=== PATIENT | male | born 1985 | race Caucasian/White ===

== ENCOUNTER 2018-08-04 04:33 | Emergency (ER) | payer MEDICARE, OTHER ==
[~2018-08-04] VITALS: Ht 185.4 cm; Wt 104.3 kg
[~2018-08-04 04:33] MED LIST: ALBIPROI INH; ALBU3IS; ALBU8HFA2 INH; ALBU90OI INH; AMITIZA; AMOCLA875 PO; ANAS1 PO; ARIP15 PO; ARIP30 PO; ATOR20 PO; AZIT250 PO; AZIT500; Acidophilus La100 GM PO; Amoxicillin500 MG PO; Amphetamine Sal20 MG PO; Bactrim Ds Tab1 EACH PO; Bactroban22 GM TOP; CHOL10002 PO; CIME400 PO; CLAR500CR PO; CLIN150 PO; CLON.1 PO; CLOT1TC TOP; CYCL10 PO; Cleocin HCl300 MG PO; DIABETIC VITAMINS; DICL25ER TOP; DIPH50 PO; DOCU100 PO; DOXE50; DOXE50 PO; DOXY100 PO; DULERA 200 MCG/13 GM INH; FENT25TP TOP; FEXPSEER; FLUO20 PO; FLUT.05NI; FURO20 PO; GLUC500 PO; GUAI600T33 PO; HYDACE10 PO; HYDACE10B PO; HYDACE5 PO; HYDCHL50 PO; HYDGUAL120 PO; HYDMOR4 PO; HYDR1TAB94 PO; IBUP800 PO; INS70/30PN SUBQ; INSDET100 SUBQ; INSU100I6; INSUASPI; INSUASPI SC; INSUL100I SUBQ; KETO10 PO; Keflex500 MG PO; LAMO25 PO; LANS30EC; LATUDA20 MG PO; LATUDA40 MG PO; LEVEMIR FL100 UNIT/1; LISI5 PO; LORA1 PO; LORA2 PO; MAGCIT300 PO; MEDICAL MARIJUANA; METF500 PO; METF500C PO; METH10 PO; METH5 PO; METO10 PO; MODA200 PO; MOMENI; MONT10T; MORP30 PO; MORP30ER PO; MULVITMIND PO; MUSCLE RELAXER; NAPR500; NAPR500 PO; OMEP20ER PO; ONDA4ODT MM; ONDA4ODT PO; OXYACE10 PO; OXYACE5T PO; OXYC5 PO; PANT40 PO; PENVK500 PO; POLY17UD PO; POTCHL20ER PO; PRED10; PRED20 PO; PREG100 PO; PROCODE120 PO; PROM25 PO; PROM25S PR; PSYL5.85P PO; RANI150 PO; SENN187 PO; SILSUL1TC TOP; SIMV40 PO; SULTRIDS PO; Senna8.6 M1 PO; Senna8.6 MG PO; TAMS.4ER PO; TEMA15; TEMA30 PO; TIZANIDINE HCL4 MG PO; TRAM50 PO; VITAMIN D PO; VITAMINS; VOLTAREN GEL; ZESTORETIC 20-1 EACH PO; ZOLP5 PO; ZYRTEC10 M2 PO; [UNRECOGNIZED DRUG - OTHER]
== END 2018-08-04 05:23 | disposition home or self-care (01) ==
LOC: ER 04:33
DX: E10.65 Type 1 diabetes mellitus with hyperglycemia (principal); F10.10 Alcohol abuse, uncomplicated; Z88.1 Allergy status to other antibiotic agents; Z79.4 Long term (current) use of insulin; I10 Essential (primary) hypertension; E10.40 Type 1 diabetes mellitus with diabetic neuropathy, unspecified; Z87.891 Personal history of nicotine dependence
CPT/HCPCS: 82947; 99283

== ENCOUNTER 2020-10-17 18:54 | Emergency (ER) | payer MEDICARE, OTHER ==
[~2020-10-17] VITALS: Ht 188 cm; Wt 172.4 kg
[~2020-10-17 18:54] MED LIST changes: -LEVEMIR FL100 UNIT/1; +LEVEMIR FL100 UNIT/2 SC
[2020-10-17 19:20] LABS: Hematocrit 35.7 % (37.0-53.0); Hemoglobin 11.4 g/dL (13.5-17.5); Mean Corpuscular HGB 30.2 pg (26.0-34.0); Mean Corpuscular HGB Conc 31.9 g/dL (31.5-36.5); Mean Corpuscular Volume 95 fL (80-100); Mean Platelet Volume 11.1 fL (9.1-12.4); NRBC ABSOLUTE 1.82 K/mm3 (0.00-0.02); NRBC Auto 1.4 /100 WBC (0.0-0.2); Platelet Count 158 K/mm3 (150-400); RDW Coefficient Variation 15.9 % (11.7-14.2); RDW Standard Deviation 54.6 fL (35.1-46.3); Red Blood Cell Count 3.77 M/mm3 (4.30-5.90)
[2020-10-17 19:27] LABS: White Blood Cell Count 132.63 K/mm3 (4.00-11.30)
[2020-10-17 19:40] LABS: Alanine Aminotransfer (ALT/SGP 37 U/L (12-78); Albumin, Blood 3.4 g/dL (3.4-5.0); Albumin/Globulin Ratio 0.7 (0.8-1.8); Alk Phos 128 U/L (50-136); Anion Gap 6 mmol/L (6-16); Aspartate Aminotrans (AST/SGOT 27 U/L (12-37); Bilirubin, Total 0.6 mg/dL (0.1-1.0); Blood Urea Nitrogen 9 mg/dL (8-24); Bun/Creatinine Ratio 10.2 (12.0-20.0); CO2, Blood 27 mmol/L (21-32); Chloride, Blood 104 mmol/L (98-108); Creatinine, Blood 0.88 mg/dL (0.60-1.20); Globulin, Blood 4.9 g/dL (2.2-4.0); Glomerular Filtration Rate >60 (60-); Glucose, Blood 145 mg/dL (70-99); Potassium, Blood 3.9 mmol/L (3.5-5.5); Sodium, Blood 137 mmol/L (136-145); Total Protein, Blood 8.3 g/dL (6.4-8.2); Troponin I <0.015 ng/mL (0.000-0.040)
[2020-10-17] MEDS ORDERED: FIASP 100100 UNIT/3 SC (19:54)
[2020-10-17] MEDS ORDERED: Prilosec10 M1 PO (19:57)
[2020-10-17 20:12] LABS: BAND PERCENT MAN 6 % (0-8); BASOPHILS ABSOLUTE MAN 11.93 K/mm3 (0.00-0.23); BASOPHILS PERCENT MAN 9 % (0-2); BLASTS PERCENT MAN 12 % (0-0); EOSINOPHILS ABSOLUTE MAN 3.97 K/mm3 (0.00-0.68); EOSINOPHILS PERCENT MAN 3 % (0-6); LYMPHOCYTES ABSOLUTE MAN 7.95 K/mm3 (0.84-5.20); LYMPHOCYTES PERCENT MAN 6 % (21-46); METAMYELOCYTE ABSOLUTE MAN 11.93 K/mm3 (0.00-0.00); METAMYELOCYTE PERCENT MAN 9 % (0-0); MONOCYTES ABSOLUTE MAN 10.61 K/mm3 (0.16-1.47); MONOCYTES PERCENT MAN 8 % (4-13); MYELOCYTE ABSOLUTE MAN 2.65 K/mm3 (0.00-0.00); MYELOCYTE PERCENT MAN 2 % (0-0); NEUTROPHILS ABSOLUTE MAN 67.64 K/mm3 (1.96-9.15); SEG NEUTROPHILS PERCENT MAN 45 % (41-73); TOTAL CELLS COUNTED 100
[2020-10-17 21:53] LABS: Influenza A, PCR NEGATIVE (NEGATIVE); Influenza B, PCR NEGATIVE (NEGATIVE); Resp Syncytial Virus, PCR NEGATIVE (NEGATIVE); SARS-Cov-2 (COVID-19) PCR, MMC NEGATIVE (NEGATIVE)
== END 2020-10-18 04:29 | disposition short-term general hospital (02) ==
LOC: ER 18:54
PROVIDERS: Emergency Medicine; Physician Assistant
DX: R16.1 Splenomegaly, not elsewhere classified (principal); R59.1 Generalized enlarged lymph nodes; G47.30 Sleep apnea, unspecified; E66.9 Obesity, unspecified; L03.115 Cellulitis of right lower limb; I96 Gangrene, not elsewhere classified; Z79.4 Long term (current) use of insulin; Z79.899 Other long term (current) drug therapy; Z20.822 Contact with and (suspected) exposure to COVID-19
CPT/HCPCS: 0241U; 36415; 71046; 71260; 80053; 82947; 83605; 84484; 85025; 87040; 93005; 93010; 96361; 96374; 96375; 99285-25; J1170; J1885; J2060; J2405; J7030; Q9967

== ENCOUNTER 2021-05-29 10:38 | Emergency (ER) | payer MEDICARE, OTHER ==
[~2021-05-29] VITALS: Ht 188 cm; Wt 167.8 kg
[~2021-05-29 10:38] MED LIST changes: +FIASP 100100 UNIT/3 SC; +Prilosec10 M1 PO
[2021-05-29 11:08] LABS: BASOPHILS ABSOLUTE AUTO 0.03 K/mm3 (0.00-0.23); BASOPHILS PERCENT AUTO 0 % (0-2); EOSINOPHILS PERCENT AUTO 3 % (0-6); Hematocrit 44.9 % (37.0-53.0); Hemoglobin 15.4 g/dL (13.5-17.5); Mean Corpuscular HGB 31.1 pg (26.0-34.0); Mean Corpuscular HGB Conc 34.3 g/dL (31.5-36.5); Mean Corpuscular Volume 91 fL (80-100); Platelet Count 271 K/mm3 (150-400); RDW Coefficient Variation 12.6 % (11.7-14.2); RDW Standard Deviation 41.5 fL (35.1-46.3); Red Blood Cell Count 4.95 M/mm3 (4.30-5.90); White Blood Cell Count 11.25 K/mm3 (4.00-11.30)
[2021-05-29 11:25] LABS: IMMATURE GRAN ABSOLUTE AUTO 0.02 K/mm3 (0.00-0.10); IMMATURE GRAN PERCENT AUTO 0 % (0-1); LYMPHOCYTES ABSOLUTE AUTO 4.15 K/mm3 (0.84-5.20); MONOCYTES ABSOLUTE AUTO 0.87 K/mm3 (0.16-1.47); MONOCYTES PERCENT AUTO 8 % (4-13); NEUTROPHILS ABSOLUTE AUTO 5.88 K/mm3 (1.96-9.15); NEUTROPHILS PERCENT AUTO 52 % (41-73)
[2021-05-29 11:26] LABS: Alanine Aminotransfer (ALT/SGP 34 U/L (12-78); Albumin, Blood 3.6 g/dL (3.4-5.0); Albumin/Globulin Ratio 0.9 (0.8-1.8); Alk Phos 129 U/L (50-136); Anion Gap 8 mmol/L (6-16); Aspartate Aminotrans (AST/SGOT 34 U/L (12-37); Bilirubin, Total 0.4 mg/dL (0.1-1.0); Blood Urea Nitrogen 11 mg/dL (8-24); Bun/Creatinine Ratio 10.5 (12.0-20.0); CO2, Blood 25 mmol/L (21-32); Calcium, Blood 9.1 mg/dL (8.5-10.1); Chloride, Blood 105 mmol/L (98-108); Creatinine, Blood 1.05 mg/dL (0.60-1.20); Glomerular Filtration Rate >60 (60-); Glucose, Blood 185 mg/dL (70-99); Potassium, Blood 4.3 mmol/L (3.5-5.5); Sodium, Blood 138 mmol/L (136-145); Total Protein, Blood 7.6 g/dL (6.4-8.2)
[2021-05-29 11:41] LABS: LYMPHOCYTES PERCENT AUTO 37 % (21-46)
[2021-05-29 12:41] LABS: Source, Urine Clean Catch
[2021-05-29 12:48] LABS: Appearance, Urine Hazy (Clear); Bilirubin, Urine Neg (Neg); Blood, Urine 4+ (Neg); Color, Urine Yellow (P-Yellow); Glucose Qualitative, Urine Neg (Neg); Ketones, Urine Neg (Neg); Leukocyte Esterase, Urine Neg (Neg); Nitrite, Urine Neg (Neg); Protein, Urine 1+ (Neg); Specific Gravity, Urine 1.025 (1.003-1.022); Urobilinogen, Urine NORM (Normal)
[2021-05-29] MEDS ORDERED: OXYACE7.5T PO (13:08)
[2021-05-29 13:16] LABS: Squamous Epithelial Cells Few /hpf (Few); White Blood Cells, Urine 0-2 /hpf (0-5)
[2021-05-29 13:17] LABS: Bacteria Few /hpf
== END 2021-05-29 13:44 | disposition home or self-care (01) ==
LOC: ER 10:38
PROVIDERS: Physician Assistant
DX: N13.2 Hydronephrosis with renal and ureteral calculous obstruction (principal); I10 Essential (primary) hypertension; E10.40 Type 1 diabetes mellitus with diabetic neuropathy, unspecified; K21.9 Gastro-esophageal reflux disease without esophagitis; E78.5 Hyperlipidemia, unspecified; J44.9 Chronic obstructive pulmonary disease, unspecified; Z88.1 Allergy status to other antibiotic agents; Z79.899 Other long term (current) drug therapy; Z87.891 Personal history of nicotine dependence
CPT/HCPCS: 36415; 74176; 80053; 81001; 83690; 85025; 96374; 96375; 99284-25; A9270; J1170; J1885; J2405; J7030

== ENCOUNTER 2021-05-31 06:18 | Emergency (ER) | payer MEDICARE, OTHER ==
[~2021-05-31] VITALS: Ht 188 cm; Wt 167.8 kg
[~2021-05-31 06:18] MED LIST changes: +OXYACE7.5T PO
[2021-05-31] MEDS ORDERED: METO50ER PO (06:47)
[2021-05-31] MEDS ORDERED: 1/2 NS 250ml250 ML (06:48)
[2021-05-31] MEDS ORDERED: Gleevec400 MG PO (06:48)
[2021-05-31 07:00] LABS: BASOPHILS ABSOLUTE AUTO 0.02 K/mm3 (0.00-0.23); BASOPHILS PERCENT AUTO 0 % (0-2); EOSINOPHILS PERCENT AUTO 1 % (0-6); Hematocrit 40.3 % (37.0-53.0); Hemoglobin 13.5 g/dL (13.5-17.5); IMMATURE GRAN ABSOLUTE AUTO 0.03 K/mm3 (0.00-0.10); IMMATURE GRAN PERCENT AUTO 0 % (0-1); LYMPHOCYTES ABSOLUTE AUTO 1.15 K/mm3 (0.84-5.20); LYMPHOCYTES PERCENT AUTO 10 % (21-46); MONOCYTES ABSOLUTE AUTO 1.08 K/mm3 (0.16-1.47); MONOCYTES PERCENT AUTO 9 % (4-13); Mean Corpuscular HGB 30.8 pg (26.0-34.0); Mean Corpuscular HGB Conc 33.5 g/dL (31.5-36.5); Mean Corpuscular Volume 92 fL (80-100); Mean Platelet Volume 12.3 fL (9.1-12.4); NEUTROPHILS ABSOLUTE AUTO 9.58 K/mm3 (1.96-9.15); NEUTROPHILS PERCENT AUTO 80 % (41-73); Platelet Count 178 K/mm3 (150-400); RDW Coefficient Variation 12.4 % (11.7-14.2); RDW Standard Deviation 42.4 fL (35.1-46.3); Red Blood Cell Count 4.38 M/mm3 (4.30-5.90); White Blood Cell Count 11.96 K/mm3 (4.00-11.30)
[2021-05-31 07:22] LABS: Alanine Aminotransfer (ALT/SGP 32 U/L (12-78); Albumin, Blood 3.5 g/dL (3.4-5.0); Alk Phos 124 U/L (50-136); Anion Gap 5 mmol/L (6-16); Aspartate Aminotrans (AST/SGOT 24 U/L (12-37); Bilirubin, Total 0.5 mg/dL (0.1-1.0); Blood Urea Nitrogen 13 mg/dL (8-24); Bun/Creatinine Ratio 9.9 (12.0-20.0); CO2, Blood 28 mmol/L (21-32); Calcium, Blood 8.8 mg/dL (8.5-10.1); Chloride, Blood 103 mmol/L (98-108); Creatinine, Blood 1.31 mg/dL (0.60-1.20); Globulin, Blood 3.6 g/dL (2.2-4.0); Glomerular Filtration Rate >60 (60-); Glucose, Blood 123 mg/dL (70-99); Sodium, Blood 136 mmol/L (136-145); Total Protein, Blood 7.1 g/dL (6.4-8.2)
[2021-05-31 08:25] LABS: Source, Urine Clean Catch
[2021-05-31 08:40] LABS: Appearance, Urine Clear (Clear); Bilirubin, Urine Neg (Neg); Blood, Urine 5+ (Neg); Color, Urine Yellow (P-Yellow); Glucose Qualitative, Urine Neg (Neg); Ketones, Urine 3+ (Neg); Leukocyte Esterase, Urine 1+ (Neg); Nitrite, Urine Neg (Neg); Protein, Urine Neg (Neg); Specific Gravity, Urine 1.015 (1.003-1.022); Urobilinogen, Urine NORM (Normal)
[2021-05-31 09:15] LABS: Squamous Epithelial Cells Few /hpf (Few)
[2021-05-31 09:16] LABS: Bacteria Rare /hpf
[2021-05-31] MEDS ORDERED: OXYC5 PO (10:27)
[2021-05-31] MEDS ORDERED: ADULT GLYCERIN1 EACH PR (10:27)
[2021-05-31] MEDS ORDERED: BISA5EC PO (10:27)
== END 2021-05-31 10:49 | disposition home or self-care (01) ==
LOC: ER 06:18
PROVIDERS: Emergency Medicine
DX: N20.0 Calculus of kidney (principal); K59.00 Constipation, unspecified; K21.9 Gastro-esophageal reflux disease without esophagitis; E78.5 Hyperlipidemia, unspecified; E10.40 Type 1 diabetes mellitus with diabetic neuropathy, unspecified; I10 Essential (primary) hypertension; F17.220 Nicotine dependence, chewing tobacco, uncomplicated; Z88.7 Allergy status to serum and vaccine; Z79.899 Other long term (current) drug therapy
CPT/HCPCS: 36415; 80053; 81001; 83690; 84484; 85025; 87086; 93005; 93010; 96374; 96375; 96376; 99284-25; J1170; J1885; J2405; J7030

== ENCOUNTER 2021-08-08 19:52 | Emergency (ER) | payer MEDICARE, OTHER ==
[~2021-08-08] VITALS: Ht 188 cm; Wt 165.6 kg
[~2021-08-08 19:52] MED LIST changes: +1/2 NS 250ml250 ML; +ADULT GLYCERIN1 EACH PR; +BISA5EC PO; +Gleevec400 MG PO; +METO50ER PO
[2021-08-08 20:11] LABS: BASOPHILS ABSOLUTE AUTO 0.03 K/mm3 (0.00-0.23); BASOPHILS PERCENT AUTO 0 % (0-2); EOSINOPHILS PERCENT AUTO 2 % (0-6); Hematocrit 42.4 % (37.0-53.0); Hemoglobin 14.3 g/dL (13.5-17.5); IMMATURE GRAN ABSOLUTE AUTO 0.03 K/mm3 (0.00-0.10); IMMATURE GRAN PERCENT AUTO 0 % (0-1); LYMPHOCYTES PERCENT AUTO 29 % (21-46); MONOCYTES ABSOLUTE AUTO 0.85 K/mm3 (0.16-1.47); MONOCYTES PERCENT AUTO 7 % (4-13); Mean Corpuscular HGB 30.8 pg (26.0-34.0); Mean Corpuscular HGB Conc 33.7 g/dL (31.5-36.5); Mean Corpuscular Volume 91 fL (80-100); Mean Platelet Volume 12.3 fL (9.1-12.4); NEUTROPHILS ABSOLUTE AUTO 7.26 K/mm3 (1.96-9.15); NEUTROPHILS PERCENT AUTO 62 % (41-73); Platelet Count 282 K/mm3 (150-400); RDW Coefficient Variation 13.2 % (11.7-14.2); RDW Standard Deviation 43.8 fL (35.1-46.3); Red Blood Cell Count 4.65 M/mm3 (4.30-5.90); White Blood Cell Count 11.77 K/mm3 (4.00-11.30)
[2021-08-08] MEDS ORDERED: METOPROLOL TART25 MG PO (20:33)
[2021-08-08] MEDS ORDERED: PRILOSEC OTC20 MG PO (20:34)
[2021-08-08] MEDS ORDERED: OXYC10TA19 PO (20:35)
[2021-08-08] MEDS ORDERED: COMPAZINE10 MG PO (20:36)
[2021-08-08 20:44] LABS: Source, Urine Clean Catch
[2021-08-08 20:47] LABS: Appearance, Urine Clear (Clear); Bilirubin, Urine Neg (Neg); Blood, Urine Neg (Neg); Color, Urine Yellow (P-Yellow); Glucose Qualitative, Urine Neg (Neg); Ketones, Urine Neg (Neg); Leukocyte Esterase, Urine Neg (Neg); Nitrite, Urine Neg (Neg); Protein, Urine 2+ (Neg); Specific Gravity, Urine 1.015 (1.003-1.022); Urobilinogen, Urine NORM (Normal)
[2021-08-08 20:55] LABS: Bacteria Few /hpf; Red Blood Cells, Urine Not Seen /hpf (0-2); Squamous Epithelial Cells Few /hpf (Few); White Blood Cells, Urine 0-2 /hpf (0-5)
[2021-08-08 21:39] LABS: Troponin I <0.015 ng/mL (0.000-0.040)
[2021-08-08 22:00] LABS: Alanine Aminotransfer (ALT/SGP 33 U/L (12-78); Albumin, Blood 3.8 g/dL (3.4-5.0); Albumin/Globulin Ratio 1.2 (0.8-1.8); Alk Phos 134 U/L (50-136); Anion Gap 3 mmol/L (6-16); Aspartate Aminotrans (AST/SGOT 27 U/L (12-37); Bilirubin, Total 0.4 mg/dL (0.1-1.0); Blood Urea Nitrogen 13 mg/dL (8-24); Bun/Creatinine Ratio 13.9 (12.0-20.0); CO2, Blood 28 mmol/L (21-32); Calcium, Blood 8.9 mg/dL (8.5-10.1); Chloride, Blood 109 mmol/L (98-108); Creatinine, Blood 0.94 mg/dL (0.60-1.20); Globulin, Blood 3.2 g/dL (2.2-4.0); Glomerular Filtration Rate >60 (60-); Glucose, Blood 41 mg/dL (70-99); Potassium, Blood 4.1 mmol/L (3.5-5.5); Sodium, Blood 140 mmol/L (136-145)
[2021-08-08] MEDS ORDERED: ONDA4ODT SL (22:38)
== END 2021-08-08 22:42 | disposition home or self-care (01) ==
LOC: ER 19:52
PROVIDERS: Emergency Medicine; Physician Assistant
DX: R10.9 Unspecified abdominal pain (principal); C92.10 Chronic myeloid leukemia, BCR/ABL-positive, not having achieved remission; E87.8 Other disorders of electrolyte and fluid balance, not elsewhere classified; E10.40 Type 1 diabetes mellitus with diabetic neuropathy, unspecified; I10 Essential (primary) hypertension; K21.9 Gastro-esophageal reflux disease without esophagitis; E78.5 Hyperlipidemia, unspecified; J44.9 Chronic obstructive pulmonary disease, unspecified; F17.220 Nicotine dependence, chewing tobacco, uncomplicated; Z88.1 Allergy status to other antibiotic agents; Z79.899 Other long term (current) drug therapy
CPT/HCPCS: 36415; 71045; 76705; 80053; 81001; 82947; 84484; 85025; 93005; 93010; 96374; 99284-25; A9270; J2405; J7030

== ENCOUNTER → 2021-08-13 | Outpatient (CLI) | payer MEDICARE, OTHER ==
[~2021-08-13] MED LIST changes: +COMPAZINE10 MG PO; +METOPROLOL TART25 MG PO; +ONDA4ODT SL; +OXYC10TA19 PO; +PRILOSEC OTC20 MG PO
[2021-08-13 20:33] LABS: BASOPHILS ABSOLUTE AUTO 0.03 K/mm3 (0.00-0.23); BASOPHILS PERCENT AUTO 0 % (0-2); EOSINOPHILS PERCENT AUTO 1 % (0-6); Hematocrit 45.5 % (37.0-53.0); Hemoglobin 15.3 g/dL (13.5-17.5); IMMATURE GRAN ABSOLUTE AUTO 0.03 K/mm3 (0.00-0.10); IMMATURE GRAN PERCENT AUTO 0 % (0-1); LYMPHOCYTES ABSOLUTE AUTO 2.52 K/mm3 (0.84-5.20); LYMPHOCYTES PERCENT AUTO 20 % (21-46); MONOCYTES PERCENT AUTO 7 % (4-13); Mean Corpuscular HGB 30.4 pg (26.0-34.0); Mean Corpuscular HGB Conc 33.6 g/dL (31.5-36.5); Mean Corpuscular Volume 91 fL (80-100); NEUTROPHILS ABSOLUTE AUTO 9.35 K/mm3 (1.96-9.15); NEUTROPHILS PERCENT AUTO 72 % (41-73); Platelet Count 275 K/mm3 (150-400); RDW Coefficient Variation 13.2 % (11.7-14.2); RDW Standard Deviation 43.5 fL (35.1-46.3); Red Blood Cell Count 5.03 M/mm3 (4.30-5.90); White Blood Cell Count 12.93 K/mm3 (4.00-11.30)
[2021-08-13 20:38] LABS: Mean Platelet Volume 13.3 fL (9.1-12.4)
[2021-08-13 20:53] LABS: Amylase, Blood 28 U/L (25-115); Thyroid Stimulating Hormone 0.602 uIU/mL (0.360-4.800)
[2021-08-13 21:02] LABS: Alanine Aminotransfer (ALT/SGP 35 U/L (12-78); Albumin/Globulin Ratio 1.2 (0.8-1.8); Alk Phos 135 U/L (50-136); Anion Gap 8 mmol/L (6-16); Aspartate Aminotrans (AST/SGOT 19 U/L (12-37); Bilirubin, Total 0.5 mg/dL (0.1-1.0); Blood Urea Nitrogen 9 mg/dL (8-24); Bun/Creatinine Ratio 9.9 (12.0-20.0); CO2, Blood 27 mmol/L (21-32); Calcium, Blood 9.6 mg/dL (8.5-10.1); Chloride, Blood 107 mmol/L (98-108); Creatinine, Blood 0.91 mg/dL (0.60-1.20); Globulin, Blood 3.4 g/dL (2.2-4.0); Glomerular Filtration Rate >60 (60-); Glucose, Blood 49 mg/dL (70-99); Potassium, Blood 4.4 mmol/L (3.5-5.5); Sodium, Blood 142 mmol/L (136-145); Total Protein, Blood 7.4 g/dL (6.4-8.2)
== END | disposition home or self-care (01) ==
LOC: LAB SHORT 19:55
PROVIDERS: Physician Assistant
DX: R10.11 Right upper quadrant pain (principal); R31.9 Hematuria, unspecified; R53.83 Other fatigue
CPT/HCPCS: 80053; 82150; 83690; 84443; 85025; 87086

== ENCOUNTER → 2022-03-09 | Outpatient (CLI) | payer MEDICARE, OTHER ==
[2022-03-11 09:58] LABS: U Amphetamine Screen Not Detected; U Barbituate Screen Not Detected; U Benzodiazapine Screen Not Detected; U Buprenorphine Screen Not Detected; U Cannabinoids Screen DETECTED; U Cocaine Screen Not Detected; U Methadone Screen Not Detected; U Methamphetamine Screen Not Detected; U Opiates Screen Not Detected; U Oxycodone Screen Not Detected; U Phencyclidine Screen Not Detected; U Propoxyphene Screen Not Detected
== END | disposition home or self-care (01) ==
LOC: LAB 18:07 → LAB SHORT 18:07
PROVIDERS: Internal Medicine Hematology & Oncology
DX: Z51.81 Encounter for therapeutic drug level monitoring (principal); Z79.899 Other long term (current) drug therapy

== ENCOUNTER → 2022-03-29 | Outpatient (CLI) | payer MEDICARE, OTHER ==
[2022-03-29 19:41] LABS: U Amphetamine Screen Not Detected; U Barbituate Screen Not Detected; U Benzodiazapine Screen Not Detected; U Cocaine Screen Not Detected; U Methadone Screen Not Detected; U Methamphetamine Screen Not Detected; U Opiates Screen DETECTED; U Oxycodone Screen DETECTED; U Phencyclidine Screen Not Detected
[2022-03-29 19:42] LABS: U Buprenorphine Screen Not Detected; U Cannabinoids Screen Not Detected; U Propoxyphene Screen Not Detected
== END | disposition home or self-care (01) ==
LOC: LAB SHORT 15:28 → LAB 15:28
PROVIDERS: Internal Medicine Hematology & Oncology
DX: Z51.81 Encounter for therapeutic drug level monitoring (principal); Z79.899 Other long term (current) drug therapy

== ENCOUNTER → 2022-04-08 | Outpatient (CLI) | payer MEDICARE, OTHER ==
[2022-04-08 19:37] LABS: U Amphetamine Screen Not Detected; U Barbituate Screen Not Detected; U Benzodiazapine Screen Not Detected; U Buprenorphine Screen Not Detected; U Cannabinoids Screen Not Detected; U Cocaine Screen Not Detected; U Methadone Screen Not Detected; U Methamphetamine Screen Not Detected; U Opiates Screen DETECTED; U Oxycodone Screen DETECTED; U Phencyclidine Screen Not Detected; U Propoxyphene Screen Not Detected
== END | disposition home or self-care (01) ==
LOC: LAB SHORT 18:51 → LAB 18:51
PROVIDERS: Internal Medicine Hematology & Oncology
DX: N50.811 Right testicular pain (principal); Z79.899 Other long term (current) drug therapy

== ENCOUNTER → 2022-04-26 | Outpatient (CLI) | payer MEDICARE, OTHER ==
[2022-04-26 17:56] LABS: U Cannabinoids Screen DETECTED
[2022-04-26 17:57] LABS: U Amphetamine Screen Not Detected; U Barbituate Screen Not Detected; U Benzodiazapine Screen DETECTED; U Buprenorphine Screen Not Detected; U Cocaine Screen Not Detected; U Methadone Screen Not Detected; U Methamphetamine Screen Not Detected; U Opiates Screen Not Detected; U Oxycodone Screen DETECTED; U Phencyclidine Screen Not Detected; U Propoxyphene Screen Not Detected
== END ==
LOC: LAB SHORT 17:09
PROVIDERS: Internal Medicine Hematology & Oncology
DX: Z79.899 Other long term (current) drug therapy (principal)

== ENCOUNTER → 2022-05-25 | Outpatient (CLI) | payer MEDICARE, OTHER ==
[~2022-05-25] MED LIST changes: +INSULIN SYRING SC; +NOVOLIN N100 UNIT/2 SC; +NOVOLOG FL100 UNIT/3 SC
[2022-05-25 13:48] LABS: U Benzodiazapine Screen DETECTED; U Buprenorphine Screen Not Detected; U Cannabinoids Screen DETECTED; U Opiates Screen Not Detected; U Oxycodone Screen DETECTED; U Phencyclidine Screen Not Detected; U Propoxyphene Screen Not Detected
[2022-05-25 13:49] LABS: U Amphetamine Screen Not Detected; U Barbituate Screen Not Detected; U Cocaine Screen Not Detected; U Methadone Screen Not Detected; U Methamphetamine Screen Not Detected
== END ==
LOC: LAB SHORT 11:39 → LAB 11:39
PROVIDERS: Internal Medicine Hematology & Oncology
DX: Z51.81 Encounter for therapeutic drug level monitoring (principal); Z79.899 Other long term (current) drug therapy
CPT/HCPCS: G0480

== ENCOUNTER 2022-06-07 14:40 | Emergency (ER) | payer MEDICARE, OTHER ==
[~2022-06-07] VITALS: Ht 188 cm; Wt 154.2 kg
[~2022-06-07 14:40] MED LIST changes: -INSULIN SYRING SC; -NOVOLIN N100 UNIT/2 SC; -NOVOLOG FL100 UNIT/3 SC
[2022-06-07] MEDS ORDERED: NOVOLIN N100 UNIT/2 SC (15:28)
[2022-06-07] MEDS ORDERED: INSULIN SYRING SC (15:30)
[2022-06-07] MEDS ORDERED: NOVOLOG FL100 UNIT/3 SC (15:56)
== END 2022-06-07 15:32 | disposition home or self-care (01) ==
LOC: ER 14:40
DX: Z76.0 Encounter for issue of repeat prescription (principal); E10.9 Type 1 diabetes mellitus without complications; I10 Essential (primary) hypertension; K21.9 Gastro-esophageal reflux disease without esophagitis; J44.9 Chronic obstructive pulmonary disease, unspecified; Z88.1 Allergy status to other antibiotic agents; Z79.4 Long term (current) use of insulin; Z79.899 Other long term (current) drug therapy; Z79.2 Long term (current) use of antibiotics
CPT/HCPCS: 99281

== ENCOUNTER → 2022-06-24 | Outpatient (CLI) | payer MEDICARE, OTHER ==
[~2022-06-24] MED LIST changes: +INSULIN SYRING SC; +NOVOLIN N100 UNIT/2 SC; +NOVOLOG FL100 UNIT/3 SC
[2022-06-24 17:42] LABS: U Amphetamine Screen Not Detected; U Barbituate Screen Not Detected; U Benzodiazapine Screen DETECTED; U Methamphetamine Screen Not Detected
[2022-06-24 17:43] LABS: U Buprenorphine Screen Not Detected; U Cannabinoids Screen DETECTED; U Cocaine Screen Not Detected; U Methadone Screen Not Detected; U Opiates Screen DETECTED; U Oxycodone Screen DETECTED; U Phencyclidine Screen Not Detected; U Propoxyphene Screen Not Detected
[2022-06-24 18:13] LABS: Thyroxine (T4) 10.7 ug/dL (4.5-12.1)
[2022-06-24 18:14] LABS: Thyroid Stimulating Hormone 1.25 uIU/mL (0.360-4.800)
[2022-06-25 21:10] LABS: FREE TESTOSTERONE(DIRECT) 9.6 pg/mL (8.7-25.1); TESTOSTERONE, SERUM 287 ng/dL (264-916)
== END | disposition home or self-care (01) ==
LOC: LAB SHORT 15:01 → LAB 15:01
PROVIDERS: Internal Medicine Hematology & Oncology
DX: E29.1 Testicular hypofunction (principal); Z79.899 Other long term (current) drug therapy
CPT/HCPCS: 84402; 84403; 84436; 84443

== ENCOUNTER 2022-06-27 18:41 | Emergency (ER) | payer MEDICARE, OTHER ==
[~2022-06-27] VITALS: Ht 188 cm; Wt 154.2 kg
[2022-06-27 20:20] LABS: BASOPHILS ABSOLUTE AUTO 0.02 K/mm3 (0.00-0.23); BASOPHILS PERCENT AUTO 0 % (0-2); EOSINOPHILS ABSOLUTE AUTO 0.06 K/mm3 (0.00-0.68); EOSINOPHILS PERCENT AUTO 1 % (0-6); Hemoglobin 14.4 g/dL (13.5-17.5); IMMATURE GRAN ABSOLUTE AUTO 0.03 K/mm3 (0.00-0.10); IMMATURE GRAN PERCENT AUTO 0 % (0-1); LYMPHOCYTES ABSOLUTE AUTO 2.42 K/mm3 (0.84-5.20); LYMPHOCYTES PERCENT AUTO 24 % (21-46); MONOCYTES ABSOLUTE AUTO 0.52 K/mm3 (0.16-1.47); MONOCYTES PERCENT AUTO 5 % (4-13); Mean Corpuscular HGB 30.8 pg (26.0-34.0); Mean Corpuscular HGB Conc 34.3 g/dL (31.5-36.5); Mean Corpuscular Volume 90 fL (80-100); Mean Platelet Volume 12.4 fL (9.1-12.4); NEUTROPHILS ABSOLUTE AUTO 7.13 K/mm3 (1.96-9.15); NEUTROPHILS PERCENT AUTO 70 % (41-73); Platelet Count 239 K/mm3 (150-400); RDW Coefficient Variation 12.4 % (11.7-14.2); RDW Standard Deviation 40.9 fL (35.1-46.3); Red Blood Cell Count 4.68 M/mm3 (4.30-5.90); White Blood Cell Count 10.18 K/mm3 (4.00-11.30)
[2022-06-27 20:36] LABS: Albumin, Blood 3.8 g/dL (3.4-5.0); Albumin/Globulin Ratio 1.1 (0.8-1.8); Bilirubin, Total 0.7 mg/dL (0.1-1.0); Bun/Creatinine Ratio 10.8 (12.0-20.0); Calcium, Blood 8.8 mg/dL (8.5-10.1); Creatinine, Blood 0.92 mg/dL (0.60-1.20); Globulin, Blood 3.4 g/dL (2.2-4.0); Potassium, Blood 3.7 mmol/L (3.5-5.5); Total Protein, Blood 7.2 g/dL (6.4-8.2)
[2022-06-27 21:25] LABS: Influenza A, PCR NEGATIVE (NEGATIVE); Influenza B, PCR NEGATIVE (NEGATIVE); Resp Syncytial Virus, PCR NEGATIVE (NEGATIVE); SARS-Cov-2 (COVID-19) PCR, MMC NEGATIVE (NEGATIVE)
== END 2022-06-28 00:25 | disposition left against medical advice (07) ==
LOC: ER 18:41
PROVIDERS: Student in an Organized Health Care Education/Training Program
DX: R53.1 Weakness (principal); R51.9 Headache, unspecified; H53.8 Other visual disturbances; E10.40 Type 1 diabetes mellitus with diabetic neuropathy, unspecified; I10 Essential (primary) hypertension; K21.9 Gastro-esophageal reflux disease without esophagitis; E78.5 Hyperlipidemia, unspecified; J44.9 Chronic obstructive pulmonary disease, unspecified; Z87.891 Personal history of nicotine dependence; Z20.822 Contact with and (suspected) exposure to COVID-19; Z88.1 Allergy status to other antibiotic agents; Z79.899 Other long term (current) drug therapy
CPT/HCPCS: 0241U; 36415; 70450; 71045; 80053; 83690; 84484; 85025; 93005; 93010; A9270; J0780; J2405

== ENCOUNTER → 2022-07-13 | Outpatient (CLI) | payer MEDICARE, OTHER ==
[2022-07-13 17:59] LABS: U Amphetamine Screen Not Detected; U Barbituate Screen Not Detected; U Benzodiazapine Screen Not Detected; U Buprenorphine Screen Not Detected; U Cannabinoids Screen DETECTED; U Cocaine Screen Not Detected; U Methadone Screen Not Detected; U Methamphetamine Screen Not Detected; U Opiates Screen Not Detected; U Oxycodone Screen DETECTED; U Phencyclidine Screen Not Detected; U Propoxyphene Screen Not Detected
== END | disposition home or self-care (01) ==
LOC: LAB 16:13 → LAB SHORT 16:13
PROVIDERS: Internal Medicine Hematology & Oncology
DX: Z51.81 Encounter for therapeutic drug level monitoring (principal); Z79.899 Other long term (current) drug therapy

== ENCOUNTER → 2022-08-19 | Outpatient (CLI) | payer MEDICARE, OTHER ==
[2022-08-19 19:52] LABS: Hematocrit 45.3 % (37.0-53.0); Hemoglobin 15.4 g/dL (13.5-17.5); Mean Corpuscular HGB 30.6 pg (26.0-34.0); Mean Corpuscular Volume 90 fL (80-100); Mean Platelet Volume 12.4 fL (9.1-12.4); Platelet Count 289 K/mm3 (150-400); RDW Coefficient Variation 12.4 % (11.7-14.2); RDW Standard Deviation 40.5 fL (35.1-46.3); Red Blood Cell Count 5.03 M/mm3 (4.30-5.90); White Blood Cell Count 21.41 K/mm3 (4.00-11.30)
[2022-08-19 20:33] LABS: BAND PERCENT MAN 2 % (0-8); BASOPHILS ABSOLUTE MAN 0.85 K/mm3 (0.00-0.23); BASOPHILS PERCENT MAN 4 % (0-2); EOSINOPHILS ABSOLUTE MAN 0.21 K/mm3 (0.00-0.68); EOSINOPHILS PERCENT MAN 1 % (0-6); LYMPHOCYTES ABSOLUTE MAN 4.06 K/mm3 (0.84-5.20); LYMPHOCYTES PERCENT MAN 19 % (21-46); MONOCYTES ABSOLUTE MAN 1.92 K/mm3 (0.16-1.47); MONOCYTES PERCENT MAN 9 % (4-13); MYELOCYTE ABSOLUTE MAN 1.49 K/mm3 (0.00-0.00); MYELOCYTE PERCENT MAN 7 % (0-0); NEUTROPHILS ABSOLUTE MAN 12.84 K/mm3 (1.96-9.15); SEG NEUTROPHILS PERCENT MAN 58 % (41-73); TOTAL CELLS COUNTED 100
[2022-08-19 22:12] LABS: Albumin/Globulin Ratio 1.2 (0.8-1.8); Bilirubin, Total 0.3 mg/dL (0.1-1.0); Bun/Creatinine Ratio 11.4 (12.0-20.0); Calcium, Blood 9.6 mg/dL (8.5-10.1); Creatinine, Blood 1.05 mg/dL (0.60-1.20); Globulin, Blood 3.2 g/dL (2.2-4.0); Potassium, Blood 4.5 mmol/L (3.5-5.5); Total Protein, Blood 7.2 g/dL (6.4-8.2)
== END | disposition home or self-care (01) ==
LOC: LAB SHORT 17:20 → LAB 17:20
PROVIDERS: Internal Medicine Hematology & Oncology
DX: D72.829 Elevated white blood cell count, unspecified (principal)
CPT/HCPCS: 80053; 84100; 85025

== ENCOUNTER 2022-08-20 16:20 | Emergency (ER) | payer MEDICARE, OTHER ==
[~2022-08-20] VITALS: Ht 188 cm; Wt 156.5 kg
[2022-08-20 17:09] LABS: Hematocrit 41.8 % (37.0-53.0); Hemoglobin 14.3 g/dL (13.5-17.5); Mean Corpuscular HGB 30.3 pg (26.0-34.0); Mean Corpuscular HGB Conc 34.2 g/dL (31.5-36.5); Mean Corpuscular Volume 89 fL (80-100); Mean Platelet Volume 12.3 fL (9.1-12.4); Platelet Count 238 K/mm3 (150-400); RDW Coefficient Variation 12.3 % (11.7-14.2); RDW Standard Deviation 39.9 fL (35.1-46.3); Red Blood Cell Count 4.72 M/mm3 (4.30-5.90); White Blood Cell Count 16.84 K/mm3 (4.00-11.30)
[2022-08-20 17:31] LABS: Albumin, Blood 3.6 g/dL (3.4-5.0); Albumin/Globulin Ratio 1.1 (0.8-1.8); Bilirubin, Total 0.2 mg/dL (0.1-1.0); Bun/Creatinine Ratio 10.9 (12.0-20.0); Calcium, Blood 8.9 mg/dL (8.5-10.1); Creatinine, Blood 0.91 mg/dL (0.60-1.20); Globulin, Blood 3.2 g/dL (2.2-4.0); Potassium, Blood 4.4 mmol/L (3.5-5.5); Total Protein, Blood 6.8 g/dL (6.4-8.2)
[2022-08-20 17:47] LABS: Influenza A, PCR NEGATIVE (NEGATIVE); Influenza B, PCR NEGATIVE (NEGATIVE); Resp Syncytial Virus, PCR NEGATIVE (NEGATIVE); SARS-Cov-2 (COVID-19) PCR, MMC NEGATIVE (NEGATIVE)
[2022-08-20 18:33] LABS: Source, Urine Clean Catch
[2022-08-20 18:43] LABS: BAND PERCENT MAN 1 % (0-8); BASOPHILS ABSOLUTE MAN 0.16 K/mm3 (0.00-0.23); BASOPHILS PERCENT MAN 1 % (0-2); EOSINOPHILS PERCENT MAN 0 % (0-6); LYMPHOCYTES ABSOLUTE MAN 3.36 K/mm3 (0.84-5.20); LYMPHOCYTES PERCENT MAN 20 % (21-46); METAMYELOCYTE ABSOLUTE MAN 0.67 K/mm3 (0.00-0.00); METAMYELOCYTE PERCENT MAN 4 % (0-0); MONOCYTES ABSOLUTE MAN 1.85 K/mm3 (0.16-1.47); MONOCYTES PERCENT MAN 11 % (4-13); MYELOCYTE ABSOLUTE MAN 0.67 K/mm3 (0.00-0.00); MYELOCYTE PERCENT MAN 4 % (0-0); SEG NEUTROPHILS PERCENT MAN 59 % (41-73); TOTAL CELLS COUNTED 100
[2022-08-20 18:50] LABS: Appearance, Urine Clear (Clear); Bilirubin, Urine Neg (Neg); Blood, Urine Neg (Neg); Color, Urine Yellow (P-Yellow); Glucose Qualitative, Urine Neg (Neg); Ketones, Urine Neg (Neg); Leukocyte Esterase, Urine Neg (Neg); Nitrite, Urine Neg (Neg); Protein, Urine Neg (Neg); Urobilinogen, Urine NORM (Normal)
== END 2022-08-20 20:53 | disposition home or self-care (01) ==
LOC: ER 16:20
PROVIDERS: Physician Assistant
DX: R07.9 Chest pain, unspecified (principal); R10.9 Unspecified abdominal pain; R53.83 Other fatigue; E10.9 Type 1 diabetes mellitus without complications; I10 Essential (primary) hypertension; K21.9 Gastro-esophageal reflux disease without esophagitis; J44.9 Chronic obstructive pulmonary disease, unspecified; F17.220 Nicotine dependence, chewing tobacco, uncomplicated; Z88.1 Allergy status to other antibiotic agents; Z20.822 Contact with and (suspected) exposure to COVID-19; Z79.4 Long term (current) use of insulin; Z79.899 Other long term (current) drug therapy
CPT/HCPCS: 0241U; 36415; 71046; 80053; 81003; 83605; 84484; 85025; 85379; 93005; 93010; J2405

== ENCOUNTER 2022-10-04 16:38 | Observation (INO) | payer MEDICARE, OTHER ==
[~2022-10-04] VITALS: Ht 188 cm; Wt 158.8 kg
[2022-10-04 17:28] LABS: Hematocrit 42.2 % (37.0-53.0); Hemoglobin 14.6 g/dL (13.5-17.5); Mean Corpuscular HGB 30.7 pg (26.0-34.0); Mean Corpuscular HGB Conc 34.6 g/dL (31.5-36.5); Mean Corpuscular Volume 89 fL (80-100); Mean Platelet Volume 11.8 fL (9.1-12.4); NRBC ABSOLUTE 0.06 K/mm3 (0.00-0.02); NRBC Auto 0.1 /100 WBC (0.0-0.2); Platelet Count 186 K/mm3 (150-400); RDW Coefficient Variation 14.6 % (11.7-14.2); RDW Standard Deviation 46.3 fL (35.1-46.3); Red Blood Cell Count 4.75 M/mm3 (4.30-5.90)
[2022-10-04 17:36] LABS: White Blood Cell Count 51.38 K/mm3 (4.00-11.30)
[2022-10-04 18:02] LABS: Albumin, Blood 3.9 g/dL (3.4-5.0); Albumin/Globulin Ratio 1.1 (0.8-1.8); Bilirubin, Total 0.5 mg/dL (0.1-1.0); Bun/Creatinine Ratio 20.1 (12.0-20.0); Calcium, Blood 9.6 mg/dL (8.5-10.1); Creatinine, Blood 0.75 mg/dL (0.60-1.20); Globulin, Blood 3.7 g/dL (2.2-4.0); Potassium, Blood 4.4 mmol/L (3.5-5.5); Total Protein, Blood 7.6 g/dL (6.4-8.2)
[2022-10-04 18:03] LABS: BAND PERCENT MAN 13 % (0-8); BASOPHILS ABSOLUTE MAN 1.54 K/mm3 (0.00-0.23); BASOPHILS PERCENT MAN 3 % (0-2); BLASTS PERCENT MAN 1 % (0-0); EOSINOPHILS ABSOLUTE MAN 0.51 K/mm3 (0.00-0.68); EOSINOPHILS PERCENT MAN 1 % (0-6); LYMPHOCYTES ABSOLUTE MAN 2.56 K/mm3 (0.84-5.20); LYMPHOCYTES PERCENT MAN 5 % (21-46); METAMYELOCYTE ABSOLUTE MAN 2.56 K/mm3 (0.00-0.00); METAMYELOCYTE PERCENT MAN 5 % (0-0); MONOCYTES ABSOLUTE MAN 3.08 K/mm3 (0.16-1.47); MONOCYTES PERCENT MAN 6 % (4-13); MYELOCYTE ABSOLUTE MAN 2.05 K/mm3 (0.00-0.00); MYELOCYTE PERCENT MAN 4 % (0-0); NEUTROPHILS ABSOLUTE MAN 38.53 K/mm3 (1.96-9.15); SEG NEUTROPHILS PERCENT MAN 62 % (41-73); TOTAL CELLS COUNTED 100
[2022-10-04 19:51] LABS: Source, Urine Clean Catch
[2022-10-04 20:01] LABS: Appearance, Urine Clear (Clear); Bilirubin, Urine Neg (Neg); Blood, Urine Neg (Neg); Color, Urine Yellow (P-Yellow); Glucose Qualitative, Urine Neg (Neg); Ketones, Urine Neg (Neg); Leukocyte Esterase, Urine Neg (Neg); Nitrite, Urine Neg (Neg); Protein, Urine Neg (Neg); Urobilinogen, Urine NORM (Normal)
[2022-10-04 21:00] LABS: Thyroid Stimulating Hormone 0.515 uIU/mL (0.360-4.800)
[2022-10-04] MEDS ORDERED: ROXICODONE15 MG PO (23:00)
[2022-10-04] MEDS ORDERED: LOSA25 PO (23:01)
[2022-10-05 00:17] LABS: Free Thyroxine 1.06 ng/dL (0.70-1.60)
--- NOTE | 2022-10-05 01:03 | NUR ---
ADMIT NOTE HANDOFF RECEIVED FROM TENSION WORKER LOLIS. PT ARRIVED TO FLOOR VIA GURNEY. PERSONAL POSSESSIONS WITH PT. PT ORIENTED TO UNIT. CALL BUTTON WITHIN REACH. IV FLUIDS INFUSING ORDERED. TELEMETRY IN PLACE
--- NOTE | 2022-10-05 01:13 | NUR ---
PT STATUS PT REFUSING COVID SWAB TEST. PT DID ATTEMPT TO TAKE HIS HOME INSULIN IN HIS ROOM. WE TESTED HIS BLOOD SUGAR AT 77. I DID INFORM HIM THAT THE HOSPITAL WOULD PROVIDE HIS MEDICATIONS ENTIRELY AND HE WAS NOT TO TAKE HIS HOME MEDICATIONS. HE DID REFUSE TO GIVE HIS HOME MEDICATIONS TO US FOR SAFE KEEPING. CHARGE INFORMED.
[2022-10-05 02:01] LABS: U Amphetamine Screen Not Detected; U Barbituate Screen Not Detected; U Benzodiazapine Screen Not Detected; U Cannabinoids Screen DETECTED; U Cocaine Screen Not Detected; U Methamphetamine Screen Not Detected; U Oxycodone Screen DETECTED
[2022-10-05 02:02] LABS: U Buprenorphine Screen Not Detected; U Methadone Screen Not Detected; U Opiates Screen Not Detected; U Phencyclidine Screen Not Detected; U Propoxyphene Screen Not Detected
[2022-10-05] MEDS ORDERED: MONT10T PO (03:47)
[2022-10-05] MEDS ORDERED: Sprycel20 MG PO (03:49)
[2022-10-05] MEDS ORDERED: NALOXONE HCL4 MG (03:50)
[2022-10-05] MEDS ORDERED: NOVOLOG FL100 UNIT/3 SC (03:54)
[2022-10-05] MEDS ORDERED: BASAGLAR K100 UNIT/8 SC (03:55)
--- NOTE | 2022-10-05 04:27 | NUR ---
SHIFT SUMMARY ADMITTED FROM ED THIS SHIFT FOR LEUKOCYTOSIS. PAIN MEDS AND NICOTINE REPLACEMENT ORDERED. IV FLUIDS INFUSING. AM LABS PENDING. WILL CONTINUE TO MONITOR AND PROVIDE CARE THROUGHOUT SHIFT.
[2022-10-05 07:52] LABS: Hematocrit 40.4 % (37.0-53.0); Hemoglobin 13.8 g/dL (13.5-17.5); Mean Corpuscular HGB Conc 34.2 g/dL (31.5-36.5); Mean Corpuscular Volume 91 fL (80-100); Mean Platelet Volume 11.7 fL (9.1-12.4); NRBC ABSOLUTE 0.12 K/mm3 (0.00-0.02); NRBC Auto 0.2 /100 WBC (0.0-0.2); Platelet Count 166 K/mm3 (150-400); RDW Coefficient Variation 14.6 % (11.7-14.2); RDW Standard Deviation 47.8 fL (35.1-46.3); Red Blood Cell Count 4.45 M/mm3 (4.30-5.90); White Blood Cell Count 48.55 K/mm3 (4.00-11.30)
[2022-10-05 08:10] LABS: Albumin, Blood 3.6 g/dL (3.4-5.0); Bilirubin, Total 0.4 mg/dL (0.1-1.0); Bun/Creatinine Ratio 18.9 (12.0-20.0); Creatinine, Blood 0.9 mg/dL (0.60-1.20); Globulin, Blood 3.5 g/dL (2.2-4.0); Potassium, Blood 4.2 mmol/L (3.5-5.5); Total Protein, Blood 7.1 g/dL (6.4-8.2)
[2022-10-05 08:19] LABS: BAND PERCENT MAN 10 % (0-8); BASOPHILS ABSOLUTE MAN 1.94 K/mm3 (0.00-0.23); BASOPHILS PERCENT MAN 4 % (0-2); EOSINOPHILS ABSOLUTE MAN 0.97 K/mm3 (0.00-0.68); EOSINOPHILS PERCENT MAN 2 % (0-6); LYMPHOCYTES ABSOLUTE MAN 1.45 K/mm3 (0.84-5.20); LYMPHOCYTES PERCENT MAN 3 % (21-46); METAMYELOCYTE ABSOLUTE MAN 1.45 K/mm3 (0.00-0.00); METAMYELOCYTE PERCENT MAN 3 % (0-0); MONOCYTES ABSOLUTE MAN 0.97 K/mm3 (0.16-1.47); MONOCYTES PERCENT MAN 2 % (4-13); MYELOCYTE ABSOLUTE MAN 1.45 K/mm3 (0.00-0.00); MYELOCYTE PERCENT MAN 3 % (0-0); NEUTROPHILS ABSOLUTE MAN 39.81 K/mm3 (1.96-9.15); SEG NEUTROPHILS PERCENT MAN 72 % (41-73); TOTAL CELLS COUNTED 100
[2022-10-05 08:20] LABS: PROMYELOCYTE ABSOLUTE MAN 0.48 K/mm3 (0.00-0.00); PROMYELOCYTE PERCENT MAN 1 % (0-0)
[2022-10-05] MEDS ORDERED: Ondansetron Odt8 MG SL (13:06)
--- NOTE | 2022-10-05 15:34 | NUR ---
Spiritual care visit attempted. Upon receiving a referral for spiritual care, I visited patient. Patient's RN asked If he would like to see the Property Site Manager to which the patient replied, "Not today, I am not feeling well." I will cotcelianue to remain available to patient and family.
[2022-10-05] MEDS ORDERED: NICO2 PO (18:04)
[2022-10-05] MEDS ORDERED: HYDURE500 PO (18:07)
--- NOTE | 2022-10-05 18:51 | NUR ---
SHIFT SUMMARY PT A&OX4 AND PLEASANT. PT C/O GENERALIZED CHRONIC PAIN. MEDICATED PER EMAR. PT VERBALIZED THAT INSULIN COVERAGE WAS NOT ENOUGH TO MANAGE HIS DM. PT PLACED ON MED SLIDING SCALE. PT CONTINUED TO VERBALIZE THAT MED SCALE WAS STILL NOT ENOUGH COVERAGE AND STATED HE "TAKES 45 UNITS WITH MEALS". DR BROWNE NOTIFIED AND PT PLACED ON HIGH SLIDING SCALE. PT'S AFTERNOON BG WAS 54. ORANGE JUICE GIVEN AND BG RECHECKED. 1630 INSULIN NOT GIVEN. PT TO DISCHARGE. BED IN LOWEST POSITION AND CALL LIGHT IN REACH.
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
== END 2022-10-05 20:01 | disposition home or self-care (01) ==
LOC: ER 16:38 → MEDS 16:39
PROVIDERS: Physician Assistant; ADMIT Internal Medicine
DX: C92.10 Chronic myeloid leukemia, BCR/ABL-positive, not having achieved remission (principal); E10.40 Type 1 diabetes mellitus with diabetic neuropathy, unspecified; I10 Essential (primary) hypertension; R42 Dizziness and giddiness; R51.9 Headache, unspecified; F43.10 Post-traumatic stress disorder, unspecified; J44.9 Chronic obstructive pulmonary disease, unspecified; K21.9 Gastro-esophageal reflux disease without esophagitis; Z88.1 Allergy status to other antibiotic agents; Z79.899 Other long term (current) drug therapy; Z79.4 Long term (current) use of insulin; Z87.891 Personal history of nicotine dependence
CPT/HCPCS: 36415; 70450; 71046; 74177; 80053; 80400; 81003; 82533; 82947; 83690; 83735; 83880; 84439; 84443; 85025; 93005; 93010; 93306; 96361; 96372; 96374-59; 96375; 96376; 99285-25; A9270; G0378; J0834; J1650; J1885; J2405; J7030; Q9967

== ENCOUNTER → 2022-10-08 | Outpatient (CLI) | payer MEDICARE, OTHER ==
[~2022-10-08] MED LIST changes: +BASAGLAR K100 UNIT/8 SC; +HYDURE500 PO; +LOSA25 PO; +MONT10T PO; +NALOXONE HCL4 MG; +NICO2 PO; +Ondansetron Odt8 MG SL; +ROXICODONE15 MG PO; +Sprycel20 MG PO
[2022-10-08 18:22] LABS: Hematocrit 41.1 % (37.0-53.0); Hemoglobin 13.7 g/dL (13.5-17.5); Mean Corpuscular HGB 30.6 pg (26.0-34.0); Mean Corpuscular HGB Conc 33.3 g/dL (31.5-36.5); Mean Corpuscular Volume 92 fL (80-100); Mean Platelet Volume 12.8 fL (9.1-12.4); NRBC ABSOLUTE 0.04 K/mm3 (0.00-0.02); NRBC Auto 0.1 /100 WBC (0.0-0.2); Platelet Count 173 K/mm3 (150-400); RDW Coefficient Variation 15.1 % (11.7-14.2); RDW Standard Deviation 50.5 fL (35.1-46.3); Red Blood Cell Count 4.48 M/mm3 (4.30-5.90)
[2022-10-08 18:53] LABS: BAND PERCENT MAN 14 % (0-8); BASOPHILS ABSOLUTE MAN 0.91 K/mm3 (0.00-0.23); BASOPHILS PERCENT MAN 2 % (0-2); EOSINOPHILS ABSOLUTE MAN 0.45 K/mm3 (0.00-0.68); EOSINOPHILS PERCENT MAN 1 % (0-6); LYMPHOCYTES ABSOLUTE MAN 1.83 K/mm3 (0.84-5.20); LYMPHOCYTES PERCENT MAN 4 % (21-46); METAMYELOCYTE ABSOLUTE MAN 1.83 K/mm3 (0.00-0.00); METAMYELOCYTE PERCENT MAN 4 % (0-0); MONOCYTES ABSOLUTE MAN 4.58 K/mm3 (0.16-1.47); MONOCYTES PERCENT MAN 10 % (4-13); MYELOCYTE ABSOLUTE MAN 2.74 K/mm3 (0.00-0.00); MYELOCYTE PERCENT MAN 6 % (0-0); NEUTROPHILS ABSOLUTE MAN 33.43 K/mm3 (1.96-9.15); SEG NEUTROPHILS PERCENT MAN 59 % (41-73); TOTAL CELLS COUNTED 100
== END | disposition home or self-care (01) ==
LOC: LAB 17:25 → LAB SHORT 17:25
PROVIDERS: Internal Medicine Hematology & Oncology
DX: C92.10 Chronic myeloid leukemia, BCR/ABL-positive, not having achieved remission (principal)
CPT/HCPCS: 85025

== ENCOUNTER 2022-10-20 04:49 | Emergency (ER) | payer MEDICARE, OTHER ==
[~2022-10-20] VITALS: Ht 188 cm; Wt 161.0 kg
[2022-10-20] MEDS ORDERED: Hydroxyurea500 MG PO (05:05)
[2022-10-20] MEDS ORDERED: ALLO300 PO (05:05)
[2022-10-20] MEDS ORDERED: Gleevec400 MG PO (05:06)
[2022-10-20 06:10] LABS: Source, Urine Clean Catch
[2022-10-20 06:15] LABS: Bilirubin, Urine Neg (Neg); Blood, Urine Neg (Neg); Glucose Qualitative, Urine 2+ (Neg); Ketones, Urine Neg (Neg); Leukocyte Esterase, Urine Neg (Neg); Nitrite, Urine Neg (Neg); Protein, Urine Neg (Neg); Specific Gravity, Urine 1.025 (1.003-1.022); Urobilinogen, Urine NORM (Normal)
[2022-10-20 06:16] LABS: BASOPHILS ABSOLUTE AUTO 0.23 K/mm3 (0.00-0.23); BASOPHILS PERCENT AUTO 2 % (0-2); EOSINOPHILS PERCENT AUTO 3 % (0-6); Hematocrit 33.9 % (37.0-53.0); Hemoglobin 11.9 g/dL (13.5-17.5); IMMATURE GRAN ABSOLUTE AUTO 0.61 K/mm3 (0.00-0.10); IMMATURE GRAN PERCENT AUTO 4 % (0-1); LYMPHOCYTES ABSOLUTE AUTO 3.01 K/mm3 (0.84-5.20); LYMPHOCYTES PERCENT AUTO 22 % (21-46); MONOCYTES ABSOLUTE AUTO 0.68 K/mm3 (0.16-1.47); MONOCYTES PERCENT AUTO 5 % (4-13); Mean Corpuscular HGB 31.7 pg (26.0-34.0); Mean Corpuscular HGB Conc 35.1 g/dL (31.5-36.5); Mean Corpuscular Volume 90 fL (80-100); Mean Platelet Volume 12.7 fL (9.1-12.4); NEUTROPHILS ABSOLUTE AUTO 8.85 K/mm3 (1.96-9.15); NEUTROPHILS PERCENT AUTO 64 % (41-73); NRBC ABSOLUTE 0.02 K/mm3 (0.00-0.02); NRBC Auto 0.1 /100 WBC (0.0-0.2); Platelet Count 247 K/mm3 (150-400); RDW Coefficient Variation 15.4 % (11.7-14.2); RDW Standard Deviation 49.2 fL (35.1-46.3); Red Blood Cell Count 3.75 M/mm3 (4.30-5.90); White Blood Cell Count 13.78 K/mm3 (4.00-11.30)
[2022-10-20 06:36] LABS: Albumin, Blood 3.5 g/dL (3.4-5.0); Albumin/Globulin Ratio 1.1 (0.8-1.8); Bilirubin, Total 0.4 mg/dL (0.1-1.0); Bun/Creatinine Ratio 20.3 (12.0-20.0); Calcium, Blood 8.5 mg/dL (8.5-10.1); Creatinine, Blood 0.84 mg/dL (0.60-1.20); Globulin, Blood 3.3 g/dL (2.2-4.0); Potassium, Blood 4.2 mmol/L (3.5-5.5); Total Protein, Blood 6.8 g/dL (6.4-8.2)
[2022-10-20 07:05] LABS: Appearance, Urine Clear (Clear); Color, Urine Yellow (P-Yellow)
== END 2022-10-20 09:41 | disposition home or self-care (01) ==
LOC: ER 04:49
PROVIDERS: Emergency Medicine
DX: E10.649 Type 1 diabetes mellitus with hypoglycemia without coma (principal); E10.40 Type 1 diabetes mellitus with diabetic neuropathy, unspecified; I10 Essential (primary) hypertension; K21.9 Gastro-esophageal reflux disease without esophagitis; E78.5 Hyperlipidemia, unspecified; J44.9 Chronic obstructive pulmonary disease, unspecified; F17.220 Nicotine dependence, chewing tobacco, uncomplicated; Z88.1 Allergy status to other antibiotic agents; Z79.899 Other long term (current) drug therapy
CPT/HCPCS: 80053; 81003; 82947; 85025; 96374; 99284-25; J1815; J2405

== ENCOUNTER 2022-10-26 09:17 | Emergency (ER) | payer MEDICARE, OTHER ==
[~2022-10-26] VITALS: Ht 188 cm; Wt 158.8 kg
[~2022-10-26 09:17] MED LIST changes: +ALLO300 PO; +Hydroxyurea500 MG PO
[2022-10-26 10:15] LABS: BASOPHILS ABSOLUTE AUTO 0.12 K/mm3 (0.00-0.23); BASOPHILS PERCENT AUTO 1 % (0-2); EOSINOPHILS ABSOLUTE AUTO 0.27 K/mm3 (0.00-0.68); EOSINOPHILS PERCENT AUTO 2 % (0-6); Hematocrit 36.8 % (37.0-53.0); Hemoglobin 12.5 g/dL (13.5-17.5); IMMATURE GRAN ABSOLUTE AUTO 0.08 K/mm3 (0.00-0.10); IMMATURE GRAN PERCENT AUTO 1 % (0-1); LYMPHOCYTES ABSOLUTE AUTO 2.39 K/mm3 (0.84-5.20); LYMPHOCYTES PERCENT AUTO 21 % (21-46); MONOCYTES ABSOLUTE AUTO 0.86 K/mm3 (0.16-1.47); MONOCYTES PERCENT AUTO 8 % (4-13); Mean Corpuscular HGB 31.3 pg (26.0-34.0); Mean Corpuscular Volume 92 fL (80-100); Mean Platelet Volume 12.1 fL (9.1-12.4); NEUTROPHILS ABSOLUTE AUTO 7.45 K/mm3 (1.96-9.15); NEUTROPHILS PERCENT AUTO 67 % (41-73); Platelet Count 283 K/mm3 (150-400); RDW Coefficient Variation 15.8 % (11.7-14.2); RDW Standard Deviation 52.7 fL (35.1-46.3); Red Blood Cell Count 3.99 M/mm3 (4.30-5.90); White Blood Cell Count 11.17 K/mm3 (4.00-11.30)
[2022-10-26 10:42] LABS: Albumin, Blood 3.9 g/dL (3.4-5.0); Albumin/Globulin Ratio 1.1 (0.8-1.8); Bilirubin, Total 0.4 mg/dL (0.1-1.0); Bun/Creatinine Ratio 16.3 (12.0-20.0); Calcium, Blood 8.9 mg/dL (8.5-10.1); Creatinine, Blood 0.92 mg/dL (0.60-1.20); Globulin, Blood 3.4 g/dL (2.2-4.0); Potassium, Blood 4.3 mmol/L (3.5-5.5); Total Protein, Blood 7.3 g/dL (6.4-8.2)
[2022-10-26 13:08] LABS: Source, Urine Clean Catch
[2022-10-26 13:22] LABS: Appearance, Urine Clear (Clear); Bilirubin, Urine Neg (Neg); Blood, Urine Neg (Neg); Color, Urine Yellow (P-Yellow); Glucose Qualitative, Urine Neg (Neg); Ketones, Urine Neg (Neg); Leukocyte Esterase, Urine 1+ (Neg); Nitrite, Urine Neg (Neg); Protein, Urine 1+ (Neg); Urobilinogen, Urine NORM (Normal)
[2022-10-26 13:39] LABS: Bacteria Rare /hpf; Red Blood Cells, Urine Not Seen /hpf (0-2); Squamous Epithelial Cells Few /hpf (Few)
== END 2022-10-26 15:55 | disposition home or self-care (01) ==
LOC: ER 09:17
PROVIDERS: Anesthesiology
DX: E10.65 Type 1 diabetes mellitus with hyperglycemia (principal); I10 Essential (primary) hypertension; R51.9 Headache, unspecified; R10.9 Unspecified abdominal pain; Z87.891 Personal history of nicotine dependence; Z88.1 Allergy status to other antibiotic agents; Z79.899 Other long term (current) drug therapy; Z79.4 Long term (current) use of insulin
CPT/HCPCS: 36415; 70450; 74177; 80053; 81001; 82947; 85025; 87086; 96360-59; 99285-25; A9270; J1200; J7120; Q9967

== ENCOUNTER 2022-11-15 15:41 | Emergency (ER) | payer MEDICARE, OTHER ==
[~2022-11-15] VITALS: Ht 188 cm; Wt 158.8 kg
[2022-11-15 17:52] LABS: BASOPHILS ABSOLUTE AUTO 0.35 K/mm3 (0.00-0.23); BASOPHILS PERCENT AUTO 2 % (0-2); EOSINOPHILS ABSOLUTE AUTO 0.11 K/mm3 (0.00-0.68); EOSINOPHILS PERCENT AUTO 1 % (0-6); Hematocrit 42.8 % (37.0-53.0); Hemoglobin 14.4 g/dL (13.5-17.5); IMMATURE GRAN ABSOLUTE AUTO 0.61 K/mm3 (0.00-0.10); IMMATURE GRAN PERCENT AUTO 4 % (0-1); LYMPHOCYTES ABSOLUTE AUTO 2.18 K/mm3 (0.84-5.20); LYMPHOCYTES PERCENT AUTO 15 % (21-46); MONOCYTES ABSOLUTE AUTO 1.04 K/mm3 (0.16-1.47); MONOCYTES PERCENT AUTO 7 % (4-13); Mean Corpuscular HGB 31.2 pg (26.0-34.0); Mean Corpuscular HGB Conc 33.6 g/dL (31.5-36.5); Mean Corpuscular Volume 93 fL (80-100); Mean Platelet Volume 12.4 fL (9.1-12.4); NEUTROPHILS ABSOLUTE AUTO 10.41 K/mm3 (1.96-9.15); NEUTROPHILS PERCENT AUTO 71 % (41-73); Platelet Count 312 K/mm3 (150-400); RDW Coefficient Variation 13.9 % (11.7-14.2); RDW Standard Deviation 47.5 fL (35.1-46.3); Red Blood Cell Count 4.61 M/mm3 (4.30-5.90)
[2022-11-15 18:12] LABS: Albumin, Blood 3.9 g/dL (3.4-5.0); Bilirubin, Total 0.5 mg/dL (0.1-1.0); Bun/Creatinine Ratio 18.1 (12.0-20.0); Calcium, Blood 9.3 mg/dL (8.5-10.1); Creatinine, Blood 0.94 mg/dL (0.60-1.20); Globulin, Blood 3.8 g/dL (2.2-4.0); Potassium, Blood 4.5 mmol/L (3.5-5.5); Total Protein, Blood 7.7 g/dL (6.4-8.2)
[2022-11-15 18:36] LABS: Source, Urine Clean Catch
[2022-11-15 19:04] LABS: Appearance, Urine Clear (Clear); Bilirubin, Urine Neg (Neg); Blood, Urine Neg (Neg); Color, Urine Yellow (P-Yellow); Glucose Qualitative, Urine Neg (Neg); Ketones, Urine Neg (Neg); Leukocyte Esterase, Urine Neg (Neg); Nitrite, Urine Neg (Neg); Protein, Urine Neg (Neg); Urobilinogen, Urine NORM (Normal)
== END 2022-11-15 20:42 | disposition home or self-care (01) ==
LOC: ER 15:41
PROVIDERS: Emergency Medicine; Physician Assistant
DX: R10.11 Right upper quadrant pain (principal); E10.9 Type 1 diabetes mellitus without complications; I10 Essential (primary) hypertension; J44.9 Chronic obstructive pulmonary disease, unspecified; Z79.899 Other long term (current) drug therapy; Z79.4 Long term (current) use of insulin; Z88.1 Allergy status to other antibiotic agents; Z87.891 Personal history of nicotine dependence
CPT/HCPCS: 36415; 74177; 80053; 81003; 82947; 83690; 85025; Q9967

== ENCOUNTER → 2022-11-23 | Outpatient (CLI) | payer MEDICARE, OTHER ==
[2022-11-23 20:17] LABS: U Amphetamine Screen Not Detected; U Barbituate Screen Not Detected; U Benzodiazapine Screen Not Detected; U Buprenorphine Screen DETECTED; U Cannabinoids Screen DETECTED; U Cocaine Screen Not Detected; U Methadone Screen Not Detected; U Methamphetamine Screen Not Detected; U Opiates Screen Not Detected; U Oxycodone Screen Not Detected; U Phencyclidine Screen Not Detected; U Propoxyphene Screen Not Detected
== END | disposition home or self-care (01) ==
LOC: LAB SHORT 16:05 → LAB 16:05
PROVIDERS: Internal Medicine Hematology & Oncology
DX: Z51.81 Encounter for therapeutic drug level monitoring (principal); Z79.899 Other long term (current) drug therapy

== ENCOUNTER → 2022-12-07 | Outpatient (CLI) | payer MEDICARE, OTHER ==
[2022-12-07 19:42] LABS: U Amphetamine Screen Not Detected; U Barbituate Screen Not Detected; U Benzodiazapine Screen Not Detected; U Buprenorphine Screen Not Detected; U Cannabinoids Screen DETECTED; U Cocaine Screen Not Detected; U Methadone Screen Not Detected; U Methamphetamine Screen Not Detected; U Opiates Screen DETECTED; U Oxycodone Screen Not Detected; U Phencyclidine Screen Not Detected; U Propoxyphene Screen Not Detected
== END | disposition home or self-care (01) ==
LOC: LAB SHORT 14:51 → LAB 14:51
PROVIDERS: Internal Medicine Hematology & Oncology
DX: Z51.81 Encounter for therapeutic drug level monitoring (principal); Z79.899 Other long term (current) drug therapy

== ENCOUNTER → 2022-12-30 | Outpatient (CLI) | payer MEDICARE, OTHER ==
[2022-12-30 18:46] LABS: U Amphetamine Screen Not Detected; U Barbituate Screen Not Detected; U Benzodiazapine Screen Not Detected; U Buprenorphine Screen Not Detected; U Cannabinoids Screen DETECTED; U Cocaine Screen Not Detected; U Methadone Screen Not Detected; U Methamphetamine Screen Not Detected; U Opiates Screen Not Detected; U Oxycodone Screen DETECTED; U Phencyclidine Screen Not Detected; U Propoxyphene Screen Not Detected
== END | disposition home or self-care (01) ==
LOC: LAB 18:27 → LAB SHORT 18:27
PROVIDERS: Internal Medicine Hematology & Oncology
DX: Z51.81 Encounter for therapeutic drug level monitoring (principal); Z79.899 Other long term (current) drug therapy

== ENCOUNTER → 2023-01-11 | Outpatient (CLI) | payer MEDICARE, OTHER ==
[2023-01-11 18:13] LABS: U Amphetamine Screen Not Detected; U Barbituate Screen Not Detected; U Benzodiazapine Screen Not Detected; U Buprenorphine Screen Not Detected; U Cannabinoids Screen DETECTED; U Cocaine Screen Not Detected; U Methadone Screen Not Detected; U Methamphetamine Screen Not Detected; U Opiates Screen Not Detected; U Oxycodone Screen DETECTED; U Phencyclidine Screen Not Detected; U Propoxyphene Screen Not Detected
[2023-01-16 15:07] LABS: CARBOXY-THC 243 (.)
== END | disposition home or self-care (01) ==
LOC: LAB 16:51 → LAB SHORT 16:51
PROVIDERS: Internal Medicine Hematology & Oncology
DX: Z51.81 Encounter for therapeutic drug level monitoring (principal); Z79.899 Other long term (current) drug therapy
CPT/HCPCS: G0480

== ENCOUNTER → 2023-02-14 | Outpatient (CLI) | payer MEDICARE, OTHER ==
[2023-02-14 19:30] LABS: U Amphetamine Screen DETECTED; U Buprenorphine Screen Not Detected; U Cannabinoids Screen DETECTED; U Opiates Screen DETECTED; U Oxycodone Screen DETECTED; U Propoxyphene Screen Not Detected
[2023-02-14 19:31] LABS: U Barbituate Screen Not Detected; U Benzodiazapine Screen Not Detected; U Cocaine Screen Not Detected; U Methadone Screen Not Detected; U Methamphetamine Screen Not Detected; U Phencyclidine Screen Not Detected
[2023-02-19 09:10] LABS: CARBOXY-THC >137 (.)
== END | disposition home or self-care (01) ==
LOC: LAB 18:39 → LAB SHORT 18:39
PROVIDERS: Internal Medicine Hematology & Oncology
DX: Z51.81 Encounter for therapeutic drug level monitoring (principal); Z79.899 Other long term (current) drug therapy
CPT/HCPCS: G0480

== ENCOUNTER → 2023-02-15 | Outpatient (CLI) | payer MEDICARE, OTHER ==
[2023-02-24 12:09] LABS: B2A2 TRANSCRIPT Comment: % (.)
== END ==
LOC: LAB 11:16 → LAB SHORT 11:16
PROVIDERS: Internal Medicine Hematology & Oncology
DX: C92.10 Chronic myeloid leukemia, BCR/ABL-positive, not having achieved remission (principal)
CPT/HCPCS: 81206; 81207

== ENCOUNTER → 2023-02-28 | Outpatient (CLI) | payer MEDICARE, OTHER ==
[2023-02-28 20:11] LABS: U Amphetamine Screen DETECTED; U Barbituate Screen Not Detected; U Benzodiazapine Screen Not Detected; U Buprenorphine Screen Not Detected; U Cocaine Screen Not Detected; U Methadone Screen Not Detected; U Methamphetamine Screen Not Detected; U Opiates Screen DETECTED; U Oxycodone Screen DETECTED; U Phencyclidine Screen Not Detected; U Propoxyphene Screen Not Detected
[2023-02-28 20:12] LABS: U Cannabinoids Screen DETECTED
[2023-03-06 11:08] LABS: CARBOXY-THC 129 (.)
== END | disposition home or self-care (01) ==
LOC: LAB 19:22 → LAB SHORT 19:22
PROVIDERS: Internal Medicine Hematology & Oncology
DX: Z51.81 Encounter for therapeutic drug level monitoring (principal); Z79.899 Other long term (current) drug therapy
CPT/HCPCS: G0480

== ENCOUNTER → 2023-03-14 | Outpatient (CLI) | payer MEDICARE, OTHER ==
[2023-03-14 14:58] LABS: U Amphetamine Screen Not Detected; U Barbituate Screen Not Detected; U Benzodiazapine Screen Not Detected; U Buprenorphine Screen Not Detected; U Cannabinoids Screen DETECTED; U Cocaine Screen Not Detected; U Methadone Screen Not Detected; U Methamphetamine Screen Not Detected; U Opiates Screen DETECTED; U Oxycodone Screen DETECTED; U Phencyclidine Screen Not Detected; U Propoxyphene Screen Not Detected
[2023-03-17 16:09] LABS: CARBOXY-THC 358 (.)
== END | disposition home or self-care (01) ==
LOC: LAB 13:42 → LAB SHORT 13:42
PROVIDERS: Internal Medicine Hematology & Oncology
DX: Z51.81 Encounter for therapeutic drug level monitoring (principal); Z79.899 Other long term (current) drug therapy
CPT/HCPCS: G0480

== ENCOUNTER 2023-04-30 17:32 | Emergency (ER) | payer MEDICARE, OTHER ==
[~2023-04-30] VITALS: Ht 188 cm; Wt 99.8 kg
[2023-04-30 18:02] LABS: BASOPHILS ABSOLUTE AUTO 0.06 K/mm3 (0.00-0.23); BASOPHILS PERCENT AUTO 1 % (0-2); EOSINOPHILS ABSOLUTE AUTO 0.07 K/mm3 (0.00-0.68); EOSINOPHILS PERCENT AUTO 1 % (0-6); Hematocrit 43.9 % (37.0-53.0); Hemoglobin 14.7 g/dL (13.5-17.5); IMMATURE GRAN ABSOLUTE AUTO 0.04 K/mm3 (0.00-0.10); IMMATURE GRAN PERCENT AUTO 0 % (0-1); LYMPHOCYTES ABSOLUTE AUTO 1.74 K/mm3 (0.84-5.20); LYMPHOCYTES PERCENT AUTO 15 % (21-46); MONOCYTES ABSOLUTE AUTO 0.66 K/mm3 (0.16-1.47); MONOCYTES PERCENT AUTO 6 % (4-13); Mean Corpuscular HGB 29.3 pg (26.0-34.0); Mean Corpuscular HGB Conc 33.5 g/dL (31.5-36.5); Mean Corpuscular Volume 88 fL (80-100); Mean Platelet Volume 12.5 fL (9.1-12.4); NEUTROPHILS ABSOLUTE AUTO 9.44 K/mm3 (1.96-9.15); NEUTROPHILS PERCENT AUTO 79 % (41-73); Platelet Count 314 K/mm3 (150-400); RDW Standard Deviation 41.8 fL (35.1-46.3); Red Blood Cell Count 5.01 M/mm3 (4.30-5.90); White Blood Cell Count 12.01 K/mm3 (4.00-11.30)
[2023-04-30 18:46] LABS: Alanine Aminotransfer (ALT/SGP 47 U/L (12-78); Albumin, Blood 3.9 g/dL (3.4-5.0); Albumin/Globulin Ratio 1.1 (0.8-1.8); Alk Phos 122 U/L (50-136); Anion Gap 2 mmol/L (6-16); Aspartate Aminotrans (AST/SGOT 31 U/L (12-37); Bilirubin, Total 0.3 mg/dL (0.1-1.0); Blood Urea Nitrogen 10 mg/dL (8-24); Bun/Creatinine Ratio 11.9 (12.0-20.0); C-REACTIVE PROTEIN, EXT RANGE <0.290 mg/dL (0.000-0.300); CO2, Blood 27 mmol/L (21-32); Calcium, Blood 9.1 mg/dL (8.5-10.1); Chloride, Blood 109 mmol/L (98-108); Creatinine, Blood 0.84 mg/dL (0.60-1.20); Globulin, Blood 3.5 g/dL (2.2-4.0); Glomerular Filtration Rate 115 (60-); Glucose, Blood 127 mg/dL (70-99); Potassium, Blood 3.7 mmol/L (3.5-5.5); Sodium, Blood 138 mmol/L (136-145); Total Protein, Blood 7.4 g/dL (6.4-8.2)
[2023-04-30] MEDS ORDERED: ZANAFLEX413 PO (18:58)
[2023-04-30 21:02] VITALS: BP 145/99
== END 2023-04-30 21:00 | disposition home or self-care (01) ==
LOC: ER 17:32
PROVIDERS: Physician Assistant
DX: M54.50 Low back pain, unspecified (principal); M79.671 Pain in right foot; G89.29 Other chronic pain; C92.10 Chronic myeloid leukemia, BCR/ABL-positive, not having achieved remission; E10.9 Type 1 diabetes mellitus without complications; I10 Essential (primary) hypertension; J44.9 Chronic obstructive pulmonary disease, unspecified; K21.9 Gastro-esophageal reflux disease without esophagitis; Z79.899 Other long term (current) drug therapy; Z79.4 Long term (current) use of insulin; Z88.1 Allergy status to other antibiotic agents; Z87.891 Personal history of nicotine dependence
CPT/HCPCS: 71046; 72100; 80053; 85025; 86140; 99285-25

== ENCOUNTER 2023-05-10 21:25 | Emergency (ER) | payer MEDICARE, OTHER ==
[~2023-05-10] VITALS: Ht 188 cm; Wt 145.2 kg
[~2023-05-10 21:25] MED LIST changes: +ZANAFLEX413 PO
[2023-05-10 22:07] LABS: BASOPHILS ABSOLUTE AUTO 0.07 K/mm3 (0.00-0.23); BASOPHILS PERCENT AUTO 0 % (0-2); EOSINOPHILS ABSOLUTE AUTO 0.08 K/mm3 (0.00-0.68); EOSINOPHILS PERCENT AUTO 0 % (0-6); Hematocrit 44.4 % (37.0-53.0); Hemoglobin 15.1 g/dL (13.5-17.5); IMMATURE GRAN ABSOLUTE AUTO 0.13 K/mm3 (0.00-0.10); IMMATURE GRAN PERCENT AUTO 1 % (0-1); LYMPHOCYTES ABSOLUTE AUTO 1.93 K/mm3 (0.84-5.20); LYMPHOCYTES PERCENT AUTO 10 % (21-46); MONOCYTES ABSOLUTE AUTO 1.17 K/mm3 (0.16-1.47); MONOCYTES PERCENT AUTO 6 % (4-13); Mean Corpuscular HGB 29.8 pg (26.0-34.0); Mean Corpuscular Volume 88 fL (80-100); Mean Platelet Volume 12.9 fL (9.1-12.4); NEUTROPHILS PERCENT AUTO 83 % (41-73); Platelet Count 322 K/mm3 (150-400); RDW Coefficient Variation 12.7 % (11.7-14.2); RDW Standard Deviation 40.7 fL (35.1-46.3); Red Blood Cell Count 5.07 M/mm3 (4.30-5.90); White Blood Cell Count 20.18 K/mm3 (4.00-11.30)
[2023-05-10 22:33] LABS: Albumin/Globulin Ratio 1.1 (0.8-1.8); Bilirubin, Total 0.4 mg/dL (0.1-1.0); Bun/Creatinine Ratio 15.1 (12.0-20.0); Creatinine, Blood 0.86 mg/dL (0.60-1.20); Globulin, Blood 3.5 g/dL (2.2-4.0); Potassium, Blood 3.9 mmol/L (3.5-5.5); Total Protein, Blood 7.5 g/dL (6.4-8.2)
[2023-05-11 01:45] VITALS: BP 134/118
== END 2023-05-11 00:34 | disposition home or self-care (01) ==
LOC: ER 21:25
PROVIDERS: Physician Assistant
DX: R07.89 Other chest pain (principal); E10.40 Type 1 diabetes mellitus with diabetic neuropathy, unspecified; I10 Essential (primary) hypertension; J44.9 Chronic obstructive pulmonary disease, unspecified; E78.5 Hyperlipidemia, unspecified; C92.10 Chronic myeloid leukemia, BCR/ABL-positive, not having achieved remission; Z88.1 Allergy status to other antibiotic agents; Z79.899 Other long term (current) drug therapy; Z87.891 Personal history of nicotine dependence
CPT/HCPCS: 71046; 80053; 82947; 84484; 85025; 93005; 93010; 99285-25

== ENCOUNTER 2023-08-28 14:56 | Emergency (ER) | payer MEDICARE, OTHER ==
[~2023-08-28] VITALS: Ht 188 cm; Wt 149.7 kg
[2023-08-28 15:22] LABS: Hematocrit 40.2 % (37.0-53.0); Hemoglobin 13.5 g/dL (13.5-17.5); Mean Corpuscular HGB 29.7 pg (26.0-34.0); Mean Corpuscular HGB Conc 33.6 g/dL (31.5-36.5); Mean Corpuscular Volume 89 fL (80-100); Mean Platelet Volume 11.4 fL (9.1-12.4); NRBC ABSOLUTE 0.19 K/mm3 (0.00-0.02); NRBC Auto 0.2 /100 WBC (0.0-0.2); Platelet Count 247 K/mm3 (150-400); RDW Standard Deviation 47.8 fL (35.1-46.3); Red Blood Cell Count 4.54 M/mm3 (4.30-5.90)
[2023-08-28 15:27] LABS: White Blood Cell Count 88.84 K/mm3 (4.00-11.30)
[2023-08-28 15:42] LABS: Albumin, Blood 3.5 g/dL (3.4-5.0); Bilirubin, Total 0.3 mg/dL (0.1-1.0); Calcium, Blood 9.1 mg/dL (8.5-10.1); Creatinine, Blood 0.72 mg/dL (0.60-1.20); Globulin, Blood 3.5 g/dL (2.2-4.0); Potassium, Blood 4.1 mmol/L (3.5-5.5)
[2023-08-28 15:44] LABS: BAND PERCENT MAN 16 % (0-8); BASOPHILS ABSOLUTE MAN 1.77 K/mm3 (0.00-0.23); BASOPHILS PERCENT MAN 2 % (0-2); BLASTS PERCENT MAN 2 % (0-0); EOSINOPHILS PERCENT MAN 0 % (0-6); LYMPHOCYTES ABSOLUTE MAN 4.44 K/mm3 (0.84-5.20); LYMPHOCYTES PERCENT MAN 5 % (21-46); METAMYELOCYTE PERCENT MAN 17 % (0-0); MONOCYTES ABSOLUTE MAN 3.55 K/mm3 (0.16-1.47); MONOCYTES PERCENT MAN 4 % (4-13); MYELOCYTE ABSOLUTE MAN 7.99 K/mm3 (0.00-0.00); MYELOCYTE PERCENT MAN 9 % (0-0); NEUTROPHILS ABSOLUTE MAN 54.19 K/mm3 (1.96-9.15); SEG NEUTROPHILS PERCENT MAN 45 % (41-73); TOTAL CELLS COUNTED 100
[2023-08-28] MEDS ORDERED: BASAGLAR K100 UNIT/1 SC (15:51)
[2023-08-28] MEDS ORDERED: LOPE2C PO (17:45)
[2023-08-28] MEDS ORDERED: TRAM50 PO (17:45)
[2023-08-28] MEDS ORDERED: CATAPRES0.1 MG PO (17:45)
[2023-08-28 17:47] VITALS: BP 142/84
== END 2023-08-28 17:53 | disposition home or self-care (01) ==
LOC: ER 14:56
PROVIDERS: Student in an Organized Health Care Education/Training Program
DX: C92.10 Chronic myeloid leukemia, BCR/ABL-positive, not having achieved remission (principal); F11.23 Opioid dependence with withdrawal; I10 Essential (primary) hypertension; E10.40 Type 1 diabetes mellitus with diabetic neuropathy, unspecified; K21.9 Gastro-esophageal reflux disease without esophagitis; E78.5 Hyperlipidemia, unspecified; J44.9 Chronic obstructive pulmonary disease, unspecified; Z87.891 Personal history of nicotine dependence; F43.10 Post-traumatic stress disorder, unspecified; Z79.899 Other long term (current) drug therapy; Z88.1 Allergy status to other antibiotic agents
CPT/HCPCS: 71046; 80053; 83690; 84484; 85025; 93005; 93010; 96374; 96375; 99285-25; J1170; J1885; J2405

== ENCOUNTER 2024-02-02 02:18 | Emergency (ER) | payer MEDICARE, OTHER ==
[~2024-02-02] VITALS: Ht 188 cm; Wt 145.2 kg
[~2024-02-02 02:18] MED LIST changes: +AMPDEX10 PO; +BASAGLAR K100 UNIT/1 SC; +BUPRENORPHIN-N1 EAC1 SL; +CATAPRES0.1 MG PO; +LOPE2C PO; +OXYC10ER PO; +OXYC40ER PO
[2024-02-02 02:34] VITALS: BP 126/90
== END 2024-02-02 03:20 | disposition left against medical advice (07) ==
LOC: ER 02:18
DX: Z53.21 Procedure and treatment not carried out due to patient leaving prior to being seen by health care provider (principal)
CPT/HCPCS: 82947

== ENCOUNTER 2024-02-26 13:17 | Emergency (ER) | payer MEDICARE, OTHER ==
[~2024-02-26] VITALS: Ht 188 cm; Wt 145.2 kg
[2024-02-26 13:28] VITALS: BP 184/99
[2024-02-26 13:53] LABS: BASOPHILS ABSOLUTE AUTO 0.11 K/mm3 (0.00-0.23); BASOPHILS PERCENT AUTO 1 % (0-2); EOSINOPHILS ABSOLUTE AUTO 0.07 K/mm3 (0.00-0.68); EOSINOPHILS PERCENT AUTO 1 % (0-6); Hematocrit 45.6 % (37.0-53.0); Hemoglobin 15.5 g/dL (13.5-17.5); IMMATURE GRAN ABSOLUTE AUTO 0.12 K/mm3 (0.00-0.10); IMMATURE GRAN PERCENT AUTO 1 % (0-1); LYMPHOCYTES PERCENT AUTO 18 % (21-46); MONOCYTES ABSOLUTE AUTO 0.62 K/mm3 (0.16-1.47); MONOCYTES PERCENT AUTO 6 % (4-13); Mean Corpuscular HGB 29.5 pg (26.0-34.0); Mean Corpuscular Volume 87 fL (80-100); Mean Platelet Volume 12.8 fL (9.1-12.4); NEUTROPHILS ABSOLUTE AUTO 8.27 K/mm3 (1.96-9.15); NEUTROPHILS PERCENT AUTO 74 % (41-73); Platelet Count 236 K/mm3 (150-400); RDW Coefficient Variation 14.1 % (11.7-14.2); RDW Standard Deviation 44.3 fL (35.1-46.3); Red Blood Cell Count 5.25 M/mm3 (4.30-5.90); White Blood Cell Count 11.19 K/mm3 (4.00-11.30)
== END 2024-02-26 14:54 | disposition home or self-care (01) ==
LOC: ER 13:17
PROVIDERS: Physician Assistant
DX: E10.40 Type 1 diabetes mellitus with diabetic neuropathy, unspecified (principal); I10 Essential (primary) hypertension; J44.9 Chronic obstructive pulmonary disease, unspecified; Z76.0 Encounter for issue of repeat prescription; F43.10 Post-traumatic stress disorder, unspecified; E78.5 Hyperlipidemia, unspecified; Z87.891 Personal history of nicotine dependence; Z79.4 Long term (current) use of insulin; Z79.899 Other long term (current) drug therapy; Z88.1 Allergy status to other antibiotic agents
CPT/HCPCS: 85025; 99282

== ENCOUNTER 2024-03-02 18:59 | Emergency (ER) | payer MEDICARE, OTHER ==
[~2024-03-02] VITALS: Ht 188 cm; Wt 145.2 kg
[2024-03-02 21:49] LABS: BASOPHILS ABSOLUTE AUTO 0.16 K/mm3 (0.00-0.23); BASOPHILS PERCENT AUTO 1 % (0-2); EOSINOPHILS ABSOLUTE AUTO 0.06 K/mm3 (0.00-0.68); EOSINOPHILS PERCENT AUTO 0 % (0-6); Hemoglobin 14.7 g/dL (13.5-17.5); IMMATURE GRAN ABSOLUTE AUTO 0.18 K/mm3 (0.00-0.10); IMMATURE GRAN PERCENT AUTO 1 % (0-1); LYMPHOCYTES ABSOLUTE AUTO 2.19 K/mm3 (0.84-5.20); LYMPHOCYTES PERCENT AUTO 16 % (21-46); MONOCYTES ABSOLUTE AUTO 0.69 K/mm3 (0.16-1.47); MONOCYTES PERCENT AUTO 5 % (4-13); Mean Corpuscular HGB 29.5 pg (26.0-34.0); Mean Corpuscular HGB Conc 34.2 g/dL (31.5-36.5); Mean Corpuscular Volume 86 fL (80-100); Mean Platelet Volume 12.6 fL (9.1-12.4); NEUTROPHILS ABSOLUTE AUTO 10.37 K/mm3 (1.96-9.15); NEUTROPHILS PERCENT AUTO 76 % (41-73); Platelet Count 266 K/mm3 (150-400); RDW Standard Deviation 44.2 fL (35.1-46.3); Red Blood Cell Count 4.98 M/mm3 (4.30-5.90); White Blood Cell Count 13.65 K/mm3 (4.00-11.30)
[2024-03-02 21:59] LABS: Albumin, Blood 3.9 g/dL (3.4-5.0); Albumin/Globulin Ratio 1.1 (0.8-1.8); Bilirubin, Total 0.6 mg/dL (0.1-1.0); Bun/Creatinine Ratio 8.9 (12.0-20.0); Calcium, Blood 8.7 mg/dL (8.5-10.1); Creatinine, Blood 0.9 mg/dL (0.60-1.20); Globulin, Blood 3.4 g/dL (2.2-4.0); Potassium, Blood 3.9 mmol/L (3.5-5.5); Total Protein, Blood 7.3 g/dL (6.4-8.2)
[2024-03-02] MEDS ORDERED: Ciprofloxacin 500 MG Tab PO ONE (22:10)
[2024-03-02] MEDS ORDERED: Cipro500 MG PO (22:17)
[2024-03-02 22:38] VITALS: BP 169/96
== END 2024-03-03 00:06 | disposition home or self-care (01) ==
LOC: ER 18:59
PROVIDERS: Emergency Medicine
DX: H60.92 Unspecified otitis externa, left ear (principal); Z88.1 Allergy status to other antibiotic agents; Z79.899 Other long term (current) drug therapy; Z79.4 Long term (current) use of insulin; E10.40 Type 1 diabetes mellitus with diabetic neuropathy, unspecified; I10 Essential (primary) hypertension; K21.9 Gastro-esophageal reflux disease without esophagitis; J44.9 Chronic obstructive pulmonary disease, unspecified; E78.5 Hyperlipidemia, unspecified; Z87.891 Personal history of nicotine dependence
CPT/HCPCS: 70450; 80053; 85025; 99284-25; A9270

== ENCOUNTER 2024-03-31 07:06 | Emergency (ER) | payer MEDICARE, OTHER ==
[~2024-03-31] VITALS: Ht 188 cm; Wt 147.4 kg
[~2024-03-31 07:06] MED LIST changes: +Cipro500 MG PO
[2024-03-31 07:20] VITALS: BP 158/98
[2024-03-31] MEDS ORDERED: Methadone HCL 10 MG TAB PO ONE (07:45)
== END 2024-03-31 07:56 | disposition home or self-care (01) ==
LOC: ER 07:06
DX: Z76.0 Encounter for issue of repeat prescription (principal); F11.91 Opioid use, unspecified, in remission; F43.10 Post-traumatic stress disorder, unspecified; E10.40 Type 1 diabetes mellitus with diabetic neuropathy, unspecified; K21.9 Gastro-esophageal reflux disease without esophagitis; J44.9 Chronic obstructive pulmonary disease, unspecified; I10 Essential (primary) hypertension; Z87.891 Personal history of nicotine dependence
CPT/HCPCS: 99281; A9270

== ENCOUNTER 2024-04-01 08:46 | Emergency (ER) | payer MEDICARE, OTHER ==
[~2024-04-01] VITALS: Ht 180.3 cm; Wt 79.4 kg
[2024-04-01 08:55] VITALS: BP 142/93
[2024-04-01] MEDS ORDERED: Methadone HCL 10 MG TAB PO ONE (09:00)
== END 2024-04-01 09:08 | disposition home or self-care (01) ==
LOC: ER 08:46
DX: Z76.0 Encounter for issue of repeat prescription (principal); Z87.891 Personal history of nicotine dependence; F43.10 Post-traumatic stress disorder, unspecified; E10.40 Type 1 diabetes mellitus with diabetic neuropathy, unspecified; K21.9 Gastro-esophageal reflux disease without esophagitis; E78.5 Hyperlipidemia, unspecified; J44.9 Chronic obstructive pulmonary disease, unspecified; Z79.4 Long term (current) use of insulin; Z79.899 Other long term (current) drug therapy; Z88.1 Allergy status to other antibiotic agents; Z88.8 Allergy status to other drugs, medicaments and biological substances
CPT/HCPCS: 99281; A9270

== ENCOUNTER 2024-04-25 18:10 | Emergency (ER) | payer MEDICARE, OTHER ==
[~2024-04-25] VITALS: Ht 188 cm; Wt 147.4 kg
[2024-04-25 19:04] LABS: BASOPHILS ABSOLUTE AUTO 0.05 K/mm3 (0.00-0.23); BASOPHILS PERCENT AUTO 1 % (0-2); EOSINOPHILS PERCENT AUTO 1 % (0-6); Hematocrit 39.9 % (37.0-53.0); Hemoglobin 13.3 g/dL (13.5-17.5); IMMATURE GRAN ABSOLUTE AUTO 0.05 K/mm3 (0.00-0.10); IMMATURE GRAN PERCENT AUTO 1 % (0-1); LYMPHOCYTES ABSOLUTE AUTO 1.51 K/mm3 (0.84-5.20); LYMPHOCYTES PERCENT AUTO 14 % (21-46); MONOCYTES ABSOLUTE AUTO 0.61 K/mm3 (0.16-1.47); MONOCYTES PERCENT AUTO 6 % (4-13); Mean Corpuscular HGB 30.4 pg (26.0-34.0); Mean Corpuscular HGB Conc 33.3 g/dL (31.5-36.5); Mean Corpuscular Volume 91 fL (80-100); Mean Platelet Volume 12.5 fL (9.1-12.4); NEUTROPHILS ABSOLUTE AUTO 8.44 K/mm3 (1.96-9.15); NEUTROPHILS PERCENT AUTO 78 % (41-73); Platelet Count 182 K/mm3 (150-400); RDW Coefficient Variation 15.3 % (11.7-14.2); RDW Standard Deviation 50.7 fL (35.1-46.3); Red Blood Cell Count 4.37 M/mm3 (4.30-5.90); White Blood Cell Count 10.76 K/mm3 (4.00-11.30)
[2024-04-25 19:09] LABS: Albumin, Blood 3.8 g/dL (3.4-5.0); Albumin/Globulin Ratio 1.2 (0.8-1.8); Bilirubin, Total 0.5 mg/dL (0.1-1.0); Bun/Creatinine Ratio 15.6 (12.0-20.0); Calcium, Blood 8.5 mg/dL (8.5-10.1); Creatinine, Blood 0.96 mg/dL (0.60-1.20); Globulin, Blood 3.2 g/dL (2.2-4.0); Potassium, Blood 3.7 mmol/L (3.5-5.5)
[2024-04-25] MEDS ORDERED: Lactated Ringer's 1,000 ML IV ONE (19:40)
[2024-04-25] MEDS ORDERED: Dextrose 50% 50 ML Syringe IV ONE ×2 (19:40→22:50)
[2024-04-25] MEDS ORDERED: Dextrose 50% 50 ML Vial ONE (19:45)
[2024-04-25] MEDS ORDERED: Ondansetron HCl 2 MG / ML 2ML Vial IV ONE (22:20)
[2024-04-25 22:22] LABS: Source, Urine Clean Catch
[2024-04-25 22:22] LABS: Influenza A, PCR NEGATIVE (NEGATIVE); Influenza B, PCR NEGATIVE (NEGATIVE); Resp Syncytial Virus, PCR NEGATIVE (NEGATIVE); SARS-Cov-2 (COVID-19) PCR, MMC NEGATIVE (NEGATIVE)
[2024-04-25 22:38] LABS: Bilirubin, Urine Neg (Neg); Blood, Urine Neg (Neg); Glucose Qualitative, Urine 1+ (Neg); Ketones, Urine Neg (Neg); Leukocyte Esterase, Urine Neg (Neg); Nitrite, Urine Neg (Neg); Protein, Urine 1+ (Neg); Urobilinogen, Urine NORM (Normal)
[2024-04-25 22:56] LABS: Appearance, Urine Clear (Clear); Color, Urine Yellow (P-Yellow)
[2024-04-25] MEDS ORDERED: Dextrose 50% 50 ML Vial IV ONE (23:05)
[2024-04-26 01:12] VITALS: BP 155/79
== END 2024-04-26 01:32 | disposition home or self-care (01) ==
LOC: ER 18:10
PROVIDERS: Student in an Organized Health Care Education/Training Program
DX: E10.649 Type 1 diabetes mellitus with hypoglycemia without coma (principal); R07.9 Chest pain, unspecified; T50.3X5A Adverse effect of electrolytic, caloric and water-balance agents, initial encounter; F43.10 Post-traumatic stress disorder, unspecified; I10 Essential (primary) hypertension; K21.9 Gastro-esophageal reflux disease without esophagitis; E78.5 Hyperlipidemia, unspecified; Z87.891 Personal history of nicotine dependence; Z79.899 Other long term (current) drug therapy; Z79.4 Long term (current) use of insulin; Z88.1 Allergy status to other antibiotic agents; Z88.8 Allergy status to other drugs, medicaments and biological substances
CPT/HCPCS: 0241U; 71046; 80053; 82947; 83690; 84484; 85025; 93005; 93010; 96374; 96375; 99285-25; J2405; J7120; J7799

== ENCOUNTER 2024-05-23 14:08 | Emergency (ER) | payer MEDICARE, OTHER ==
[~2024-05-23] VITALS: Ht 190.5 cm; Wt 149.7 kg
[2024-05-23 14:45] LABS: BASOPHILS ABSOLUTE AUTO 0.03 K/mm3 (0.00-0.23); BASOPHILS PERCENT AUTO 0 % (0-2); EOSINOPHILS ABSOLUTE AUTO 0.05 K/mm3 (0.00-0.68); EOSINOPHILS PERCENT AUTO 1 % (0-6); Hematocrit 44.7 % (37.0-53.0); IMMATURE GRAN ABSOLUTE AUTO 0.03 K/mm3 (0.00-0.10); IMMATURE GRAN PERCENT AUTO 0 % (0-1); LYMPHOCYTES ABSOLUTE AUTO 1.76 K/mm3 (0.84-5.20); LYMPHOCYTES PERCENT AUTO 20 % (21-46); MONOCYTES ABSOLUTE AUTO 0.79 K/mm3 (0.16-1.47); MONOCYTES PERCENT AUTO 9 % (4-13); Mean Corpuscular HGB 29.9 pg (26.0-34.0); Mean Corpuscular HGB Conc 33.6 g/dL (31.5-36.5); Mean Corpuscular Volume 89 fL (80-100); Mean Platelet Volume 11.8 fL (9.1-12.4); NEUTROPHILS ABSOLUTE AUTO 6.12 K/mm3 (1.96-9.15); NEUTROPHILS PERCENT AUTO 70 % (41-73); Platelet Count 295 K/mm3 (150-400); RDW Coefficient Variation 13.1 % (11.7-14.2); RDW Standard Deviation 42.9 fL (35.1-46.3); Red Blood Cell Count 5.02 M/mm3 (4.30-5.90); White Blood Cell Count 8.78 K/mm3 (4.00-11.30)
[2024-05-23 15:19] LABS: Albumin, Blood 3.8 g/dL (3.4-5.0); Albumin/Globulin Ratio 1.1 (0.8-1.8); Bilirubin, Total 0.8 mg/dL (0.1-1.0); Bun/Creatinine Ratio 14.6 (12.0-20.0); Calcium, Blood 9.5 mg/dL (8.5-10.1); Creatinine, Blood 0.89 mg/dL (0.60-1.20); Globulin, Blood 3.6 g/dL (2.2-4.0); Potassium, Blood 3.7 mmol/L (3.5-5.5); Total Protein, Blood 7.4 g/dL (6.4-8.2)
[2024-05-23] MEDS ORDERED: CEPH500 PO (16:02)
[2024-05-23] MEDS ORDERED: Cephalexin Monohydrate 500 MG Cap PO ONE (16:05)
[2024-05-23 16:21] VITALS: BP 206/98
== END 2024-05-23 16:23 | disposition home or self-care (01) ==
LOC: ER 14:08
PROVIDERS: Physician Assistant
DX: L03.115 Cellulitis of right lower limb (principal); Z88.8 Allergy status to other drugs, medicaments and biological substances; Z88.1 Allergy status to other antibiotic agents; Z79.899 Other long term (current) drug therapy; Z79.4 Long term (current) use of insulin; F43.10 Post-traumatic stress disorder, unspecified; E10.9 Type 1 diabetes mellitus without complications; I10 Essential (primary) hypertension; K21.9 Gastro-esophageal reflux disease without esophagitis; E78.5 Hyperlipidemia, unspecified; Z87.891 Personal history of nicotine dependence
CPT/HCPCS: 80053; 82947; 85025; 99284; A9270

== ENCOUNTER 2024-06-04 13:26 | Emergency (ER) | payer MEDICARE, OTHER ==
[~2024-06-04] VITALS: Ht 188 cm; Wt 148.8 kg
[~2024-06-04 13:26] MED LIST changes: +CEPH500 PO
[2024-06-04 13:55] VITALS: BP 160/86
== END 2024-06-07 17:09 | disposition left against medical advice (07) ==
LOC: ER 13:26
DX: M79.661 Pain in right lower leg (principal); Z53.29 Procedure and treatment not carried out because of patient's decision for other reasons
CPT/HCPCS: 93971; 99282-25

== ENCOUNTER 2024-06-04 18:16 | Emergency (ER) | payer MEDICARE, OTHER ==
[~2024-06-04] VITALS: Ht 188 cm; Wt 120.0 kg
== END 2024-06-07 18:59 | disposition home or self-care (01) ==
LOC: ER 18:16
DX: M79.661 Pain in right lower leg (principal); E78.5 Hyperlipidemia, unspecified; F43.10 Post-traumatic stress disorder, unspecified; E10.40 Type 1 diabetes mellitus with diabetic neuropathy, unspecified; I10 Essential (primary) hypertension; K21.9 Gastro-esophageal reflux disease without esophagitis; Z89.511 Acquired absence of right leg below knee; Z87.891 Personal history of nicotine dependence; Z88.1 Allergy status to other antibiotic agents; Z88.8 Allergy status to other drugs, medicaments and biological substances; Z79.899 Other long term (current) drug therapy; Z79.4 Long term (current) use of insulin
CPT/HCPCS: 99282

== ENCOUNTER 2024-07-02 15:00 | Emergency (ER) | payer MEDICARE, OTHER ==
[~2024-07-02] VITALS: Ht 188 cm; Wt 142.9 kg
[2024-07-02 15:36] VITALS: BP 143/102
== END 2024-07-02 15:54 | disposition home or self-care (01) ==
LOC: ER 15:00
DX: Z76.0 Encounter for issue of repeat prescription (principal); Z87.891 Personal history of nicotine dependence; K21.9 Gastro-esophageal reflux disease without esophagitis; F43.10 Post-traumatic stress disorder, unspecified; E78.5 Hyperlipidemia, unspecified; I10 Essential (primary) hypertension; E10.40 Type 1 diabetes mellitus with diabetic neuropathy, unspecified; Z79.899 Other long term (current) drug therapy; Z88.1 Allergy status to other antibiotic agents; Z88.8 Allergy status to other drugs, medicaments and biological substances
CPT/HCPCS: 99281

== ENCOUNTER 2024-10-20 18:30 | Emergency (ER) | payer OTHER ==
[~2024-10-20] VITALS: Ht 188 cm; Wt 127.0 kg
[2024-10-20 19:18] LABS: Source, Urine Clean Catch
[2024-10-20 19:27] LABS: Bilirubin, Urine Neg (Neg); Blood, Urine Neg (Neg); Glucose Qualitative, Urine Neg (Neg); Ketones, Urine Neg (Neg); Leukocyte Esterase, Urine Neg (Neg); Nitrite, Urine Neg (Neg); Protein, Urine Neg (Neg); Urobilinogen, Urine NORM (Normal)
[2024-10-20 19:27] LABS: BASOPHILS ABSOLUTE AUTO 0.04 K/mm3 (0.00-0.23); BASOPHILS PERCENT AUTO 0 % (0-2); EOSINOPHILS ABSOLUTE AUTO 0.05 K/mm3 (0.00-0.68); EOSINOPHILS PERCENT AUTO 1 % (0-6); Hematocrit 38.7 % (37.0-53.0); Hemoglobin 13.1 g/dL (13.5-17.5); IMMATURE GRAN ABSOLUTE AUTO 0.04 K/mm3 (0.00-0.10); IMMATURE GRAN PERCENT AUTO 0 % (0-1); LYMPHOCYTES ABSOLUTE AUTO 1.33 K/mm3 (0.84-5.20); LYMPHOCYTES PERCENT AUTO 14 % (21-46); MONOCYTES ABSOLUTE AUTO 0.36 K/mm3 (0.16-1.47); MONOCYTES PERCENT AUTO 4 % (4-13); Mean Corpuscular HGB 30.3 pg (26.0-34.0); Mean Corpuscular HGB Conc 33.9 g/dL (31.5-36.5); Mean Corpuscular Volume 90 fL (80-100); Mean Platelet Volume 12.5 fL (9.1-12.4); NEUTROPHILS ABSOLUTE AUTO 7.76 K/mm3 (1.96-9.15); NEUTROPHILS PERCENT AUTO 81 % (41-73); Platelet Count 187 K/mm3 (150-400); RDW Coefficient Variation 14.2 % (11.7-14.2); RDW Standard Deviation 46.1 fL (35.1-46.3); Red Blood Cell Count 4.32 M/mm3 (4.30-5.90); White Blood Cell Count 9.58 K/mm3 (4.00-11.30)
[2024-10-20] MEDS ORDERED: Morphine Sulfate 4 MG/1 ML Injection IV ONE (19:40)
[2024-10-20] MEDS ORDERED: Ondansetron HCl 2 MG / ML 2ML Vial IV ONE (19:40)
[2024-10-20] MEDS ORDERED: Ketorolac Tromethamine 15mg Vial IV ONE (19:40)
[2024-10-20 19:46] LABS: Appearance, Urine Clear (Clear); Color, Urine Yellow (P-Yellow)
[2024-10-20 19:51] LABS: Albumin/Globulin Ratio 1.4 (0.8-1.8); Bilirubin, Total 0.8 mg/dL (0.1-1.0); Bun/Creatinine Ratio 15.6 (12.0-20.0); Calcium, Blood 9.1 mg/dL (8.5-10.1); Creatinine, Blood 0.77 mg/dL (0.60-1.20); Globulin, Blood 2.9 g/dL (2.2-4.0); Potassium, Blood 3.5 mmol/L (3.5-5.5); Total Protein, Blood 6.9 g/dL (6.4-8.2)
[2024-10-20] MEDS ORDERED: HYDROmorphone HCl/Pf 1MG SYR IV ONE ×2 (21:00→22:20)
[2024-10-21] VITALS: BP 146/78
== END 2024-10-21 00:03 | disposition other institution (70) ==
LOC: ER 18:30
PROVIDERS: Student in an Organized Health Care Education/Training Program
DX: R10.31 Right lower quadrant pain (principal); R07.9 Chest pain, unspecified; I10 Essential (primary) hypertension; J44.9 Chronic obstructive pulmonary disease, unspecified; F43.10 Post-traumatic stress disorder, unspecified; E11.40 Type 2 diabetes mellitus with diabetic neuropathy, unspecified; E78.5 Hyperlipidemia, unspecified; Z79.2 Long term (current) use of antibiotics; Z79.4 Long term (current) use of insulin; Z88.1 Allergy status to other antibiotic agents; Z88.8 Allergy status to other drugs, medicaments and biological substances
CPT/HCPCS: 71275; 74174; 80053; 81003; 83690; 84484; 85025; 87086; 93005; 93010; 96374-59; 96375-59; 96376-59; 99284-25; J1171; J1885; J2270; J2405; Q9967

== ENCOUNTER 2024-12-08 17:14 | Emergency (ER) | payer OTHER ==
[~2024-12-08] VITALS: Ht 188 cm; Wt 90.7 kg
[2024-12-08 18:33] LABS: Hematocrit 40.9 % (37.0-53.0); Hemoglobin 13.9 g/dL (13.5-17.5); Mean Corpuscular HGB 30.1 pg (26.0-34.0); Mean Corpuscular Volume 89 fL (80-100); Mean Platelet Volume 11.8 fL (9.1-12.4); Platelet Count 463 K/mm3 (150-400); RDW Coefficient Variation 12.7 % (11.7-14.2); RDW Standard Deviation 41.7 fL (35.1-46.3); Red Blood Cell Count 4.62 M/mm3 (4.30-5.90); White Blood Cell Count 15.49 K/mm3 (4.00-11.30)
[2024-12-08 18:53] LABS: Albumin, Blood 3.8 g/dL (3.4-5.0); Albumin/Globulin Ratio 1.3 (0.8-1.8); Bilirubin, Total 0.4 mg/dL (0.1-1.0); Bun/Creatinine Ratio 9.1 (12.0-20.0); Calcium, Blood 9.2 mg/dL (8.5-10.1); Creatinine, Blood 0.77 mg/dL (0.60-1.20); Potassium, Blood 3.3 mmol/L (3.5-5.5); Total Protein, Blood 6.8 g/dL (6.4-8.2)
[2024-12-08 18:55] LABS: SEG NEUTROPHILS PERCENT MAN 62 % (41-73); TOTAL CELLS COUNTED 100
[2024-12-08 18:57] LABS: BAND PERCENT MAN 2 % (0-8); BASOPHILS ABSOLUTE MAN 1.23 K/mm3 (0.00-0.23); BASOPHILS PERCENT MAN 8 % (0-2); BLASTS PERCENT MAN 1 % (0-0); EOSINOPHILS ABSOLUTE MAN 0.15 K/mm3 (0.00-0.68); EOSINOPHILS PERCENT MAN 1 % (0-6); LYMPHOCYTES % ATYPICAL MANUAL 1 % (0-0); LYMPHOCYTES ABSOLUTE MAN 2.63 K/mm3 (0.84-5.20); LYMPHOCYTES PERCENT MAN 16 % (21-46); MONOCYTES PERCENT MAN 2 % (4-13); MYELOCYTE ABSOLUTE MAN 0.92 K/mm3 (0.00-0.00); MYELOCYTE PERCENT MAN 6 % (0-0); NEUTROPHILS ABSOLUTE MAN 9.91 K/mm3 (1.96-9.15); PLASMA CELL ABSOLUTE MAN 0.15 K/mm3 (0.00-0.00); PLASMA CELLS PERCENT MAN 1 % (0-0)
[2024-12-08] MEDS ORDERED: OxyCODONE HCL 30 MG TAB (Immediate Release) PO ONE (19:00)
[2024-12-08] MEDS ORDERED: OXYCODONE PO ONE (19:25)
[2024-12-08 19:34] VITALS: BP 148/97
[2024-12-08] MEDS ORDERED: SCEMBLIX40 MG PO (19:38)
[2024-12-08] MEDS ORDERED: TESTOSTERONE75 G1 (19:38)
[2024-12-08] MEDS ORDERED: AMLODIPINE BES2.5 MG PO (19:38)
== END 2024-12-08 20:31 | disposition home or self-care (01) ==
LOC: ER 17:14
PROVIDERS: Student in an Organized Health Care Education/Training Program
DX: J34.89 Other specified disorders of nose and nasal sinuses (principal); C92.10 Chronic myeloid leukemia, BCR/ABL-positive, not having achieved remission; G89.29 Other chronic pain; F43.10 Post-traumatic stress disorder, unspecified; E10.40 Type 1 diabetes mellitus with diabetic neuropathy, unspecified; I10 Essential (primary) hypertension; K21.9 Gastro-esophageal reflux disease without esophagitis; E78.5 Hyperlipidemia, unspecified; J44.9 Chronic obstructive pulmonary disease, unspecified; Z87.891 Personal history of nicotine dependence; Z88.1 Allergy status to other antibiotic agents; Z88.8 Allergy status to other drugs, medicaments and biological substances; Z79.4 Long term (current) use of insulin; Z79.899 Other long term (current) drug therapy
CPT/HCPCS: 70450; 80053; 82947; 83615; 85025; 99284-25; A9270

== ENCOUNTER 2024-12-16 13:13 | Observation (INO) | payer MEDICARE, OTHER ==
[~2024-12-16] VITALS: Ht 182.9 cm; Wt 130.0 kg
[2024-12-16] VITALS (9 sets, daily range): BP systolic 112–164; BP diastolic 86–111
[~2024-12-16 13:13] MED LIST changes: +AMLODIPINE BES2.5 MG PO; +SCEMBLIX40 MG PO; +TESTOSTERONE75 G1
[2024-12-16 13:31] LABS: Calcium, Ionized (POC) 1.16 mmol/L (1.10-1.46); Chloride (POC) 102 mmol/L (98-108); Glucose (ISTAT POC) 66 mg/dL (70-99); Hemoglobin (POC) 14.6 g/dL (13.5-17.5); Potassium (POC) 4.1 mmol/L (3.5-5.5); Sodium (POC) 141 mmol/L (135-148); Total CO2 (POC) 29 mmol/L (21-32)
[2024-12-16] MEDS ORDERED: Dextrose 50% 50 ML Syringe ONE (13:32)
[2024-12-16] MEDS ORDERED: Dextrose 50% 50 ML Syringe IV ONE ×3 (13:45→15:45)
[2024-12-16] MEDS ORDERED: Lactated Ringer's 1,000 ML IV SCH (14:30)
[2024-12-16 14:31] LABS: Albumin, Blood 3.5 g/dL (3.4-5.0); Albumin/Globulin Ratio 1.1 (0.8-1.8); Bilirubin, Total 0.3 mg/dL (0.1-1.0); Bun/Creatinine Ratio 16.6 (12.0-20.0); Creatinine, Blood 0.78 mg/dL (0.60-1.20); Globulin, Blood 3.2 g/dL (2.2-4.0); Magnesium, Blood 1.6 mg/dL (1.6-2.4); Phosphorus, Blood 1.6 mg/dL (2.5-4.9); Potassium, Blood 4.1 mmol/L (3.5-5.5); Total Protein, Blood 6.7 g/dL (6.4-8.2)
[2024-12-16] MEDS ORDERED: Morphine Sulfate 10 MG/ML 1MLSYR IV ONE (14:50)
[2024-12-16] MEDS ORDERED: D5W-1/2NS 1,000 ML IV SCH (14:55)
[2024-12-16 15:01] LABS: Hematocrit 43.1 % (37.0-53.0); Hemoglobin 14.2 g/dL (13.5-17.5); Mean Corpuscular HGB 30.3 pg (26.0-34.0); Mean Corpuscular HGB Conc 32.9 g/dL (31.5-36.5); Mean Corpuscular Volume 92 fL (80-100); Mean Platelet Volume 11.9 fL (9.1-12.4); NRBC ABSOLUTE 0.03 K/mm3 (0.00-0.02); NRBC Auto 0.1 /100 WBC (0.0-0.2); Platelet Count 319 K/mm3 (150-400); RDW Coefficient Variation 13.3 % (11.7-14.2); RDW Standard Deviation 44.6 fL (35.1-46.3); Red Blood Cell Count 4.68 M/mm3 (4.30-5.90)
[2024-12-16 15:06] LABS: White Blood Cell Count 52.55 K/mm3 (4.00-11.30)
[2024-12-16 15:54] LABS: Source, Urine Clean Catch
[2024-12-16 15:55] LABS: BAND PERCENT MAN 11 % (0-8); BASOPHILS ABSOLUTE MAN 3.67 K/mm3 (0.00-0.23); BASOPHILS PERCENT MAN 7 % (0-2); EOSINOPHILS PERCENT MAN 0 % (0-6); LYMPHOCYTES PERCENT MAN 8 % (21-46); METAMYELOCYTE PERCENT MAN 8 % (0-0); MONOCYTES ABSOLUTE MAN 1.05 K/mm3 (0.16-1.47); MONOCYTES PERCENT MAN 2 % (4-13); NEUTROPHILS ABSOLUTE MAN 32.58 K/mm3 (1.96-9.15); SEG NEUTROPHILS PERCENT MAN 51 % (41-73); TOTAL CELLS COUNTED 100
[2024-12-16 15:56] LABS: MYELOCYTE PERCENT MAN 12 % (0-0); PROMYELOCYTE ABSOLUTE MAN 0.52 K/mm3 (0.00-0.00); PROMYELOCYTE PERCENT MAN 1 % (0-0)
[2024-12-16 16:00] LABS: Appearance, Urine Clear (Clear); Bilirubin, Urine Neg (Neg); Blood, Urine Neg (Neg); Glucose Qualitative, Urine 1+ (Neg); Ketones, Urine Neg (Neg); Leukocyte Esterase, Urine Neg (Neg); Nitrite, Urine Neg (Neg); Protein, Urine 1+ (Neg); Specific Gravity, Urine 1.015 (1.003-1.022); Urobilinogen, Urine NORM (Normal)
[2024-12-16] MEDS ORDERED: OxyCODONE HCL 30 MG TAB (Immediate Release) PO ONE (16:05)
[2024-12-16] MEDS ORDERED: Dextrose 10% 1,000 ML IV SCH (16:10)
[2024-12-16 16:13] LABS: Color, Urine Pale Yellow (P-Yellow)
[2024-12-16] MEDS ORDERED: Piperacillin/Tazobactam Sod 3.375 GM in NS 100 ML IV ONE (16:15)
[2024-12-16] MEDS ORDERED: Dextrose 10% 500 ML IV SCH (16:30)
[2024-12-16] MEDS ORDERED: Clindamycin 600mg in D5W 50 ML IV ONE (16:40)
[2024-12-16] MEDS ORDERED: Ketorolac Tromethamine 15mg Vial IV ONE (16:55)
[2024-12-16 17:17] LABS: International Normalized Ratio 1.05; Prothrombin Time Results 11.2 Sec (9.7-11.5)
[2024-12-16] MEDS ORDERED: HYDROmorphone HCl/Pf 1MG SYR IV ONE (17:35)
[2024-12-16] MEDS ORDERED: HYDROmorphone HCl/Pf 1MG SYR IV PRN ×4 (18:45→22:10)
[2024-12-16] MEDS ORDERED: OxyCODONE HCL 5 MG TAB PO PRN (18:45)
[2024-12-16] MEDS ORDERED: Metoclopramide HCl 5MG / ML 2ML Vial IV PRN (18:45)
[2024-12-16] MEDS ORDERED: Ondansetron HCl 2 MG / ML 2ML Vial IV PRN (18:45)
[2024-12-16] MEDS ORDERED: Sodium Phosphate 20 MM in Dextrose 5% 500 ML IV ONE (19:00)
[2024-12-16] MEDS ORDERED: AmLODIPine Besylate 5 MG Tab PO ONE (19:00)
[2024-12-16] MEDS ORDERED: Glucagon, Human Recombinant 1 MG/Vial IV ONE (19:00)
[2024-12-16 20:29] LABS: Calcium, Blood 8.9 mg/dL (8.5-10.1); Creatinine, Blood 0.85 mg/dL (0.60-1.20)
[2024-12-16] MEDS ORDERED: Metoprolol Tartrate 25 MG Tab PO SCH (21:00)
[2024-12-16] MEDS ORDERED: Sennosides 8.6 MG Tab PO SCH (21:00)
--- NOTE | 2024-12-16 21:16 | NUR ---
SERVICE DOG PT ARRIVED FROM ER WITH DOG IN BED WITH HIM. SPOKE WITH PT REGARDING SOMEONE FRIEND OR FAMILY WHO CAN COME INTO TAKE CARE OF DOG. PT STATES,"I HAVE NO ONE WHO CAN COME IN, I WILL JUST TAKE HER OUTSIDE IF SHE NEEDS TO GO". EXPLAINED THAT PT IS AN ICU STATUS PT AND CAN ONLY LEAVE THE UNIT WITH REGISTERED PHARMACIST AND THAT THERE IS NOT STAFF AVAILABLE TO CARE FOR A DOG. PT STATES,"I HAVE NEVER HAD A PROBLEM IN THE PAST WITH THE DOG STAYING. MY DAD TOLD ME TO FUCK OFF AND NOT CALL HIM AGAIN TODAY. SO I HAVE NO ONE TO HELP". CALL TO NURSEING PRESS OPERATOR PRINTING CYRUS CHIANG RN, ICU COORDINATOR MALGORZATA HEARD RN AND HOSPITALIST CARISSA WATERS EXPLAINED ABOUT DOG AND IT BEING A SERVICE DOG (PTSD DOG). PT CHANGED TO PCU STATUS BY HOSPITALIST DUE TO BLOOD SUGARS BEING UP OFF D10 GTT. THIS WAY PT CAN CONT TO CARE FOR DOG HIMSELF. EXPLAINED TO PT THAT HE IS BEING CHANGED TO PCU STATUS SO HE MAY CONT TO CARE FOR HIS DOG. ENCOURAGED PT TO HAVE SOMEONE COME IN TO CARE FOR DOG (FAMILY OR FRIEND). EXPLAINED THAT IF PT STATUS CONDITION DETERIORATES BACK TO ICU STATUS OR IF AT ANYTIME HE IS UNABLE TO CARE FOR DOG PCU STATUS AND THERE IS NO FRIEND OR FAMILY TO CARE FOR DOG THAT THE [facility] OFFICE WILL BE NOTIFIED TO TAKE THE DOG TO [facility] UNTIL PT IS DISCHARED. PT STATES,"THAT IS NOT GOING TO WORK". EXPLAINED THAT IS WORST CARE SCENARIO, BUT WE NEED TO MAKE SURE HE IS AWARE. AGAIN ENCOURAGED TO HAVE SOMEONE COME INTO TAKE THE DOG. PT IS BEING COOPERATIVE WITH CARE AT THIS TIME. DOG IS WELL BEHAVED AND SITTING IN BED WITH PT.
[2024-12-16] MEDS ORDERED: Insulin Human Lispro 100 Units/ML 3ML Syringe SC SCH (22:00)
[2024-12-16] MEDS ORDERED: Ketorolac Tromethamine 15mg Vial IV PRN (22:05)
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
[2024-12-17] VITALS: BP 136/96
[2024-12-17] MEDS ORDERED: Insulin Glargine-Yfgn 100 Unit/mL 3 ML SYR SC ONE (00:30)
[2024-12-17 01:47] LABS: Glucose, Blood 533 mg/dL (70-99)
[2024-12-17] MEDS ORDERED: FentaNYL Citrate 50 MCG/ML 2 ML Injection IV PRN (02:45)
--- NOTE | 2024-12-17 02:55 | NUR ---
UPDATE: PT HAS CONTINUED TO STATE THAT THE PAIN MEDICINE WE ARE GIVING HIM IS NOT ENOUGH AND THAT HE IS STILL IN EXTREME PAIN. THIS RN HAS CALLED CARISSA AND VERNON, HOSPITIALISTS, MULTIPLE TIMES. ORDERS GIVEN. PT REQUESTING TO TALK TO THE DR ABOUT HIS PAIN MEDICATION AND HIS DIABETES MANAGEMENT. DR. NOEL NOTIFIED.
[2024-12-17] MEDS ORDERED: Insulin Human Lispro 100 Units/ML 3ML Syringe SC PRN (03:40)
--- NOTE | 2024-12-17 03:43 | NUR ---
UPDATE: DR. NOEL CAME AND TALKED TO THE PT ABOUT PAIN MANAGEMENT AND HIS DIABETES MANAGEMENT. PT STATES "HE DOES NOT REMEMBER ASKING ABOUT MORE PAIN MEDICATION" DESPITE FREQUENT INSISTANCE ON MORE PAIN MEDICATION AND TO TALK TO THE DRBrigida ABOUT PAIN MEDICATION. NO NEW ORDERS AT THIS TIME.
[2024-12-17] MEDS ORDERED: Insulin Human Lispro 100 Units/ML 3ML Syringe SC SCH (04:00)
[2024-12-17 04:03] LABS: Hematocrit 41.8 % (37.0-53.0); Hemoglobin 14.1 g/dL (13.5-17.5); Mean Corpuscular HGB 30.3 pg (26.0-34.0); Mean Corpuscular HGB Conc 33.7 g/dL (31.5-36.5); Mean Corpuscular Volume 90 fL (80-100); Mean Platelet Volume 11.2 fL (9.1-12.4); NRBC ABSOLUTE 0.02 K/mm3 (0.00-0.02); Platelet Count 294 K/mm3 (150-400); RDW Coefficient Variation 13.2 % (11.7-14.2); Red Blood Cell Count 4.65 M/mm3 (4.30-5.90)
[2024-12-17 04:09] LABS: White Blood Cell Count 57.11 K/mm3 (4.00-11.30)
[2024-12-17 04:31] LABS: BAND PERCENT MAN 9 % (0-8); BASOPHILS ABSOLUTE MAN 1.14 K/mm3 (0.00-0.23); BASOPHILS PERCENT MAN 2 % (0-2); EOSINOPHILS ABSOLUTE MAN 0.57 K/mm3 (0.00-0.68); EOSINOPHILS PERCENT MAN 1 % (0-6); LYMPHOCYTES ABSOLUTE MAN 3.99 K/mm3 (0.84-5.20); LYMPHOCYTES PERCENT MAN 7 % (21-46); METAMYELOCYTE ABSOLUTE MAN 1.71 K/mm3 (0.00-0.00); METAMYELOCYTE PERCENT MAN 3 % (0-0); MONOCYTES ABSOLUTE MAN 3.42 K/mm3 (0.16-1.47); MONOCYTES PERCENT MAN 6 % (4-13); MYELOCYTE ABSOLUTE MAN 4.56 K/mm3 (0.00-0.00); MYELOCYTE PERCENT MAN 8 % (0-0); NEUTROPHILS ABSOLUTE MAN 39.97 K/mm3 (1.96-9.15); SEG NEUTROPHILS PERCENT MAN 61 % (41-73); TOTAL CELLS COUNTED 100
[2024-12-17 04:32] LABS: BLASTS PERCENT MAN 1 % (0-0); PROMYELOCYTE ABSOLUTE MAN 1.14 K/mm3 (0.00-0.00); PROMYELOCYTE PERCENT MAN 2 % (0-0)
[2024-12-17 04:36] LABS: Albumin, Blood 3.7 g/dL (3.4-5.0); Albumin/Globulin Ratio 1.1 (0.8-1.8); Bilirubin, Total 0.4 mg/dL (0.1-1.0); Bun/Creatinine Ratio 13.2 (12.0-20.0); Calcium, Blood 9.1 mg/dL (8.5-10.1); Creatinine, Blood 1.06 mg/dL (0.60-1.20); Globulin, Blood 3.3 g/dL (2.2-4.0); Magnesium, Blood 1.8 mg/dL (1.6-2.4); Phosphorus, Blood 2.9 mg/dL (2.5-4.9); Potassium, Blood 4.6 mmol/L (3.5-5.5)
[2024-12-17 04:50] VITALS: BP 132/68
--- NOTE | 2024-12-17 04:54 | NUR ---
0407 PT ASKED TO SPEAK WITH LIBBY MAY. I WENT INTO SPEAK WITH PT AND HE STATED,"I'M WANT TO GET MY FENTANYL. THAT NURSE WANTS ME TO WAIT A LITTLE WHILE". I EXPLAINED TO PT THAT HE RECEIVED OXYCODONE 50 MG AND DILAUDID 2 MG AT 0322. IT HAD BEEN LESS THAN A HOUR SINCE LAST PAIN MED. DR NOEL CAME TO SEE PT AT 0330 AND SAID THAT THE PT SEEMED A LITTLE LOOPY AND WANTED SPACE OUT THE PAIN MEDS. PT STATED,"I THOUGHT THAT NURSES WERE SUPPOSE TO ADVOCATE FOR THIER PATIENTS". EXPLAINED THAT HIS NURSE ELDER HDZ AND MYSELF HAD CALLED TO ADVOCATE TO THE DOCTORS MULTIPLE TIMES DURING THE NIGHT AND THAT WE CAN ONLY GO BY THE DOCTORS ORDERS. EXPLAINED THAT WE ARE TRYING TO SPACE OUT PAIN MEDS SO HE HAS COVERAGE AT ALL TIMES. PT GIVEN FENTANYL AT 0439.
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
[2024-12-17 07:30] VITALS: BP 137/84
--- NOTE | 2024-12-17 08:00 | NUR ---
UPDATE PT REQUESTING OXYCODONE AND STATES HE IS IN 10/10 PAIN. PT INFORMED THAT OXYCODONE IS Q6H AND NOT AVAILABLE AT THIS TIME. PT UPSET AND STARTS YELLING STATING IT SHOULD BE EVERY 4 HOURS. PT INTERRUPTS THIS RN MULTIPLE TIMES WITH RAISED VOICE AND STATES HE WOULD LIKE TO SPEAK TO THE FRAME FEEDER. DR. HASKINS CALLED AND NOTIFIED AND WILL COME SEE THE PATIENT. FRAME FEEDER IN THE ROOM.
[2024-12-17] MEDS ORDERED: Losartan Potassium 50 MG Tab PO SCH (09:00)
[2024-12-17] MEDS ORDERED: AmLODIPine Besylate 5 MG Tab PO SCH (09:00)
[2024-12-17] MEDS ORDERED: Enoxaparin 40 MG/0.4 ML SYR SC SCH (09:00)
[2024-12-17] MEDS ORDERED: Docusate Sodium 100 MG Cap PO SCH (09:00)
--- NOTE | 2024-12-17 10:00 | NUR ---
UPDATE PT TAKEN DOWN FOR IMAGING OF LEFT SHOULDER.
[2024-12-17 11:11] VITALS: BP 139/85
[2024-12-17] MEDS ORDERED: OXYC10TA19 PO (12:38)
--- NOTE | 2024-12-17 15:14 | NUR ---
UPDATE PT PROVIDED DISCHARGE INSTRUCTIONS. PT EDUCATED ON MEDICATIONS AND FOLLOW-UP. PT PROVIDED HARD SCRIPT FOR PAIN MEDICATION. ALL QUESTIONS ANSWERED. PT AWAITING RIDE
== END 2024-12-17 16:02 | disposition home or self-care (01) ==
LOC: ER 13:13 → ERHOLD 17:26 → ICUE 17:26
PROVIDERS: Nurse Practitioner Acute Care; Student in an Organized Health Care Education/Training Program; ADMIT Internal Medicine
DX: R56.9 Unspecified convulsions (principal); E10.649 Type 1 diabetes mellitus with hypoglycemia without coma; F43.10 Post-traumatic stress disorder, unspecified; E10.40 Type 1 diabetes mellitus with diabetic neuropathy, unspecified; E78.5 Hyperlipidemia, unspecified; K21.9 Gastro-esophageal reflux disease without esophagitis; F32.9 Major depressive disorder, single episode, unspecified; J44.9 Chronic obstructive pulmonary disease, unspecified; M25.512 Pain in left shoulder; I10 Essential (primary) hypertension; G89.4 Chronic pain syndrome; F79 Unspecified intellectual disabilities; G47.33 Obstructive sleep apnea (adult) (pediatric); C92.10 Chronic myeloid leukemia, BCR/ABL-positive, not having achieved remission; Z79.4 Long term (current) use of insulin; Z87.891 Personal history of nicotine dependence; Z88.8 Allergy status to other drugs, medicaments and biological substances; Z99.89 Dependence on other enabling machines and devices
CPT/HCPCS: 36415; 70450; 71045; 73030; 80047; 80048; 80053; 82947; 83036; 83605; 83690; 83735; 84100; 84145; 85014; 85025; 85610; 87040; 93005; 93010; 94762; 96361; 96365; 96372; 96375; 96376; 99285-25; A9270; G0378; J1171; J1610; J1650; J1815; J1885; J2270; J2405; J2543; J3010; J7042; J7060; J7120

== ENCOUNTER → 2025-01-09 | Outpatient (CLI) | payer MEDICARE, OTHER ==
[2025-01-09 16:14] LABS: U Amphetamine Screen DETECTED; U Barbituate Screen Not Detected; U Benzodiazapine Screen Not Detected; U Buprenorphine Screen Not Detected; U Cannabinoids Screen DETECTED; U Cocaine Screen Not Detected; U Methadone Screen Not Detected; U Methamphetamine Screen Not Detected; U Opiates Screen Not Detected; U Oxycodone Screen DETECTED; U Phencyclidine Screen Not Detected
== END ==
LOC: LAB SHORT 09:34 → LAB 09:34
PROVIDERS: Internal Medicine Hematology & Oncology
DX: Z51.81 Encounter for therapeutic drug level monitoring (principal); Z79.899 Other long term (current) drug therapy

== ENCOUNTER → 2025-01-29 | Outpatient (CLI) | payer MEDICARE, OTHER ==
[2025-01-29 14:35] LABS: U Amphetamine Screen DETECTED; U Cannabinoids Screen DETECTED; U Oxycodone Screen DETECTED
[2025-01-29 14:36] LABS: U Barbituate Screen Not Detected; U Benzodiazapine Screen Not Detected; U Buprenorphine Screen Not Detected; U Cocaine Screen Not Detected; U Methadone Screen Not Detected; U Methamphetamine Screen Not Detected; U Opiates Screen Not Detected; U Phencyclidine Screen Not Detected
== END ==
LOC: LAB 13:01 → LAB SHORT 13:01
PROVIDERS: Internal Medicine Hematology & Oncology
DX: Z51.81 Encounter for therapeutic drug level monitoring (principal); Z79.899 Other long term (current) drug therapy

== ENCOUNTER 2025-02-01 14:03 | Emergency (ER) | payer MEDICARE, OTHER ==
[~2025-02-01] VITALS: Ht 172.7 cm; Wt 113.4 kg
[2025-02-01 14:48] LABS: NRBC ABSOLUTE 0.13 K/mm3 (0.00-0.02)
[2025-02-01 14:59] LABS: CORONAVIRUS COVID-19 AG Negative (NEGATIVE); INFLUENZA A AG Negative (NEGATIVE); INFLUENZA B AG Negative (NEGATIVE)
[2025-02-01 15:00] LABS: Hematocrit 38.3 % (37.0-53.0); Hemoglobin 13.2 g/dL (13.5-17.5); Mean Corpuscular HGB 30.3 pg (26.0-34.0); Mean Corpuscular HGB Conc 34.5 g/dL (31.5-36.5); Mean Corpuscular Volume 88 fL (80-100); NRBC Auto 0.1 /100 WBC (0.0-0.2); Platelet Count 232 K/mm3 (150-400); RDW Coefficient Variation 14.5 % (11.7-14.2); RDW Standard Deviation 46.2 fL (35.1-46.3); Red Blood Cell Count 4.36 M/mm3 (4.30-5.90)
[2025-02-01 15:05] LABS: Albumin, Blood 3.8 g/dL (3.4-5.0); Albumin/Globulin Ratio 1.2 (0.8-1.8); Bilirubin, Total 0.5 mg/dL (0.1-1.0); Bun/Creatinine Ratio 12.4 (12.0-20.0); Calcium, Blood 9.3 mg/dL (8.5-10.1); Creatinine, Blood 0.89 mg/dL (0.60-1.20); Globulin, Blood 3.3 g/dL (2.2-4.0); Total Protein, Blood 7.1 g/dL (6.4-8.2)
[2025-02-01 15:07] LABS: White Blood Cell Count 107.67 K/mm3 (4.00-11.30)
[2025-02-01 15:15] VITALS: BP 154/89
[2025-02-01 15:20] LABS: BAND PERCENT MAN 11 % (0-8); BASOPHILS PERCENT MAN 4 % (0-2); BLASTS PERCENT MAN 3 % (0-0); EOSINOPHILS ABSOLUTE MAN 2.15 K/mm3 (0.00-0.68); EOSINOPHILS PERCENT MAN 2 % (0-6); LYMPHOCYTES ABSOLUTE MAN 13.99 K/mm3 (0.84-5.20); LYMPHOCYTES PERCENT MAN 13 % (21-46); METAMYELOCYTE PERCENT MAN 4 % (0-0); MONOCYTES ABSOLUTE MAN 6.46 K/mm3 (0.16-1.47); MONOCYTES PERCENT MAN 6 % (4-13); MYELOCYTE ABSOLUTE MAN 1.07 K/mm3 (0.00-0.00); MYELOCYTE PERCENT MAN 1 % (0-0); NEUTROPHILS ABSOLUTE MAN 72.13 K/mm3 (1.96-9.15); SEG NEUTROPHILS PERCENT MAN 56 % (41-73); TOTAL CELLS COUNTED 100
== END 2025-02-01 16:35 | disposition home or self-care (01) ==
LOC: ER 14:03
PROVIDERS: Emergency Medicine
DX: J02.9 Acute pharyngitis, unspecified (principal); C92.10 Chronic myeloid leukemia, BCR/ABL-positive, not having achieved remission; F43.10 Post-traumatic stress disorder, unspecified; E10.9 Type 1 diabetes mellitus without complications; E11.40 Type 2 diabetes mellitus with diabetic neuropathy, unspecified; K21.9 Gastro-esophageal reflux disease without esophagitis; E78.5 Hyperlipidemia, unspecified; Z87.891 Personal history of nicotine dependence; Z79.4 Long term (current) use of insulin; Z79.899 Other long term (current) drug therapy; Z88.1 Allergy status to other antibiotic agents; Z88.8 Allergy status to other drugs, medicaments and biological substances
CPT/HCPCS: 70491; 80053; 85025; 87081; 87428-QW; 87430; 99284-25; Q9967

== ENCOUNTER → 2025-02-05 | Outpatient (CLI) | payer MEDICARE, OTHER ==
[2025-02-05 19:48] LABS: U Amphetamine Screen DETECTED; U Barbituate Screen Not Detected; U Benzodiazapine Screen Not Detected; U Buprenorphine Screen Not Detected; U Cannabinoids Screen DETECTED; U Cocaine Screen Not Detected; U Methadone Screen Not Detected; U Methamphetamine Screen Not Detected; U Opiates Screen Not Detected; U Oxycodone Screen DETECTED; U Phencyclidine Screen Not Detected
== END ==
LOC: LAB SHORT 16:35 → LAB 16:35
PROVIDERS: Internal Medicine Hematology & Oncology
DX: Z51.81 Encounter for therapeutic drug level monitoring (principal); Z79.899 Other long term (current) drug therapy

== ENCOUNTER → 2025-02-26 | Outpatient (CLI) | payer MEDICARE, OTHER ==
[2025-02-26 13:13] LABS: Source, Urine Voided
[2025-02-26 14:33] LABS: Bilirubin, Urine Neg (Neg); Color, Urine Yellow (P-Yellow); Glucose Qualitative, Urine Neg (Neg); Ketones, Urine Neg (Neg); Leukocyte Esterase, Urine Neg (Neg); Protein, Urine 1+ (Neg); Specific Gravity, Urine 1.025 (1.003-1.022); Urobilinogen, Urine NORM (Normal)
[2025-02-26 14:50] LABS: U Amphetamine Screen DETECTED; U Cannabinoids Screen DETECTED; U Oxycodone Screen DETECTED
[2025-02-26 14:51] LABS: U Barbituate Screen Not Detected; U Benzodiazapine Screen Not Detected; U Buprenorphine Screen Not Detected; U Cocaine Screen Not Detected; U Methadone Screen Not Detected; U Methamphetamine Screen Not Detected; U Opiates Screen Not Detected; U Phencyclidine Screen Not Detected
== END ==
LOC: LAB SHORT 11:42 → LAB 11:42
PROVIDERS: Internal Medicine Hematology & Oncology
DX: R30.0 Dysuria (principal); C92.10 Chronic myeloid leukemia, BCR/ABL-positive, not having achieved remission; Z79.899 Other long term (current) drug therapy

== ENCOUNTER → 2025-03-05 | Outpatient (CLI) | payer MEDICARE, OTHER ==
[2025-03-05 19:19] LABS: U Amphetamine Screen DETECTED; U Barbituate Screen Not Detected; U Benzodiazapine Screen Not Detected; U Buprenorphine Screen Not Detected; U Cannabinoids Screen DETECTED; U Cocaine Screen Not Detected; U Methadone Screen Not Detected; U Methamphetamine Screen Not Detected; U Opiates Screen Not Detected; U Oxycodone Screen DETECTED; U Phencyclidine Screen Not Detected
== END ==
LOC: LAB SHORT 18:01 → LAB 18:01
PROVIDERS: Internal Medicine Hematology & Oncology
DX: C92.10 Chronic myeloid leukemia, BCR/ABL-positive, not having achieved remission (principal); M87.00 Idiopathic aseptic necrosis of unspecified bone; Z79.899 Other long term (current) drug therapy

== ENCOUNTER 2025-03-09 15:32 | Emergency (ER) | payer MEDICARE, OTHER ==
[~2025-03-09] VITALS: Ht 188 cm; Wt 122.5 kg
[2025-03-09 15:59] LABS: Source, Urine Clean Catch
[2025-03-09 16:03] LABS: Bilirubin, Urine Neg (Neg); Color, Urine Yellow (P-Yellow); Glucose Qualitative, Urine Neg (Neg); Ketones, Urine Neg (Neg); Leukocyte Esterase, Urine Neg (Neg); Protein, Urine Neg (Neg); Specific Gravity, Urine 1.010 (1.003-1.022); Urobilinogen, Urine NORM (Normal)
[2025-03-09 16:04] LABS: BASOPHILS ABSOLUTE AUTO 0.03 K/mm3 (0.00-0.23); BASOPHILS PERCENT AUTO 1 % (0-2); EOSINOPHILS ABSOLUTE AUTO 0.06 K/mm3 (0.00-0.68); EOSINOPHILS PERCENT AUTO 1 % (0-6); Hematocrit 35.9 % (37.0-53.0); Hemoglobin 11.7 g/dL (13.5-17.5); IMMATURE GRAN ABSOLUTE AUTO 0.02 K/mm3 (0.00-0.10); IMMATURE GRAN PERCENT AUTO 0 % (0-1); LYMPHOCYTES ABSOLUTE AUTO 0.75 K/mm3 (0.84-5.20); LYMPHOCYTES PERCENT AUTO 14 % (21-46); MONOCYTES ABSOLUTE AUTO 0.36 K/mm3 (0.16-1.47); MONOCYTES PERCENT AUTO 7 % (4-13); Mean Corpuscular HGB Conc 32.6 g/dL (31.5-36.5); Mean Corpuscular Volume 93 fL (80-100); NEUTROPHILS ABSOLUTE AUTO 4.13 K/mm3 (1.96-9.15); NEUTROPHILS PERCENT AUTO 77 % (41-73); NRBC ABSOLUTE 0.00 K/mm3 (0.00-0.02); NRBC Auto 0.0 /100 WBC (0.0-0.2); Platelet Count 235 K/mm3 (150-400); RDW Coefficient Variation 19.1 % (11.7-14.2); RDW Standard Deviation 64.9 fL (35.1-46.3)
[2025-03-09 16:11] LABS: pH Blood Venous 7.38 (7.34-7.37)
[2025-03-09 16:26] LABS: Alanine Aminotransfer (ALT/SGP 26.0 U/L (12-78); Albumin, Blood 3.7 g/dL (3.4-5.0); Albumin/Globulin Ratio 1.2 (0.8-1.8); Anion Gap 5.0 mmol/L (3-11); Aspartate Aminotrans (AST/SGOT 17.0 U/L (12-37); Bilirubin, Total 0.6 mg/dL (0.1-1.0); Blood Urea Nitrogen 11.0 mg/dL (8-24); CO2, Blood 32.0 mmol/L (21-32); Calcium, Blood 9.1 mg/dL (8.5-10.1); Chloride, Blood 105.0 mmol/L (98-108); Creatinine, Blood 0.68 mg/dL (0.60-1.20); Globulin, Blood 3.2 g/dL (2.2-4.0); Glucose, Blood 65.0 mg/dL (70-99); Potassium, Blood 4.0 mmol/L (3.5-5.5); Sodium, Blood 138.0 mmol/L (136-145); Total Protein, Blood 6.9 g/dL (6.4-8.2)
[2025-03-09 16:46] LABS: Magnesium, Blood 1.8 mg/dL (1.6-2.4); Phosphorus, Blood 1.6 mg/dL (2.5-4.9)
[2025-03-09] MEDS ORDERED: NS 1,000 ML IV SCH (19:10)
[2025-03-09 19:35] VITALS: BP 142/92
[2025-03-09] MEDS ORDERED: Morphine Sulfate 4 MG/1 ML Injection IV ONE (19:35)
[2025-03-09] MEDS ORDERED: Potassium Phos/Sodium Phos 250 MG PACK PO ONE (21:20)
[2025-03-09] MEDS ORDERED: PHOSPHOROUS 25250 MG PO (21:30)
[2025-03-09] MEDS ORDERED: Ketorolac Tromethamine 15mg Vial IV ONE (21:35)
== END 2025-03-09 21:42 | disposition home or self-care (01) ==
LOC: ER 15:32
PROVIDERS: Physician Assistant
DX: E83.39 Other disorders of phosphorus metabolism (principal); R55 Syncope and collapse; F43.10 Post-traumatic stress disorder, unspecified; E10.40 Type 1 diabetes mellitus with diabetic neuropathy, unspecified; K21.9 Gastro-esophageal reflux disease without esophagitis; E78.5 Hyperlipidemia, unspecified; I10 Essential (primary) hypertension; Z87.891 Personal history of nicotine dependence; Z79.899 Other long term (current) drug therapy; Z79.4 Long term (current) use of insulin; Z88.1 Allergy status to other antibiotic agents; Z88.8 Allergy status to other drugs, medicaments and biological substances
CPT/HCPCS: 70450; 73610; 80053; 81003; 82010; 82803; 83735; 84100; 85025; 93005; 93010; 96361; 96374; 96375; 99285-25; A9270; J1885; J2270; J7030

== ENCOUNTER 2025-03-10 14:17 | Emergency (ER) | payer MEDICARE, OTHER ==
[~2025-03-10] VITALS: Ht 188 cm; Wt 122.5 kg
[~2025-03-10 14:17] MED LIST changes: +PHOSPHOROUS 25250 MG PO
[2025-03-10] MEDS ORDERED: Morphine Sulfate 4 MG/1 ML Injection IM ONE (15:55)
[2025-03-10] MEDS ORDERED: Ondansetron 4 MG SoluTab BC ONE (16:00)
[2025-03-10] MEDS ORDERED: RX Prepack 2 Tabs Ondansetron ODT 4MG UD ONE (16:45)
[2025-03-10] MEDS ORDERED: RX Prepack 6 Tabs Oxycodone 5mg UD ONE (16:45)
[2025-03-10 17:24] VITALS: BP 151/91
== END 2025-03-10 17:38 | disposition home or self-care (01) ==
LOC: ER 14:17
DX: F11.23 Opioid dependence with withdrawal (principal); C92.10 Chronic myeloid leukemia, BCR/ABL-positive, not having achieved remission; I10 Essential (primary) hypertension; E10.40 Type 1 diabetes mellitus with diabetic neuropathy, unspecified; K21.9 Gastro-esophageal reflux disease without esophagitis; E78.5 Hyperlipidemia, unspecified; J44.9 Chronic obstructive pulmonary disease, unspecified; Z87.891 Personal history of nicotine dependence; Z88.1 Allergy status to other antibiotic agents; Z88.8 Allergy status to other drugs, medicaments and biological substances; Z79.4 Long term (current) use of insulin; Z79.899 Other long term (current) drug therapy
CPT/HCPCS: 96372; 99284-25; A9270; J2270

== ENCOUNTER → 2025-03-12 | Outpatient (CLI) | payer MEDICARE, OTHER ==
[2025-03-12 14:22] LABS: U Amphetamine Screen DETECTED; U Barbituate Screen Not Detected; U Benzodiazapine Screen Not Detected; U Buprenorphine Screen DETECTED; U Cannabinoids Screen DETECTED; U Cocaine Screen Not Detected; U Methadone Screen Not Detected; U Methamphetamine Screen Not Detected; U Opiates Screen Not Detected; U Oxycodone Screen Not Detected; U Phencyclidine Screen Not Detected
== END ==
LOC: LAB 11:19 → LAB SHORT 11:19
PROVIDERS: Internal Medicine Hematology & Oncology
DX: Z51.81 Encounter for therapeutic drug level monitoring (principal); Z79.899 Other long term (current) drug therapy

== ENCOUNTER → 2025-03-26 | Outpatient (CLI) | payer MEDICARE, OTHER ==
[2025-03-26 14:11] LABS: U Amphetamine Screen DETECTED; U Barbituate Screen Not Detected; U Benzodiazapine Screen Not Detected; U Buprenorphine Screen Not Detected; U Cannabinoids Screen DETECTED; U Cocaine Screen Not Detected; U Methadone Screen Not Detected; U Methamphetamine Screen Not Detected; U Opiates Screen Not Detected; U Oxycodone Screen Not Detected; U Phencyclidine Screen Not Detected
== END | disposition home or self-care (01) ==
LOC: LAB 13:02 → LAB SHORT 13:02
PROVIDERS: Internal Medicine Hematology & Oncology
DX: C92.10 Chronic myeloid leukemia, BCR/ABL-positive, not having achieved remission (principal); Z79.899 Other long term (current) drug therapy

== ENCOUNTER 2025-03-30 00:44 | Emergency (ER) | payer MEDICARE, OTHER ==
[~2025-03-30] VITALS: Ht 188 cm; Wt 122.5 kg
[2025-03-30 02:42] LABS: BASOPHILS ABSOLUTE AUTO 0.15 K/mm3 (0.00-0.23); BASOPHILS PERCENT AUTO 2 % (0-2); EOSINOPHILS ABSOLUTE AUTO 0.04 K/mm3 (0.00-0.68); EOSINOPHILS PERCENT AUTO 1 % (0-6); Hematocrit 39.3 % (37.0-53.0); Hemoglobin 12.9 g/dL (13.5-17.5); IMMATURE GRAN ABSOLUTE AUTO 0.05 K/mm3 (0.00-0.10); IMMATURE GRAN PERCENT AUTO 1 % (0-1); LYMPHOCYTES ABSOLUTE AUTO 1.98 K/mm3 (0.84-5.20); LYMPHOCYTES PERCENT AUTO 23 % (21-46); MONOCYTES ABSOLUTE AUTO 0.63 K/mm3 (0.16-1.47); MONOCYTES PERCENT AUTO 7 % (4-13); Mean Corpuscular HGB Conc 32.8 g/dL (31.5-36.5); Mean Corpuscular Volume 93 fL (80-100); NEUTROPHILS ABSOLUTE AUTO 5.93 K/mm3 (1.96-9.15); NEUTROPHILS PERCENT AUTO 67 % (41-73); NRBC ABSOLUTE 0.00 K/mm3 (0.00-0.02); NRBC Auto 0.0 /100 WBC (0.0-0.2); Platelet Count 317 K/mm3 (150-400); RDW Coefficient Variation 14.3 % (11.7-14.2); RDW Standard Deviation 48.9 fL (35.1-46.3)
[2025-03-30 03:29] LABS: Alanine Aminotransfer (ALT/SGP 32.0 U/L (12-78); Albumin, Blood 3.8 g/dL (3.4-5.0); Albumin/Globulin Ratio 1.1 (0.8-1.8); Anion Gap 8.0 mmol/L (3-11); Aspartate Aminotrans (AST/SGOT 27.0 U/L (12-37); Bilirubin, Total 0.3 mg/dL (0.1-1.0); Blood Urea Nitrogen 12.0 mg/dL (8-24); CO2, Blood 28.0 mmol/L (21-32); Calcium, Blood 8.5 mg/dL (8.5-10.1); Chloride, Blood 109.0 mmol/L (98-108); Creatinine, Blood 0.83 mg/dL (0.60-1.20); Globulin, Blood 3.5 g/dL (2.2-4.0); Glucose, Blood 47.0 mg/dL (70-99); Potassium, Blood 3.7 mmol/L (3.5-5.5); Sodium, Blood 141.0 mmol/L (136-145); Total Protein, Blood 7.3 g/dL (6.4-8.2)
[2025-03-30 04:30] VITALS: BP 164/96
== END 2025-03-30 04:40 | disposition home or self-care (01) ==
LOC: ER 00:44
PROVIDERS: Emergency Medicine
DX: E10.649 Type 1 diabetes mellitus with hypoglycemia without coma (principal); D64.9 Anemia, unspecified; I10 Essential (primary) hypertension; E10.40 Type 1 diabetes mellitus with diabetic neuropathy, unspecified; J44.9 Chronic obstructive pulmonary disease, unspecified; F43.10 Post-traumatic stress disorder, unspecified; E78.5 Hyperlipidemia, unspecified; Z68.34 Body mass index [BMI] 34.0-34.9, adult; Z87.891 Personal history of nicotine dependence; Z59.89 Other problems related to housing and economic circumstances
CPT/HCPCS: 71046; 80053; 82947; 83690; 84484; 85025; 93005; 93010; 96374; 99285-25

== ENCOUNTER 2025-03-31 13:50 | Emergency (ER) | payer MEDICARE, OTHER ==
[~2025-03-31] VITALS: Ht 188 cm; Wt 122.5 kg
[2025-03-31 14:35] LABS: BASOPHILS ABSOLUTE AUTO 0.15 K/mm3 (0.00-0.23); BASOPHILS PERCENT AUTO 2 % (0-2); EOSINOPHILS ABSOLUTE AUTO 0.01 K/mm3 (0.00-0.68); EOSINOPHILS PERCENT AUTO 0 % (0-6); Hematocrit 39.7 % (37.0-53.0); Hemoglobin 13.3 g/dL (13.5-17.5); IMMATURE GRAN ABSOLUTE AUTO 0.07 K/mm3 (0.00-0.10); IMMATURE GRAN PERCENT AUTO 1 % (0-1); LYMPHOCYTES ABSOLUTE AUTO 1.07 K/mm3 (0.84-5.20); LYMPHOCYTES PERCENT AUTO 12 % (21-46); MONOCYTES ABSOLUTE AUTO 0.46 K/mm3 (0.16-1.47); MONOCYTES PERCENT AUTO 5 % (4-13); Mean Corpuscular HGB Conc 33.5 g/dL (31.5-36.5); Mean Corpuscular Volume 91 fL (80-100); NEUTROPHILS ABSOLUTE AUTO 7.43 K/mm3 (1.96-9.15); NEUTROPHILS PERCENT AUTO 81 % (41-73); NRBC ABSOLUTE 0.00 K/mm3 (0.00-0.02); NRBC Auto 0.0 /100 WBC (0.0-0.2); Platelet Count 286 K/mm3 (150-400); RDW Coefficient Variation 13.6 % (11.7-14.2); RDW Standard Deviation 45.3 fL (35.1-46.3)
[2025-03-31 14:51] LABS: Alanine Aminotransfer (ALT/SGP 24.0 U/L (12-78); Albumin, Blood 3.7 g/dL (3.4-5.0); Albumin/Globulin Ratio 1.2 (0.8-1.8); Anion Gap 7.0 mmol/L (3-11); Aspartate Aminotrans (AST/SGOT 17.0 U/L (12-37); Bilirubin, Total 0.7 mg/dL (0.1-1.0); Blood Urea Nitrogen 13.0 mg/dL (8-24); CO2, Blood 29.0 mmol/L (21-32); Calcium, Blood 8.8 mg/dL (8.5-10.1); Chloride, Blood 104.0 mmol/L (98-108); Creatinine, Blood 0.66 mg/dL (0.60-1.20); Globulin, Blood 3.2 g/dL (2.2-4.0); Glucose, Blood 229.0 mg/dL (70-99); Potassium, Blood 3.7 mmol/L (3.5-5.5); Sodium, Blood 136.0 mmol/L (136-145); Total Protein, Blood 6.9 g/dL (6.4-8.2)
[2025-03-31] MEDS ORDERED: Morphine Sulfate 4 MG/1 ML Injection IV ONE (15:45)
[2025-03-31] MEDS ORDERED: RX Prepack 6 Tabs Oxycodone 5mg UD ONE (16:25)
[2025-03-31 16:54] VITALS: BP 142/86
== END 2025-03-31 16:40 | disposition home or self-care (01) ==
LOC: ER 13:50
PROVIDERS: Student in an Organized Health Care Education/Training Program
DX: R07.9 Chest pain, unspecified (principal); E10.40 Type 1 diabetes mellitus with diabetic neuropathy, unspecified; I10 Essential (primary) hypertension; K21.9 Gastro-esophageal reflux disease without esophagitis; J44.9 Chronic obstructive pulmonary disease, unspecified; E78.5 Hyperlipidemia, unspecified; Z88.1 Allergy status to other antibiotic agents; Z88.8 Allergy status to other drugs, medicaments and biological substances; Z79.4 Long term (current) use of insulin; Z79.899 Other long term (current) drug therapy; Z87.891 Personal history of nicotine dependence
CPT/HCPCS: 71046; 80053; 84484; 85025; 85379; 93005; 93010; 96374; 99285-25; A9270; J2270

== ENCOUNTER 2025-04-01 13:24 | Emergency (ER) | payer MEDICARE, OTHER ==
[~2025-04-01] VITALS: Ht 188 cm; Wt 122.5 kg
[2025-04-01 14:23] LABS: BASOPHILS ABSOLUTE AUTO 0.19 K/mm3 (0.00-0.23); BASOPHILS PERCENT AUTO 2 % (0-2); EOSINOPHILS ABSOLUTE AUTO 0.02 K/mm3 (0.00-0.68); EOSINOPHILS PERCENT AUTO 0 % (0-6); Hematocrit 43.5 % (37.0-53.0); Hemoglobin 14.5 g/dL (13.5-17.5); IMMATURE GRAN ABSOLUTE AUTO 0.06 K/mm3 (0.00-0.10); IMMATURE GRAN PERCENT AUTO 1 % (0-1); LYMPHOCYTES ABSOLUTE AUTO 1.25 K/mm3 (0.84-5.20); LYMPHOCYTES PERCENT AUTO 12 % (21-46); MONOCYTES ABSOLUTE AUTO 0.47 K/mm3 (0.16-1.47); MONOCYTES PERCENT AUTO 4 % (4-13); Mean Corpuscular HGB Conc 33.3 g/dL (31.5-36.5); Mean Corpuscular Volume 92 fL (80-100); NEUTROPHILS ABSOLUTE AUTO 8.62 K/mm3 (1.96-9.15); NEUTROPHILS PERCENT AUTO 81 % (41-73); NRBC ABSOLUTE 0.00 K/mm3 (0.00-0.02); NRBC Auto 0.0 /100 WBC (0.0-0.2); Platelet Count 338 K/mm3 (150-400); RDW Coefficient Variation 13.6 % (11.7-14.2); RDW Standard Deviation 46.4 fL (35.1-46.3)
[2025-04-01 15:03] LABS: Alanine Aminotransfer (ALT/SGP 26.0 U/L (12-78); Albumin, Blood 4.1 g/dL (3.4-5.0); Albumin/Globulin Ratio 1.1 (0.8-1.8); Anion Gap 7.0 mmol/L (3-11); Aspartate Aminotrans (AST/SGOT 19.0 U/L (12-37); Bilirubin, Total 0.5 mg/dL (0.1-1.0); Blood Urea Nitrogen 12.0 mg/dL (8-24); CO2, Blood 30.0 mmol/L (21-32); Calcium, Blood 9.2 mg/dL (8.5-10.1); Chloride, Blood 105.0 mmol/L (98-108); Creatinine, Blood 0.74 mg/dL (0.60-1.20); Globulin, Blood 3.8 g/dL (2.2-4.0); Glucose, Blood 149.0 mg/dL (70-99); Potassium, Blood 3.6 mmol/L (3.5-5.5); Sodium, Blood 138.0 mmol/L (136-145); Total Protein, Blood 7.9 g/dL (6.4-8.2)
[2025-04-01 15:44] VITALS: BP 171/116
[2025-04-01] MEDS ORDERED: Morphine Sulfate 4 MG/1 ML Injection IV ONE (15:55)
[2025-04-01] MEDS ORDERED: Ondansetron HCl 2 MG / ML 2ML Vial IV ONE (16:00)
[2025-04-01] MEDS ORDERED: RX Prepack 6 Tabs Oxycodone 5mg UD ONE (16:45)
== END 2025-04-01 17:00 | disposition home or self-care (01) ==
LOC: ER 13:24
PROVIDERS: Physician Assistant
DX: F11.23 Opioid dependence with withdrawal (principal); C92.10 Chronic myeloid leukemia, BCR/ABL-positive, not having achieved remission; E10.65 Type 1 diabetes mellitus with hyperglycemia; E10.40 Type 1 diabetes mellitus with diabetic neuropathy, unspecified; I10 Essential (primary) hypertension; E78.5 Hyperlipidemia, unspecified; J44.9 Chronic obstructive pulmonary disease, unspecified; K21.9 Gastro-esophageal reflux disease without esophagitis; Z87.891 Personal history of nicotine dependence; Z88.1 Allergy status to other antibiotic agents; Z88.8 Allergy status to other drugs, medicaments and biological substances; Z79.4 Long term (current) use of insulin; Z79.899 Other long term (current) drug therapy; Z59.89 Other problems related to housing and economic circumstances
CPT/HCPCS: 71046; 80053; 84484; 85025; 93005; 93010; 96374; 96375; 99284-25; A9270; J2270; J2405

== ENCOUNTER → 2025-04-02 | Outpatient (CLI) | payer MEDICARE, OTHER ==
[2025-04-02 16:11] LABS: U Amphetamine Screen DETECTED; U Cannabinoids Screen DETECTED; U Opiates Screen DETECTED; U Oxycodone Screen DETECTED
[2025-04-02 16:12] LABS: U Barbituate Screen Not Detected; U Benzodiazapine Screen Not Detected; U Buprenorphine Screen Not Detected; U Cocaine Screen Not Detected; U Methadone Screen Not Detected; U Methamphetamine Screen Not Detected; U Phencyclidine Screen Not Detected
== END ==
LOC: LAB SHORT 14:54 → LAB 14:54
PROVIDERS: Internal Medicine Hematology & Oncology
DX: Z51.81 Encounter for therapeutic drug level monitoring (principal); Z79.899 Other long term (current) drug therapy

== ENCOUNTER 2025-04-08 12:10 | Emergency (ER) | payer MEDICARE, OTHER ==
[~2025-04-08] VITALS: Ht 188 cm; Wt 122.5 kg
[2025-04-08 13:01] LABS: BASOPHILS ABSOLUTE AUTO 0.12 K/mm3 (0.00-0.23); BASOPHILS PERCENT AUTO 1 % (0-2); EOSINOPHILS ABSOLUTE AUTO 0.02 K/mm3 (0.00-0.68); EOSINOPHILS PERCENT AUTO 0 % (0-6); Hematocrit 41.3 % (37.0-53.0); Hemoglobin 13.7 g/dL (13.5-17.5); IMMATURE GRAN ABSOLUTE AUTO 0.05 K/mm3 (0.00-0.10); IMMATURE GRAN PERCENT AUTO 1 % (0-1); LYMPHOCYTES ABSOLUTE AUTO 1.01 K/mm3 (0.84-5.20); LYMPHOCYTES PERCENT AUTO 11 % (21-46); MONOCYTES ABSOLUTE AUTO 0.38 K/mm3 (0.16-1.47); MONOCYTES PERCENT AUTO 4 % (4-13); Mean Corpuscular HGB Conc 33.2 g/dL (31.5-36.5); Mean Corpuscular Volume 91 fL (80-100); NEUTROPHILS ABSOLUTE AUTO 7.53 K/mm3 (1.96-9.15); NEUTROPHILS PERCENT AUTO 83 % (41-73); NRBC ABSOLUTE 0.00 K/mm3 (0.00-0.02); NRBC Auto 0.0 /100 WBC (0.0-0.2); Platelet Count 388 K/mm3 (150-400); RDW Coefficient Variation 13.2 % (11.7-14.2); RDW Standard Deviation 44.3 fL (35.1-46.3)
[2025-04-08 13:15] LABS: Alanine Aminotransfer (ALT/SGP 24.0 U/L (12-78); Albumin, Blood 3.7 g/dL (3.4-5.0); Albumin/Globulin Ratio 1.1 (0.8-1.8); Anion Gap 7.0 mmol/L (3-11); Aspartate Aminotrans (AST/SGOT 17.0 U/L (12-37); Bilirubin, Total 0.4 mg/dL (0.1-1.0); Blood Urea Nitrogen 10.0 mg/dL (8-24); CO2, Blood 28.0 mmol/L (21-32); Calcium, Blood 8.8 mg/dL (8.5-10.1); Chloride, Blood 106.0 mmol/L (98-108); Creatinine, Blood 0.68 mg/dL (0.60-1.20); Globulin, Blood 3.3 g/dL (2.2-4.0); Glucose, Blood 321.0 mg/dL (70-99); Potassium, Blood 4.0 mmol/L (3.5-5.5); Sodium, Blood 137.0 mmol/L (136-145); Total Protein, Blood 7.0 g/dL (6.4-8.2)
[2025-04-08] MEDS ORDERED: Morphine Sulfate 4 MG/1 ML Injection IV ONE (17:00)
[2025-04-08] MEDS ORDERED: NS 1,000 ML IV SCH (17:00)
[2025-04-08] MEDS ORDERED: Ondansetron HCl 2 MG / ML 2ML Vial IV ONE (17:00)
[2025-04-08 17:43] VITALS: BP 149/102
[2025-04-08] MEDS ORDERED: ACET500 PO (18:10)
== END 2025-04-08 18:19 | disposition home or self-care (01) ==
LOC: ER 12:10
PROVIDERS: Student in an Organized Health Care Education/Training Program
DX: R07.9 Chest pain, unspecified (principal); E10.649 Type 1 diabetes mellitus with hypoglycemia without coma; Z87.891 Personal history of nicotine dependence; F43.10 Post-traumatic stress disorder, unspecified; K21.9 Gastro-esophageal reflux disease without esophagitis; E10.40 Type 1 diabetes mellitus with diabetic neuropathy, unspecified; E78.5 Hyperlipidemia, unspecified; Z79.899 Other long term (current) drug therapy; Z88.1 Allergy status to other antibiotic agents; Z88.8 Allergy status to other drugs, medicaments and biological substances
CPT/HCPCS: 71046; 80053; 83690; 84484; 85025; 93005; 93010; 96361; 96374; 96375; 99285-25; J2270; J2405; J7030

== ENCOUNTER → 2025-04-09 | Outpatient (CLI) | payer MEDICARE, OTHER ==
[~2025-04-09] MED LIST changes: +ACET500 PO; +DICY20 PO
[2025-04-09 16:27] LABS: U Amphetamine Screen DETECTED; U Barbituate Screen Not Detected; U Benzodiazapine Screen Not Detected; U Buprenorphine Screen Not Detected; U Cannabinoids Screen DETECTED; U Cocaine Screen Not Detected; U Methadone Screen Not Detected; U Methamphetamine Screen Not Detected; U Opiates Screen DETECTED; U Oxycodone Screen Not Detected; U Phencyclidine Screen Not Detected
== END ==
LOC: LAB 13:41 → LAB SHORT 13:41
PROVIDERS: Internal Medicine Hematology & Oncology
DX: Z51.81 Encounter for therapeutic drug level monitoring (principal); Z79.899 Other long term (current) drug therapy

== ENCOUNTER 2025-04-12 15:42 | Emergency (ER) | payer MEDICARE, OTHER ==
[~2025-04-12] VITALS: Ht 188 cm; Wt 122.5 kg
[~2025-04-12 15:42] MED LIST changes: -DICY20 PO
[2025-04-12 16:22] VITALS: BP 158/98
[2025-04-12 16:45] LABS: pH Blood Venous 7.43 (7.34-7.37)
[2025-04-12 16:56] LABS: BASOPHILS ABSOLUTE AUTO 0.29 K/mm3 (0.00-0.23); BASOPHILS PERCENT AUTO 2 % (0-2); EOSINOPHILS ABSOLUTE AUTO 0.06 K/mm3 (0.00-0.68); EOSINOPHILS PERCENT AUTO 1 % (0-6); Hematocrit 44.1 % (37.0-53.0); Hemoglobin 14.9 g/dL (13.5-17.5); IMMATURE GRAN ABSOLUTE AUTO 0.18 K/mm3 (0.00-0.10); IMMATURE GRAN PERCENT AUTO 1 % (0-1); LYMPHOCYTES ABSOLUTE AUTO 2.31 K/mm3 (0.84-5.20); LYMPHOCYTES PERCENT AUTO 18 % (21-46); MONOCYTES ABSOLUTE AUTO 0.64 K/mm3 (0.16-1.47); MONOCYTES PERCENT AUTO 5 % (4-13); Mean Corpuscular HGB Conc 33.8 g/dL (31.5-36.5); Mean Corpuscular Volume 90 fL (80-100); NEUTROPHILS ABSOLUTE AUTO 9.28 K/mm3 (1.96-9.15); NEUTROPHILS PERCENT AUTO 73 % (41-73); NRBC ABSOLUTE 0.00 K/mm3 (0.00-0.02); NRBC Auto 0.0 /100 WBC (0.0-0.2); Platelet Count 585 K/mm3 (150-400); RDW Coefficient Variation 13.2 % (11.7-14.2); RDW Standard Deviation 43.4 fL (35.1-46.3)
[2025-04-12 17:16] LABS: Alanine Aminotransfer (ALT/SGP 26.0 U/L (12-78); Albumin, Blood 4.1 g/dL (3.4-5.0); Albumin/Globulin Ratio 1.2 (0.8-1.8); Anion Gap 5.0 mmol/L (3-11); Aspartate Aminotrans (AST/SGOT 19.0 U/L (12-37); Bilirubin, Total 0.5 mg/dL (0.1-1.0); Blood Urea Nitrogen 13.0 mg/dL (8-24); CO2, Blood 33.0 mmol/L (21-32); Calcium, Blood 9.5 mg/dL (8.5-10.1); Chloride, Blood 104.0 mmol/L (98-108); Creatinine, Blood 0.76 mg/dL (0.60-1.20); Globulin, Blood 3.5 g/dL (2.2-4.0); Glucose, Blood 147.0 mg/dL (70-99); Potassium, Blood 3.8 mmol/L (3.5-5.5); Sodium, Blood 138.0 mmol/L (136-145); Total Protein, Blood 7.6 g/dL (6.4-8.2)
[2025-04-12] MEDS ORDERED: DICY20 PO (21:24)
[2025-04-12] MEDS ORDERED: ONDA4ODT MM (21:24)
== END 2025-04-12 21:33 | disposition home or self-care (01) ==
LOC: ER 15:42
PROVIDERS: Emergency Medicine
DX: R10.30 Lower abdominal pain, unspecified (principal); R11.2 Nausea with vomiting, unspecified; D75.839 Thrombocytosis, unspecified; I10 Essential (primary) hypertension
CPT/HCPCS: 80053; 82803; 82947; 83605; 83690; 85025; 99284; A9270

== ENCOUNTER 2025-04-20 13:12 | Emergency (ER) | payer MEDICARE, OTHER ==
[~2025-04-20] VITALS: Ht 188 cm; Wt 122.5 kg
[~2025-04-20 13:12] MED LIST changes: +DICY20 PO
[2025-04-20 13:31] VITALS: BP 164/104
[2025-04-20 14:18] LABS: Hematocrit 44.6 % (37.0-53.0); Hemoglobin 14.8 g/dL (13.5-17.5); Mean Corpuscular HGB Conc 33.2 g/dL (31.5-36.5); Mean Corpuscular Volume 91 fL (80-100); NRBC ABSOLUTE 0.00 K/mm3 (0.00-0.02); NRBC Auto 0.0 /100 WBC (0.0-0.2); Platelet Count 726 K/mm3 (150-400); RDW Coefficient Variation 13.1 % (11.7-14.2); RDW Standard Deviation 43.4 fL (35.1-46.3)
[2025-04-20 14:23] LABS: Alanine Aminotransfer (ALT/SGP 30.0 U/L (12-78); Albumin, Blood 3.7 g/dL (3.4-5.0); Albumin/Globulin Ratio 1.1 (0.8-1.8); Anion Gap 11.0 mmol/L (3-11); Aspartate Aminotrans (AST/SGOT 27.0 U/L (12-37); Bilirubin, Total 0.3 mg/dL (0.1-1.0); Blood Urea Nitrogen 12.0 mg/dL (8-24); CO2, Blood 27.0 mmol/L (21-32); Calcium, Blood 8.8 mg/dL (8.5-10.1); Chloride, Blood 102.0 mmol/L (98-108); Creatinine, Blood 0.69 mg/dL (0.60-1.20); Globulin, Blood 3.4 g/dL (2.2-4.0); Glucose, Blood 336.0 mg/dL (70-99); Potassium, Blood 4.3 mmol/L (3.5-5.5); Sodium, Blood 136.0 mmol/L (136-145); Total Protein, Blood 7.1 g/dL (6.4-8.2)
[2025-04-20 14:51] LABS: BAND PERCENT MAN 6 % (0-8); BASOPHILS ABSOLUTE MAN 2.07 K/mm3 (0.00-0.23); BASOPHILS PERCENT MAN 6 % (0-2); EOSINOPHILS ABSOLUTE MAN 0.69 K/mm3 (0.00-0.68); EOSINOPHILS PERCENT MAN 2 % (0-6); LYMPHOCYTES ABSOLUTE MAN 3.11 K/mm3 (0.84-5.20); LYMPHOCYTES PERCENT MAN 9 % (21-46); METAMYELOCYTE ABSOLUTE MAN 3.11 K/mm3 (0.00-0.00); METAMYELOCYTE PERCENT MAN 9 % (0-0); MONOCYTES ABSOLUTE MAN 0.34 K/mm3 (0.16-1.47); MONOCYTES PERCENT MAN 1 % (4-13); MYELOCYTE ABSOLUTE MAN 3.11 K/mm3 (0.00-0.00); MYELOCYTE PERCENT MAN 9 % (0-0); NEUTROPHILS ABSOLUTE MAN 22.16 K/mm3 (1.96-9.15); SEG NEUTROPHILS PERCENT MAN 58 % (41-73)
[2025-04-20] MEDS ORDERED: OxyCODONE 10/Acetamin 325 TABLET PO ONE (17:10)
[2025-04-20] MEDS ORDERED: OXYC10ER PO ×3 (17:29→18:32)
== END 2025-04-20 17:43 | disposition home or self-care (01) ==
LOC: ER 13:12
PROVIDERS: Student in an Organized Health Care Education/Training Program
DX: F11.13 Opioid abuse with withdrawal (principal); E11.65 Type 2 diabetes mellitus with hyperglycemia; F43.10 Post-traumatic stress disorder, unspecified; J44.9 Chronic obstructive pulmonary disease, unspecified; E78.5 Hyperlipidemia, unspecified; K21.9 Gastro-esophageal reflux disease without esophagitis; Z79.899 Other long term (current) drug therapy; Z79.4 Long term (current) use of insulin; Z88.1 Allergy status to other antibiotic agents; Z88.8 Allergy status to other drugs, medicaments and biological substances
CPT/HCPCS: 80053; 82947; 85025; 99284; A9270

== ENCOUNTER → 2025-04-30 | Outpatient (CLI) | payer MEDICARE, OTHER ==
[2025-04-30 17:58] LABS: U Amphetamine Screen DETECTED; U Cannabinoids Screen DETECTED; U Oxycodone Screen DETECTED
[2025-04-30 17:59] LABS: U Barbituate Screen Not Detected; U Benzodiazapine Screen Not Detected; U Buprenorphine Screen Not Detected; U Cocaine Screen Not Detected; U Methadone Screen Not Detected; U Methamphetamine Screen Not Detected; U Opiates Screen Not Detected; U Phencyclidine Screen Not Detected
== END ==
LOC: LAB SHORT 13:14 → LAB 13:14
PROVIDERS: Internal Medicine Hematology & Oncology
DX: Z51.81 Encounter for therapeutic drug level monitoring (principal); Z79.899 Other long term (current) drug therapy

== ENCOUNTER 2025-05-05 12:23 | Inpatient (IN) | payer MEDICARE, OTHER ==
[~2025-05-05] VITALS: Ht 188 cm; Wt 124.5 kg
[~2025-05-05 12:23] MED LIST changes: -TESTOSTERONE75 G1; +TESTOSTERONE75 G1 TOP
[2025-05-05 12:49] LABS: Hematocrit 37.7 % (37.0-53.0); Hemoglobin 12.7 g/dL (13.5-17.5); Mean Corpuscular HGB Conc 33.7 g/dL (31.5-36.5); Mean Corpuscular Volume 89 fL (80-100); NRBC ABSOLUTE 0.07 K/mm3 (0.00-0.02); NRBC Auto 0.1 /100 WBC (0.0-0.2); Platelet Count 290 K/mm3 (150-400); RDW Coefficient Variation 13.3 % (11.7-14.2); RDW Standard Deviation 43.2 fL (35.1-46.3)
[2025-05-05 13:04] LABS: Alanine Aminotransfer (ALT/SGP 40.0 U/L (12-78); Albumin, Blood 3.4 g/dL (3.4-5.0); Albumin/Globulin Ratio 1.2 (0.8-1.8); Anion Gap 5.0 mmol/L (3-11); Aspartate Aminotrans (AST/SGOT 51.0 U/L (12-37); Bilirubin, Total 0.2 mg/dL (0.1-1.0); Blood Urea Nitrogen 11.0 mg/dL (8-24); CO2, Blood 29.0 mmol/L (21-32); Calcium, Blood 8.7 mg/dL (8.5-10.1); Chloride, Blood 111.0 mmol/L (98-108); Creatinine, Blood 0.67 mg/dL (0.60-1.20); Globulin, Blood 2.9 g/dL (2.2-4.0); Glucose, Blood 199.0 mg/dL (70-99); Potassium, Blood 4.0 mmol/L (3.5-5.5); Sodium, Blood 141.0 mmol/L (136-145); Total Protein, Blood 6.3 g/dL (6.4-8.2)
[2025-05-05 13:11] LABS: BAND PERCENT MAN 19 % (0-8); BASOPHILS ABSOLUTE MAN 6.26 K/mm3 (0.00-0.23); BASOPHILS PERCENT MAN 6 % (0-2); EOSINOPHILS ABSOLUTE MAN 0.00 K/mm3 (0.00-0.68); EOSINOPHILS PERCENT MAN 0 % (0-6); LYMPHOCYTES ABSOLUTE MAN 4.17 K/mm3 (0.84-5.20); LYMPHOCYTES PERCENT MAN 4 % (21-46); METAMYELOCYTE ABSOLUTE MAN 9.40 K/mm3 (0.00-0.00); METAMYELOCYTE PERCENT MAN 9 % (0-0); MONOCYTES ABSOLUTE MAN 5.22 K/mm3 (0.16-1.47); MONOCYTES PERCENT MAN 5 % (4-13); MYELOCYTE ABSOLUTE MAN 9.40 K/mm3 (0.00-0.00); MYELOCYTE PERCENT MAN 9 % (0-0); NEUTROPHILS ABSOLUTE MAN 64.76 K/mm3 (1.96-9.15); PROMYELOCYTE ABSOLUTE MAN 1.04 K/mm3 (0.00-0.00); PROMYELOCYTE PERCENT MAN 1 % (0-0); SEG NEUTROPHILS PERCENT MAN 43 % (41-73)
[2025-05-05 13:12] LABS: OTHER CELL PERCENT MAN 4 % (0-0)
[2025-05-05] MEDS ORDERED: Ketorolac Tromethamine 30mg Vial IV ONE (13:15)
[2025-05-05] MEDS ORDERED: FentaNYL Citrate 50 MCG/ML 2 ML Injection IV ONE (13:15)
[2025-05-05 13:58] LABS: Prothrombin Time Results 11.6 Sec (9.7-11.5)
[2025-05-05] MEDS ORDERED: HYDROmorphone HCl/Pf 1MG SYR IV ONE ×3 (14:15→22:40)
[2025-05-05 14:21] LABS: Influenza A, PCR NEGATIVE (NEGATIVE); Influenza B, PCR NEGATIVE (NEGATIVE); Resp Syncytial Virus, PCR NEGATIVE (NEGATIVE); SARS-Cov-2 (COVID-19) PCR, MMC NEGATIVE (NEGATIVE)
[2025-05-05 15:52] LABS: Phosphorus, Blood 1.5 mg/dL (2.5-4.9); Uric Acid, Blood 5.1 mg/dL (3.5-7.2)
[2025-05-05] MEDS ORDERED: FLU VACC TS2025-26(6MOS UP)/PF 45 MCG/0.5 ML SYRINGE IM SCH (16:35)
[2025-05-05] MEDS ORDERED: HYDROmorphone HCl/Pf 1MG SYR IV PRN ×2 (16:40→22:40)
[2025-05-05] MEDS ORDERED: Diazepam 5 MG / ML 2ML SYR IV PRN (16:45)
[2025-05-05] MEDS ORDERED: NS 1,000 ML IV ONE (16:50)
[2025-05-05] MEDS ORDERED: Insulin Human Lispro 100 Units/ML 3ML Syringe SC SCH (18:00)
[2025-05-05 19:44] VITALS: BP 150/103
[2025-05-05] MEDS ORDERED: Insulin Human Lispro 100 Units/ML 3ML Syringe SC ONE (20:35)
--- NOTE | 2025-05-05 21:57 | NUR ---
PATIENT WAS A NEW ADMIT ON DAY SHIFT. CBG AT THE TIME WAS 388 AND DAY RN GAVE 15 UNITS OF HUMALOG PER ORDER. DAY RN RECHECKED AT 363. CBG THIS SHIFT 284 AND HOSPITALIST CARISSA ZAVALA ORDERED AN ADDITIONAL 20 UNITS X ONE AND CHANGED SCHEDULE FROM AC TO Q4. WCTM.
--- NOTE | 2025-05-06 02:09 | NUR ---
RETURNED [facility] CALL TO CALL CENTER AND MESSAGE IS ALL CIRCUITS ARE BUSY AT THIS TIME.
--- NOTE | 2025-05-06 03:26 | NUR ---
PATIENT AGITATED WHEN HE CAN'T GET HIS PAIN MEDICATION EARLIER THAN TIMES. NEXT, HE WANTS TO GET HIS Q4 BLOOD GLUCOSE CHECKS DONE EARLIER AND REMINDED HE NEEDS TO STICK TO THE DOCTOR ORDER OF Q4 FOR PROPER SLIDING SCALE COVERAGE. WCTM.
[2025-05-06 04:12] VITALS: BP 145/105
--- NOTE | 2025-05-06 04:53 | NUR ---
SHIFT SUMMARY PATIENT HAD NO ACUTE CHANGES. CBG 284, 302, & 248. PATIENT REPORTS HE ONLY EATS ONCE A DAY AND HAS EATEN MULTIPLE X'S ON THIS SHIFT INCLUDING HIS OWN SODA WITH 62 GRAMS OF SUGAR. ALSO WENT OUT TO BUY FOOD AND BROUGTH BACK TO ROOM TO EAT BESIDES EATING DINNER TRAY. DENIES CHEST PAIN, SOB, AND N/V. VSS/AFEBRILE. GENERAL PAIN MANAGED WITH OXYCODONE 40 MG AND IV DILAUDID 1 MG THROUGHOUT SHIFT. PATIENT TRIED TO GET PAIN MEDICATION EARLIER THAN SCHEDULED AND REMINDED/EDUCATED OF NEXT SCHEDULE DOSES MULTIPLE TIMES. PATIENT ALSO ASKED TO GET HIS Q4 BLOOD GLUCOSE CHECK AN HOUR EARLIER THAN SCHEDULE. PATIENT REMINDED AND EDUCATED ON THE IMPORTANCE OF DOCTOR ORDERS AND TAKING PRESCRIBE MEDICATION ON TIME. PIV INTACT. CALLED BACK [facility] AND CIRCUITS HAVE BEEN BUSY. HASN'T SLEPT THIS SHIFT WITH SOME ANXIETY WALKING HALLS AND GOING OUTSIDE WITH/WITHOUT THERAPY DOG. SECURITY CAME INTO ROOM AND REPORTED HE WAS SEEN PROPPING DOOR OPEN TO COME BACK IN WRONG DOOR INSTEAD OF USING PROPER NIGHT ENTRANCE/EXIT. PATIENT WAS UPSET AND AGITATED WHEN TOLD. CALL LIGHT IN REACH. BED IN LOWEST POSITION. WILL CONTINUE TO MONITOR UNTIL DAY SHIFT NURSE ASSUMES CARE.
[2025-05-06] MEDS ORDERED: Pantoprazole Sodium 40 MG Injection IV SCH (06:00)
[2025-05-06 06:16] LABS: Hematocrit 35.4 % (37.0-53.0); Hemoglobin 11.7 g/dL (13.5-17.5); Mean Corpuscular HGB Conc 33.1 g/dL (31.5-36.5); Mean Corpuscular Volume 92 fL (80-100); NRBC ABSOLUTE 0.06 K/mm3 (0.00-0.02); NRBC Auto 0.1 /100 WBC (0.0-0.2); Platelet Count 250 K/mm3 (150-400); RDW Coefficient Variation 13.5 % (11.7-14.2); RDW Standard Deviation 45.5 fL (35.1-46.3)
[2025-05-06 06:36] LABS: Albumin, Blood 3.3 g/dL (3.4-5.0); Anion Gap 8 mmol/L (3-11); Blood Urea Nitrogen 14 mg/dL (8-24); CO2, Blood 29 mmol/L (21-32); Calcium, Blood 8.8 mg/dL (8.5-10.1); Chloride, Blood 107 mmol/L (98-108); Creatinine, Blood 0.67 mg/dL (0.60-1.20); Glucose, Blood 186 mg/dL (70-99); Magnesium, Blood 1.7 mg/dL (1.6-2.4); Phosphorus, Blood 3.8 mg/dL (2.5-4.9); Potassium, Blood 3.6 mmol/L (3.5-5.5); Sodium, Blood 140 mmol/L (136-145)
[2025-05-06 06:47] LABS: BAND PERCENT MAN 8 % (0-8); BASOPHILS ABSOLUTE MAN 1.81 K/mm3 (0.00-0.23); BASOPHILS PERCENT MAN 2 % (0-2); BLASTS PERCENT MAN 1 % (0-0); EOSINOPHILS ABSOLUTE MAN 0.90 K/mm3 (0.00-0.68); EOSINOPHILS PERCENT MAN 1 % (0-6); LYMPHOCYTES ABSOLUTE MAN 4.54 K/mm3 (0.84-5.20); LYMPHOCYTES PERCENT MAN 5 % (21-46); METAMYELOCYTE ABSOLUTE MAN 21.79 K/mm3 (0.00-0.00); METAMYELOCYTE PERCENT MAN 24 % (0-0); MONOCYTES ABSOLUTE MAN 4.54 K/mm3 (0.16-1.47); MONOCYTES PERCENT MAN 5 % (4-13); MYELOCYTE ABSOLUTE MAN 2.72 K/mm3 (0.00-0.00); MYELOCYTE PERCENT MAN 3 % (0-0); NEUTROPHILS ABSOLUTE MAN 52.66 K/mm3 (1.96-9.15); PROMYELOCYTE ABSOLUTE MAN 0.90 K/mm3 (0.00-0.00); PROMYELOCYTE PERCENT MAN 1 % (0-0); SEG NEUTROPHILS PERCENT MAN 50 % (41-73)
[2025-05-06] MEDS ORDERED: Insulin Human Lispro 100 Units/ML 3ML Syringe SC SCH ×2 (07:30)
[2025-05-06 07:52] VITALS: BP 160/107
[2025-05-06] MEDS ORDERED: Enoxaparin 40 MG/0.4 ML SYR SC SCH (09:00)
[2025-05-06] MEDS ORDERED: Ondansetron 8 MG SoluTab SL PRN (11:50)
[2025-05-06] MEDS ORDERED: Naloxone HCl 1MG / ML 2ML SYR IV PRN (11:50)
[2025-05-06] MEDS ORDERED: Loratadine 5 MG/5 ML 5MLUDC PO ONE (12:45)
[2025-05-06] MEDS ORDERED: ZYRTEC10 M2 PO (13:11)
[2025-05-06 15:02] VITALS: BP 142/82
[2025-05-06 16:18] LABS: Source, Urine Clean Catch
[2025-05-06 16:33] LABS: Bilirubin, Urine Neg (Neg); Color, Urine Yellow (P-Yellow); Glucose Qualitative, Urine 4+ (Neg); Ketones, Urine Neg (Neg); Leukocyte Esterase, Urine Neg (Neg); Protein, Urine Neg (Neg); Specific Gravity, Urine 1.015 (1.003-1.022); Urobilinogen, Urine NORM (Normal)
[2025-05-06 16:44] LABS: White Blood Cells, Urine 0-2 /hpf (0-5)
[2025-05-06 16:45] LABS: Red Blood Cells, Urine 50-100 /hpf (0-2)
--- NOTE | 2025-05-06 19:37 | NUR ---
SHIFT SUMMARY PT A&OX4, VSS, RA, IND IN ROOM. PT REQUEST MORE FREQUENT GLUCOSE CHECKS, ALREADY AT Q4. NON-COMPLIANT WITH ADA DIET, GETS FOOD FROM [employer] INCLUDING FULL SUGAR SOFT DRINKS WHEN HE WALKS SERVICE DOG. THIS RN EDUCATED PT ON IMPORTANCE OF FOLLOWING DIET AND REASONING OF HIGH SLIDING SCALE VS FLAT DOSE OF 30 UNITS AC. PT C/O PAIN OF 10/10, TAKES 50 MG OXYCODONE Q4, 1MG DILAUDED Q2, AND IBPROPHEN Q8 PRN, CALLS BEFORE NEXT DOSE DUE ASKING FOR MEDICATION. PT HAS CHRONIC PAIN WHICH IS MANAGED AT HOME WITH OXYCODONE AND IBPROPHEN, BUT STATES THAT HIS PAIN IS INCREASED. POSSIBLE TRANSFER TO [facility] PENDING LABS AND BED AVAILABILITY.
[2025-05-06 19:43] VITALS: BP 160/104
--- NOTE | 2025-05-07 00:47 | NUR ---
0030 IT WAS REPORTED TO ME THAT THE PATIENT WANTED TO SPEAK WITH THE PATENT PROSECUTION ATTORNEY. BEFORE ENTERING THE ROOM I ASKED WHAT THE SITUATION WAS. IT WAS REPORTED THAT THE PATIENT HAS NOT BEEN ALL THE WAY COMPLIANT WITH HIS DIABETIC DIET. HE HAS BEEN SEEN EATING AND DRINKING THINGS THAT ARE NOT ON HIS DIET THAT HE OBTAINED HIMSELF. IT WAS REPORTED THAT WHEN HE ASKED FOR FOOD OR DRINK THAT WAS NOT ON HIS DIET AND A DIFFERENT OPTION WAS OFFERED THAT IS ON HIS DIET, AND IT WAS EXPLAINED THAT THE STAFF COULD NOT BRING HIM THINGS THAT DO NOT COMPLY WITH THE DR'S ORDERED DIET, HE BECOMES VERY UPSET. I MYSELF WITTNESSED HIM BUYING HIMSELF FOOD FROM THE [employer] A LITTLE BEFORE THE START OF METAL TREATER. WHEN THE PATIENT'S BLOOD SUGAR WENT FROM 279 AT 1651 WITH 9 UNITS OF HUMALOG GIVEN AT 1832, THEN A BLOOD SUGAR OF 313 WITH 4 UNITS OF INSULIN GIVEN AT 1950 TO A BLOOD SUGAR OF 56 AT 2358 AND NO FURTHER INSULIN GIVEN BY THE NURSE, THE NURSE, TINY ODONNELL, FELT THERE WAS REASONABLE SUSPICION OF THE PATIENT POSSIBLY HAVING HIS OWN INSULIN WITH HIM IN HIS BELONGINGS AND POSSIBLY GIVING HIMSELF INSULIN. THE NURSE REPORT THAT SHE ASKED IF SHE COULD LOOK THROUGH HIS BELONGINGS TO SEE IF HE HAD INSULIN, THE PATIENT DECLINED. THE NURSE REPORTS THAT SHE INFORMED HIM THAT IF HE DID NOT WANT US TO WE COULD NOT LOOK THROUGH HIS BELONGINGS. BUT THAT WE WOULD BE REQUIRED TO LOCK THEM UP FOR SAFETY REASONS. THE NURSE REPORTS THAT HE THEN BECAME VERY UPSET. THE CHARGE NURSE, JOHNNY SANTANA, ATTEMPTED TO SPEAK WITH THE PATIENT. I AM UNSURE OF ALL OF THE DETAILS OF THAT CONVERSATION BUT IT WAS REPORTED THAT THE PATIENT WAS STILL UPSET AND ASKED TO SPEAK WITH THE PATENT PROSECUTION ATTORNEY. WHEN I WENT INTO THE ROOM TO SPEAK WITH THE PATIENT, THE PATIENT REPORTS THAT "HIS CIVIL RIGHT WERE BEING TAKEN AWAY". THE PATIENT REPORTS THAT THE NURSE IS "LYING" ABOUT WHAT SHE REPORTED AND THAT WHEN HE DECLINED TO HAVE HER LOOK THROUGH HIS BELONGINGS SHE INSTEAD SAID "WELL WE ARE GOING TO DO IT ANYWAYS". THE PATIENT REPEATED MULTIPLE TIMES "BUT I AM THE PATIENT" WHEN IT WAS EXPLAINED THAT HE HAD HIS OWN EXPERIENCE WITH WHAT HAPPENED AND THAT THE NURSE ALSO HAD HER OWN EXPERIENCE WITH WHAT HAPPENED. I EXPLAINED THAT SINCE I WAS NOT IN THE ROOM TO WITTNESS THE CONVERSATION I COULD NOT SAY THAT HE WAS COMPLETELY CORRECT OR THAT SHE WAS. BUT THAT OUR PROTOCOL WHEN THERE IS REASONABLE SUSPICION WAS TO ASK IF WE COULD LOOK THROUGH BELONGINGS FOR SOMETHING THAT COULD BE HARMFUL AND IF THE PATIENT REFUSED, TO LOCK THE BELONGS UP IN OR NEAR THE PATIENT'S ROOM AND RETURN THEM WHEN THEY DISCHARGE. I EXPLAINED THAT UNFORTUNATELY WE HAVE HAD PATIENT'S BRING THINGS IN THAT THEY USED FROM THEIR OWN PERSONAL BELONGINGS AND CAUSE THEMSELVES HARM. AFTER FURTHER CONVERSATION AND THE PATIENT VISIBLY BECOMING MORE UPSET AND NOT SHOWING ANY SIGNS OF LISTENING AND ACTUALLY HEARING WHAT ANYONE WAS SAYING, IT ENDED WITH THE PATIENT HANDING THE INSULIN HE HAD IN HIS BELONGINGS TO BE LOCKED UP. THE CHARGE NURSE OFFERED TO SHOW HIM WHERE WE WERE PUTTING HIS INSULIN, THE PATIENT REFUSED. THE PATIENT STATED HE WANTED TO MAKE A REPORT, I EXPLAINED I WOULD SEND A MESSAGE TO PATIENT ADVOCATE AND THEY WOULD COME SPEAK WITH HIM TOMORROW. THE PATIENT THEN STOMPED OUT OF HIS ROOM, DOWN THE HALLWAY TOWARDS THE OTHER DIMENSION SPECIFICATION INSPECTOR, BRODY VALENTINO. PLEASE SEE JOHNNY SANTANA'S NURSE NOTE FOR HIS DETAILS ABOUT WHAT OCCURRED.
--- NOTE | 2025-05-07 00:50 | NUR ---
WAS CALLED TO ROOM BY PRIMARY RN SECONDARY TO PT BEING UPSET OVER HIS BLOOD GLUCOSE LEVEL. PRIMARY RN, TINY NOTES PT'S BLOOD SUGAR FOR PT HAS DROPPED SIGNIFICANTLY FROM 360'S TO 57 WITH ONLY 4 UNITS OF COVERAGE. SHE HAD QUESTIONED PT IF HE HAD HIS OWN INSULIN AND IF HE HAD TAKEN INSULIN FROM HIS OWN MEDS. REQUEST WAS MADE TO LOCK HIS INSULIN UP IN MED DRAWER AND ONLY USE INSULIN THAT WAS ORDERED BY MD. AND THAT IF ADJUSTMENTS NEEDED TO BE MADE, THAT CALL TO HOSPITALIST WOULD BE MADE. PT WOULD NOT DE-ESCALATE AND WANTED ANOTHER RN. THIS HAS BEEN DONE. PT ALSO SPOKE WITH NURSING TUBE WINDER HAND. PT CONTINUES TO NOT DE-ESCALATE. PT STATES HE WANTED TO HAVE DILAUDID GIVEN TO HIM. PT ALSO HAD JUST TAKEN 50 MG OXYCODONE. PT COMES OUT OF ROOM, AND TRIES TO FIND OTHER NURSES TO GET INVOLVED IN HIS ANGER. CALL MADE TO DR NOEL TO INFORM MD THAT HE WOULD NEED TO BE EVALUATED FOR PT'S THREATS OF SELF HARMING. PT DOES RECEIVE DOSE OF DILAUDID FROM LETY DAWN. RECHECK OF BLOOD GLUCOSE DONE. SEE LAB VALUES FOR DETAILS. LETY THURMAN TO ASSUME CARE, PT TOLD HER TO LEAVE HIS ROOM AND THAT HE WAS REFUSING HER A NURSE. WILL KEEP STAFF OUT OF ROOM UNLESS MEDICALLY NECESSARY AND WAIT FOR PT TO CALM.
--- NOTE | 2025-05-07 00:50 | NUR ---
Hypoglycemia + Concern about pt self medicating w/ own insulin Since the shift has begun, patient (Mr. Nemesio Holder) had been claiming and continue to claim that we (the hospital staff) are not giving him enough insulin to treat his elevated blood sugars and that they have been 400+. His HS blood sugar check was 313 and patient received 4 units of Humalog per CS around 1999. Two hours later, patient is requesting fruit juice to drink. Alternatives were offered i.e. diet pepsi, diet sprite, etc which patient did not respond well at first, but then eventually asked for a diet pepsi. After another couple of hours, blood glucose was checked per order and found to be in the 50's. As soon as his blood sugar revealed 56, he immediately asked for the juices that he wanted earlier. Had Genny Thibodeaux CNA provide juice and snack. I was concern that patient was self medicating with own insulin because Mr. Friedmans blood glucose had gotten way too low way too fast, and with only 4 units of Humalog. Concern was brought up to Michael Doan, stoker erector. As I brought in midnight meds for Mr. Holder, I discuss my concern with him. I then asked for permission to look through his belongings; but patient refused. I acknowledged his refusal then asked that his belongings be locked up in his closet per hospital policy. Mr. Holder started yelling and claiming that I do not have the right to lock up his things or demand to go through them. He would not allow me to explain anything and kept talking over me interrupting every chance he had. Once I was able to explain that patient did not really have any other choice, Mr. Holder seemed a little more agreeable but was still very angry. He got up off his bed and went to his bag, started packing some of his belongings and whining loudly, "This is the kind of shit I get when I come here for care! This is not a way to treat a patient. You can't do that to me! Charge! Who's the charge around here?" Michael came to the bedside. I explained the situation to Michael while patient was complaining. Michael reviewed patient's chart and explained pretty much the same thing to the patient. Mr. Holder did not appreciate this and felt his that he was not heard and that no one was sympathizing with his illness. Patient even pointed out to Michael and me that at least his blood sugar isn't in the 400's anymore and it's finally low that he could eat or drink what he wanted. Stated that he just needed more insulin but no one cared to treat his hyperglycemia. Then pointed his finger at the door and demanded I "get out of here! I don't want her as my nurse anymore!" Patient's complaint about this RN did not get addressed the way he wanted it to with Michael so he wanted the Nursing Entry Level Programmer instead. Cristine Jurado was called to the bedside. Once Cristine was there, patient started making false accusations that I violated his patient rights and that, despite his refusal to allow me to go through his belongings, I was going to do it anyway. After seeing that I was of no use, Michael asked that I step out and let Cristine handle everything. Follow-up glucose checked by Genny and was within acceptable range (see chart). Handed off report given to Zenia Tran RN. Zenia to assume care at this point. Care relinquished.
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
[2025-05-07] MEDS ORDERED: Ketorolac Tromethamine 15mg Vial IV PRN (01:30)
[2025-05-07] MEDS ORDERED: LORazepam 2 MG/ML 1ML Injection IV ONE (01:30)
--- NOTE | 2025-05-07 01:39 | NUR ---
0139 PT ADVOCATE REQUEST SENT.
--- NOTE | 2025-05-07 02:33 | NUR ---
THIS RN ENTERED PTS ROOM TO ADMINISTER THE MEDICATIONS PRESCRIBED BY THE DOCTOR. THE PT CONTINUED TO VOCALIZE BEING "FORCED TO TAKE THESE DANGEROUS MEDS." THIS RN ADVISED THE PT HE DOES NOT HAVE TO TAKE ANYTHING HE DOES NOT WANT TO TAKE. THIS RN THEN REALIZED THERE IS A TABLET SITTING ON THE OBT AND IT WAS RECORDING. THIS RN ASKED IF THIS RN WAS BEING RECORDED AND HE STATED "YES" AND HE FELT IT WAS NECESSARY AND HIS RIGHT TO DO SO. THIS RN VOCALIZED THAT THIS RN DID NOT GIVE CONSENT TO BE RECORDED BUT THE PT ARGUED WITH THIS RN STATING IT IS HIS RIGHT AND CONTINUED TO RECORD. THIS RN AGAIN VERIFIED THAT THE PT WANTED THE MEDICATIONS PRESCRIBED TO HIM AND HE AGREED CURTLY "YES!". THIS RN ADMINISTERED THE MEDICATIONS PRESCRIBED AND LEFT THE ROOM DUE TO FEELING VERY UNSAFE IN THE PTS PRESENCE. THIS RN THEN REPORTED SITUATION TO CREAM CHEESE MAKER.
[2025-05-07 03:51] VITALS: BP 150/92
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
[2025-05-07 07:21] VITALS: BP 128/82
[2025-05-07 08:11] LABS: Hematocrit 34.3 % (37.0-53.0); Hemoglobin 11.4 g/dL (13.5-17.5); Mean Corpuscular HGB Conc 33.2 g/dL (31.5-36.5); Mean Corpuscular Volume 89 fL (80-100); NRBC ABSOLUTE 0.03 K/mm3 (0.00-0.02); NRBC Auto 0.0 /100 WBC (0.0-0.2); Platelet Count 202 K/mm3 (150-400); RDW Coefficient Variation 13.5 % (11.7-14.2); RDW Standard Deviation 43.9 fL (35.1-46.3)
[2025-05-07 08:28] LABS: Anion Gap 7.0 mmol/L (3-11); Blood Urea Nitrogen 14.0 mg/dL (8-24); CO2, Blood 30.0 mmol/L (21-32); Calcium, Blood 8.5 mg/dL (8.5-10.1); Chloride, Blood 106.0 mmol/L (98-108); Creatinine, Blood 0.74 mg/dL (0.60-1.20); Glucose, Blood 166.0 mg/dL (70-99); Potassium, Blood 4.1 mmol/L (3.5-5.5); Sodium, Blood 139.0 mmol/L (136-145)
[2025-05-07] MEDS ORDERED: Loratadine 5 MG/5 ML 5MLUDC PO SCH (09:00)
[2025-05-07 09:04] LABS: BAND PERCENT MAN 7 % (0-8); BASOPHILS ABSOLUTE MAN 2.88 K/mm3 (0.00-0.23); BASOPHILS PERCENT MAN 4 % (0-2); EOSINOPHILS ABSOLUTE MAN 2.16 K/mm3 (0.00-0.68); EOSINOPHILS PERCENT MAN 3 % (0-6); LYMPHOCYTES ABSOLUTE MAN 2.88 K/mm3 (0.84-5.20); LYMPHOCYTES PERCENT MAN 4 % (21-46); METAMYELOCYTE ABSOLUTE MAN 12.25 K/mm3 (0.00-0.00); METAMYELOCYTE PERCENT MAN 17 % (0-0); MONOCYTES ABSOLUTE MAN 2.16 K/mm3 (0.16-1.47); MONOCYTES PERCENT MAN 3 % (4-13); MYELOCYTE ABSOLUTE MAN 2.88 K/mm3 (0.00-0.00); MYELOCYTE PERCENT MAN 4 % (0-0); NEUTROPHILS ABSOLUTE MAN 44.70 K/mm3 (1.96-9.15); SEG NEUTROPHILS PERCENT MAN 55 % (41-73)
[2025-05-07 09:05] LABS: BLASTS PERCENT MAN 1 % (0-0); PROMYELOCYTE ABSOLUTE MAN 1.44 K/mm3 (0.00-0.00); PROMYELOCYTE PERCENT MAN 2 % (0-0)
--- NOTE | 2025-05-07 13:38 | NUR ---
Consultation order for maladaptive and disruptive patient conduct. Case reviewed with the attending provider, and the director of risk management. Given the clinical non-adherence, perpetual insubordination and aggressive behavior, I made the recommendation made to Dr Waggoner to expedite the principals discharge upon receipt of clearance from psychiatry regarding the principals newly expressed suicidality. Dr Waggoner verbalized concurrence.
--- NOTE | 2025-05-07 13:47 | NUR ---
"Spiritual Care | Patient Request This government relations director responded to Patient request undertanding the maladaptive concerns of the staff. Pt. is known to this government relations director from the community. Prior to coming to bedside this government relations director heard the Pt. communicating to a break nurse about the bad treatment he was recieving. Knowing this... This government relations director came to bedside, and the Pt. displayed a more receptive tone. With theraputic listening and a calm but clementine presence this government relations director sought to establish a measure of rapport. A Pastoral challenge was given to Pt. to stop assuming that the staff did not know how to care for him. Pts. demeanor mellowed. Matters of bolivar and belief are considered. Prayed for the Pt. Pt. displayed a more compliant demeanor. Pt. vebralized gratitude for the spiritual care visit. Debriefed with the Pts. attending nurse and verbalized my avialability should the Pt. become more agitated and difficult to work with. Nurse verbalize gratitude for the spiritual care support of both staff and Pt."
[2025-05-07] MEDS ORDERED: Insulin Human Lispro 100 Units/ML 3ML Syringe SC ONE (14:55)
--- NOTE | 2025-05-07 15:20 | NUR ---
NOTE: PER DR. KATZ, GIVE PT 10 UNITS OF INSULIN SO HE CAN EAT. PT STATES HE WILL EAT IF GIVEN THE INSULIN. THIS NURSE CONFIRMED TWICE THE PT WOULD AGREE TO EAT ONCE GIVEN THE INSULIN.
[2025-05-07 15:26] VITALS: BP 152/108
[2025-05-07 15:28] VITALS: BP 161/99
--- NOTE | 2025-05-07 16:53 | NUR ---
NOTE: PT WENT FOR A WALK OUTSIDE OF HIS ROOM, WAS GONE FOR ABOUT HALF AN HOUR. HE RETURNED TO THE ROOM WITH NO EVENTS.
--- NOTE | 2025-05-07 17:38 | NUR ---
SHIFT SUMMARY PT AOX4, IRRITABLE AND ARGUMENTATIVE. MADD CONSULT IN PLACE, SEE NOTE ABOUT CONSULT TODAY. MEDICATED FOR PAIN AND NAUSEA PER THE EMAR. US ORDERED FOR R LEG. PT UP AND OUT OF THE ROOM WITH HIS DOG. REPOSITIONS SELF IN BED. INDEPENDENT IN THE ROOM. CALLS AND MAKES HIS NEEDS KNOWN. NO ACUTE EVENTS. CALL LIGHT WITHIN REACH, BED LOCKED AND IN THE LOWEST POSITION. WILL REPORT TO ONCOMING NURSE.
[2025-05-07 20:01] VITALS: BP 137/85
[2025-05-08] MEDS ORDERED: Insulin Human Lispro 100 Units/ML 3ML Syringe SC ONE (03:15)
[2025-05-08] MEDS ORDERED: Diazepam 5 MG / ML 2ML SYR IV ONE (03:15)
--- NOTE | 2025-05-08 04:37 | NUR ---
SHIFT SUMMARY PATIENT ALERT AND ORIENTED X4- VERY IRRITABLE THROUGHOUT SHIFT. PATIENT CBG AT SHIFT CHANGE WAS 148 REQUIRING NO INSULIN PER SLIDING SCALE. AT APPROX 0000 PATIENT'S CBG WAS 212 AND PATIENT BECAME VERY UPSET STATING THAT THE ORDERED 6 UNITS OF INSULIN WOULD NOT BE SUFFICIENT. THIS RN STATED THAT I COULD ONLY GIVE THE AMOUNT OF INSULIN ORDERED, AND THE PATIENT THEN STARTED YELLING AT THIS RN STATING THAT "YOU HAVE NO COMPASSION!" AND THAT HE NEEDED TO SPEAK TO THE CHARGE NURSE RIGHT AWAY. CLINICAL QUALITY RN JOHNNY SANTANA CAME TO THE ROOM AND EXPLAINED TO THE PATIENT THAT WE COULD ONLY GIVE WHAT HAS BEEN PRESCRIBED. CHARGE NURSE AND PT AGREED THAT WE COULD RECHECK CBG AT APPROX 0200. AT THAT TIME PATIENT'S CBG WAS 223. THIS RN CALLED DR FILLER BLENDER PER PT REQUEST AND DR ANGELO GAVE THIS RN ORDER FOR 2 UNITS OF INSULIN NOW. PATIENT WAS ALSO REQUESTING VALUIM FOR HIS ANXIETY, ORDER RECIEVED FOR 2.5MG OF IV VALUIM NOW. AT APPROX 0350, PT CBG WAS 252. THIS RN GAVE PATIENT ORDERED DOSE OF 9 UNITS OF INSULIN. PATIENT CONTINUED TO BE UPSET ABOUT THE AMOUNT OF INSULIN HE RECIEVED AND REQUESTED MORE INSULIN. THIS RN CONTINUED TO EXPLAIN THAT I COULD NOT GIVE MORE INSULIN THAN ORDERED PER SLIDING SCALE. PT CONTINUES TO BE VERBALLY AGRESSIVE TOWARDS ALL STAFF. PT ALSO REPORTS THAT PAIN IS NOT BEING MANAGED WITH THE ORDERED PAIN MEDICATION, THOUGH THIS RN GAVE MEDICATIONS WHEN AVAILABLE PER EMAR. PT CONTINUES TO HAVE OUTBURSTS OF CRYING AND YELLING AT STAFF FOR VARIOUS REASONS. THIS RN AND OTHER STAFF ATTEMPTED TO USE CALMING TONE AND THERAPUTIC LISTENING, BUT PATIENT BECOMES MORE AGGITATED AND DIFFICULT TO WORK WITH. THIS RN WILL REPORT ONTO DAYSHIFT RN.
[2025-05-08 05:49] VITALS: BP 185/113
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
[2025-05-08 06:29] VITALS: BP 126/82
[2025-05-08 08:01] VITALS: BP 158/107
[2025-05-08 08:17] LABS: Hematocrit 33.6 % (37.0-53.0); Hemoglobin 11.6 g/dL (13.5-17.5); Mean Corpuscular HGB Conc 34.5 g/dL (31.5-36.5); Mean Corpuscular Volume 87 fL (80-100); NRBC ABSOLUTE 0.05 K/mm3 (0.00-0.02); NRBC Auto 0.1 /100 WBC (0.0-0.2); Platelet Count 175 K/mm3 (150-400); RDW Coefficient Variation 13.2 % (11.7-14.2); RDW Standard Deviation 42.3 fL (35.1-46.3)
[2025-05-08 08:41] LABS: Anion Gap 5.0 mmol/L (3-11); Blood Urea Nitrogen 19.0 mg/dL (8-24); CO2, Blood 31.0 mmol/L (21-32); Calcium, Blood 9.0 mg/dL (8.5-10.1); Chloride, Blood 106.0 mmol/L (98-108); Creatinine, Blood 0.78 mg/dL (0.60-1.20); Glucose, Blood 128.0 mg/dL (70-99); Magnesium, Blood 1.8 mg/dL (1.6-2.4); Phosphorus, Blood 5.5 mg/dL (2.5-4.9); Potassium, Blood 4.1 mmol/L (3.5-5.5); Sodium, Blood 138.0 mmol/L (136-145)
[2025-05-08 08:44] LABS: BAND PERCENT MAN 10 % (0-8); BASOPHILS ABSOLUTE MAN 1.79 K/mm3 (0.00-0.23); BASOPHILS PERCENT MAN 3 % (0-2); BLASTS PERCENT MAN 1 % (0-0); EOSINOPHILS ABSOLUTE MAN 1.79 K/mm3 (0.00-0.68); EOSINOPHILS PERCENT MAN 3 % (0-6); LYMPHOCYTES ABSOLUTE MAN 2.99 K/mm3 (0.84-5.20); LYMPHOCYTES PERCENT MAN 5 % (21-46); METAMYELOCYTE ABSOLUTE MAN 2.39 K/mm3 (0.00-0.00); METAMYELOCYTE PERCENT MAN 4 % (0-0); MONOCYTES ABSOLUTE MAN 1.19 K/mm3 (0.16-1.47); MONOCYTES PERCENT MAN 2 % (4-13); MYELOCYTE ABSOLUTE MAN 1.79 K/mm3 (0.00-0.00); MYELOCYTE PERCENT MAN 3 % (0-0); NEUTROPHILS ABSOLUTE MAN 46.70 K/mm3 (1.96-9.15); PROMYELOCYTE ABSOLUTE MAN 0.59 K/mm3 (0.00-0.00); PROMYELOCYTE PERCENT MAN 1 % (0-0); SEG NEUTROPHILS PERCENT MAN 68 % (41-73)
[2025-05-08] MEDS ORDERED: Multivitamins 1 Tab PO SCH (09:00)
[2025-05-08] MEDS ORDERED: ALLO300 PO (11:15)
[2025-05-08] MEDS ORDERED: HYDURE500 PO (11:17)
[2025-05-08] MEDS ORDERED: B-1100 M1 PO (11:18)
[2025-05-08] MEDS ORDERED: MULVITA PO (11:18)
[2025-05-08] MEDS ORDERED: LOSA50 PO (11:19)
--- NOTE | 2025-05-08 12:07 | NUR ---
AT 1135 THIS RN WENT OVER DISCHARGE INSTRUCTIONS WITH THE PATIENT, PATIENT VERBALIZED UNDERSTANDING OF DISCHARGE INSTRUCTIONS. THIS RN FAXED MEDICATIONS TO [facility] PER PATIENT REQUEST. THE PATIENT THEN REQUESTED HIS HOME MEDICATIONS OUT OF THE LOCKED MEDICATION DRAWER AND THIS RN RETURNED HIS MEDICATIONS TO HIM. HE ALSO REQUESTED THAT HIS BLOOD SUGAR BE TAKEN PRIOR TO HIM LEAVING AND AT 1141 HIS BLOOD SUGAR WAS TAKEN BY NICOLA SAVAGE AND HIS CBG RESULT WAS 471 (MG/DL).THE PATIENT THEN GRABBED HIS HOME INSULIN PEN AND STATED WHILE INJECTING HIMSELF "SEE, 45 UNITS, BECAUSE I NEED IT". THE PATIENT THEN GRABBED HIS BELONGINGS AND WAS ESCORTED DOWN TO THE PATIENT ENTANCE BY LETY DOTSON AND JANETTE WELCH.
--- NOTE | 2025-05-08 12:08 | NUR ---
PT DISCHARGED HOME. ROMERO FRITZ, RN DISCUSSED DISCHARGED INSTRUCTIONS WITH PT. PT STATED "YOU TOOK MY INSULIN. YOU ARE EVIL." THIS RN TOLD PT THAT WE WOULD BE RETURNING MEDICATIONS TO PT SOON DISCHARGE WAS COMPLETE. PT PERSONAL MEDICATIONS RETURNED TO PT. PT STATED," YOU NEED TO CHECK MY BLOOD SUGAR BECAUSE I ATE BREAKFAST" THIS RN ASKED JANETTE PETERSEN TO CHECK PT BLOOD SUGAR. CBG RESULTED 471. PT PICKED UP PERSONAL INSULIN PEN AND DIALED PEN TO AN UNKNOWN UNIT AND THEN SELF ADMISTERED THE INSULIN DOSE AT THE SAME TIME PT STATED "SEE, 45 UNITS BECAUSE I NEED IT." PT LEFT ROOM. THIS RN OFFERED TO TAKE PT DOWN VIA WHEEL CHAIR. PT DECLINED. ASSISTED PT WITH MARLEE AND WALKED PT DOWN TO PT ENTRANCE WHERE I WAS WAITING FOR PT. DR. KATZ NOTIFIED OF BLOOD SUGAR RESULT AND SELF ADMINISTERED INSULIN.
--- NOTE | 2025-05-08 13:00 | NUR ---
HARD SCRIPT SWAPPED PT RETURNED WITH HIS HARD SCRIPT STATING THE PHARMACY WOULD NOT FILL THE ORDER. DR. KATZ NOTIFIED AND NEW SCRIPT WAS GIVEN TO THE PATIENT. PREVIOUS SCRIPT GIVEN BACK TO DR. KATZ. PT STATED THAT HE GAVE HIMSELF INSULIN AND NEEDS SOMETHING TO EAT, SINCE HE WONT GET HOME QUICKLY HE HAD THOUGHT. PT PROVIDED WITH JUICE AND SNACK AND THIS RN OFFERED TO WHEEL PT DOWN TO THE ER IF BE SEEN IF HE FELT LIKE HIS BLOOD SUGAR WAS FALLING. PT REFUSED AND SAT IN THE HALLWAY WHILE HE WAITED FOR A RIDE.
== END 2025-05-08 11:54 | disposition home or self-care (01) | DRG 841 ==
LOC: ER 12:23 → MEDS 16:34
PROVIDERS: Student in an Organized Health Care Education/Training Program; ADMIT Internal Medicine
DX: C92.10 Chronic myeloid leukemia, BCR/ABL-positive, not having achieved remission (principal); R45.851 Suicidal ideations; I10 Essential (primary) hypertension; E78.5 Hyperlipidemia, unspecified; K21.9 Gastro-esophageal reflux disease without esophagitis; F32.A Depression, unspecified; J44.9 Chronic obstructive pulmonary disease, unspecified; E10.42 Type 1 diabetes mellitus with diabetic polyneuropathy; G47.33 Obstructive sleep apnea (adult) (pediatric); F43.12 Post-traumatic stress disorder, chronic; E10.65 Type 1 diabetes mellitus with hyperglycemia; Z99.81 Dependence on supplemental oxygen; Z90.89 Acquired absence of other organs; Z98.890 Other specified postprocedural states; Z87.891 Personal history of nicotine dependence; Z79.4 Long term (current) use of insulin; Z79.899 Other long term (current) drug therapy; Z88.1 Allergy status to other antibiotic agents; Z88.8 Allergy status to other drugs, medicaments and biological substances; Z87.828 Personal history of other (healed) physical injury and trauma
CPT/HCPCS: 36415; 71260; 80048; 80053; 80069; 81001; 82947; 83735; 84100; 84484; 84550; 85007; 85025; 85027; 85610; 85730; 87637; 93005; 93010; 93971; 94660; 96361; 96374-59; 96375-59; 96376-59; 99285-25; A9270; J1171; J1650; J1885; J2060; J2470; J3010; J3360; J7030; J7120; Q9967

== ENCOUNTER → 2025-05-09 | Outpatient (CLI) | payer MEDICARE, OTHER ==
[~2025-05-09] MED LIST changes: +B-1100 M1 PO; +LOSA50 PO; +MULVITA PO
[2025-05-09 17:02] LABS: U Amphetamine Screen DETECTED; U Barbituate Screen Not Detected; U Benzodiazapine Screen DETECTED; U Buprenorphine Screen Not Detected; U Cannabinoids Screen DETECTED; U Cocaine Screen Not Detected; U Methadone Screen Not Detected; U Methamphetamine Screen Not Detected; U Opiates Screen DETECTED; U Oxycodone Screen DETECTED; U Phencyclidine Screen Not Detected
== END ==
LOC: LAB 15:37 → LAB SHORT 15:37
PROVIDERS: Internal Medicine Hematology & Oncology
DX: Z51.81 Encounter for therapeutic drug level monitoring (principal); Z79.899 Other long term (current) drug therapy

== ENCOUNTER → 2025-05-29 | Outpatient (CLI) | payer MEDICARE, OTHER ==
[2025-05-29 15:13] LABS: Source, Urine Clean Catch
[2025-05-29 17:31] LABS: Bilirubin, Urine Neg (Neg); Color, Urine Yellow (P-Yellow); Glucose Qualitative, Urine Neg (Neg); Ketones, Urine 3+ (Neg); Leukocyte Esterase, Urine Neg (Neg); Protein, Urine Neg (Neg); Specific Gravity, Urine 1.010 (1.003-1.022); Urobilinogen, Urine NORM (Normal)
[2025-05-29 18:06] LABS: U Amphetamine Screen DETECTED; U Barbiturate Screen Not Detected; U Benzodiazapine Screen Not Detected; U Buprenorphine Screen Not Detected; U Cannabinoids Screen DETECTED; U Cocaine Screen Not Detected; U Methadone Screen Not Detected; U Methamphetamine Screen Not Detected; U Opiates Screen Not Detected; U Oxycodone Screen DETECTED; U Phencyclidine Screen Not Detected
== END ==
LOC: LAB SHORT 15:11 → LAB 15:11
PROVIDERS: Internal Medicine Hematology & Oncology
DX: Z79.899 Other long term (current) drug therapy (principal)
CPT/HCPCS: 81003

== ENCOUNTER → 2025-06-04 | Outpatient (CLI) | payer MEDICARE, OTHER | END | disposition home or self-care (01) | LOC: LAB 15:00 | DX: Z51.81 Encounter for therapeutic drug level monitoring (principal); Z79.899 Other long term (current) drug therapy ==

== ENCOUNTER → 2025-06-11 | Outpatient (CLI) | payer MEDICARE, OTHER ==
[2025-06-11 16:21] LABS: U Amphetamine Screen DETECTED; U Cannabinoids Screen DETECTED; U Oxycodone Screen DETECTED
[2025-06-11 16:22] LABS: U Barbiturate Screen Not Detected; U Benzodiazapine Screen Not Detected; U Buprenorphine Screen Not Detected; U Cocaine Screen Not Detected; U Methadone Screen Not Detected; U Methamphetamine Screen Not Detected; U Opiates Screen Not Detected; U Phencyclidine Screen Not Detected
== END ==
LOC: LAB 13:56 → LAB SHORT 13:56
PROVIDERS: Internal Medicine Hematology & Oncology
DX: Z51.81 Encounter for therapeutic drug level monitoring (principal); Z79.899 Other long term (current) drug therapy

== ENCOUNTER → 2025-06-19 | Outpatient (CLI) | payer MEDICARE, OTHER ==
[2025-06-19 17:29] LABS: U Amphetamine Screen DETECTED; U Barbiturate Screen Not Detected; U Benzodiazapine Screen Not Detected; U Buprenorphine Screen Not Detected; U Cannabinoids Screen DETECTED; U Cocaine Screen Not Detected; U Methadone Screen Not Detected; U Methamphetamine Screen Not Detected; U Opiates Screen Not Detected; U Oxycodone Screen DETECTED; U Phencyclidine Screen Not Detected
== END ==
LOC: LAB 15:13 → LAB SHORT 15:13
PROVIDERS: Internal Medicine Hematology & Oncology
DX: Z79.899 Other long term (current) drug therapy (principal)

== ENCOUNTER 2025-06-21 16:30 | Emergency (ER) | payer MEDICARE, OTHER ==
[~2025-06-21] VITALS: Ht 188 cm; Wt 124.7 kg
[2025-06-21] MEDS ORDERED: Morphine Sulfate 4 MG/1 ML Injection IV ONE (16:45)
[2025-06-21] MEDS ORDERED: Ondansetron HCl 2 MG / ML 2ML Vial IV ONE (16:45)
[2025-06-21 17:06] LABS: Hematocrit 36.4 % (37.0-53.0); Hemoglobin 11.6 g/dL (13.5-17.5); Mean Corpuscular HGB Conc 31.9 g/dL (31.5-36.5); Mean Corpuscular Volume 93 fL (80-100); NRBC ABSOLUTE 0.27 K/mm3 (0.00-0.02); NRBC Auto 0.2 /100 WBC (0.0-0.2); Platelet Count 332 K/mm3 (150-400); RDW Coefficient Variation 19.8 % (11.7-14.2); RDW Standard Deviation 65.8 fL (35.1-46.3)
[2025-06-21] MEDS ORDERED: Ketorolac Tromethamine 30mg Vial IV ONE (17:20)
[2025-06-21 17:42] LABS: Alanine Aminotransfer (ALT/SGP 50.0 U/L (12-78); Albumin, Blood 4.0 g/dL (3.4-5.0); Albumin/Globulin Ratio 1.3 (0.8-1.8); Anion Gap 2.0 mmol/L (3-11); Aspartate Aminotrans (AST/SGOT 43.0 U/L (12-37); Bilirubin, Total 0.3 mg/dL (0.1-1.0); Blood Urea Nitrogen 23.0 mg/dL (8-24); CO2, Blood 34.0 mmol/L (21-32); Calcium, Blood 9.1 mg/dL (8.5-10.1); Chloride, Blood 108.0 mmol/L (98-108); Creatinine, Blood 0.83 mg/dL (0.60-1.20); Globulin, Blood 3.1 g/dL (2.2-4.0); Glucose, Blood 51.0 mg/dL (70-99); Potassium, Blood 3.7 mmol/L (3.5-5.5); Sodium, Blood 140.0 mmol/L (136-145); Total Protein, Blood 7.1 g/dL (6.4-8.2)
[2025-06-21 17:48] LABS: BAND PERCENT MAN 10 % (0-8); BASOPHILS ABSOLUTE MAN 2.99 K/mm3 (0.00-0.23); BASOPHILS PERCENT MAN 2 % (0-2); BLASTS PERCENT MAN 3 % (0-0); EOSINOPHILS ABSOLUTE MAN 0.00 K/mm3 (0.00-0.68); EOSINOPHILS PERCENT MAN 0 % (0-6); LYMPHOCYTES ABSOLUTE MAN 7.49 K/mm3 (0.84-5.20); LYMPHOCYTES PERCENT MAN 5 % (21-46); METAMYELOCYTE ABSOLUTE MAN 11.99 K/mm3 (0.00-0.00); METAMYELOCYTE PERCENT MAN 8 % (0-0); MONOCYTES ABSOLUTE MAN 13.49 K/mm3 (0.16-1.47); MONOCYTES PERCENT MAN 9 % (4-13); MYELOCYTE ABSOLUTE MAN 23.99 K/mm3 (0.00-0.00); MYELOCYTE PERCENT MAN 16 % (0-0); NEUTROPHILS ABSOLUTE MAN 83.96 K/mm3 (1.96-9.15); PROMYELOCYTE ABSOLUTE MAN 1.49 K/mm3 (0.00-0.00); PROMYELOCYTE PERCENT MAN 1 % (0-0); SEG NEUTROPHILS PERCENT MAN 46 % (41-73)
[2025-06-21] MEDS ORDERED: DiphenhydrAMINE HCl 50 MG/ML 1ML Vial IV ONE (18:55)
[2025-06-21] MEDS ORDERED: HYDROmorphone HCl/Pf 1MG SYR IV ONE ×2 (19:40→23:10)
[2025-06-21] MEDS ORDERED: OxyCODONE HCL 30 MG TAB (Immediate Release) PO ONE ×2 (22:10→22:40)
[2025-06-22 00:15] VITALS: BP 140/83
== END 2025-06-22 00:25 | disposition home or self-care (01) ==
LOC: ER 16:30
PROVIDERS: Student in an Organized Health Care Education/Training Program
DX: S70.01XA Contusion of right hip, initial encounter (principal); C92.10 Chronic myeloid leukemia, BCR/ABL-positive, not having achieved remission; E10.9 Type 1 diabetes mellitus without complications; Z59.89 Other problems related to housing and economic circumstances; Z88.8 Allergy status to other drugs, medicaments and biological substances; Z79.899 Other long term (current) drug therapy; E78.5 Hyperlipidemia, unspecified; F43.10 Post-traumatic stress disorder, unspecified; X58.XXXA Exposure to other specified factors, initial encounter
CPT/HCPCS: 72193; 73502; 80053; 82947; 85025; 96374-59; 96375; 96376; 99284-25; A9270; J1171; J1200; J2270; J2405; Q9967

== ENCOUNTER → 2025-06-25 | Outpatient (CLI) | payer MEDICARE, OTHER ==
[2025-06-25 15:21] LABS: U Amphetamine Screen DETECTED; U Cannabinoids Screen DETECTED; U Oxycodone Screen DETECTED
[2025-06-25 15:22] LABS: U Barbiturate Screen Not Detected; U Benzodiazapine Screen Not Detected; U Buprenorphine Screen Not Detected; U Cocaine Screen Not Detected; U Methadone Screen Not Detected; U Methamphetamine Screen Not Detected; U Opiates Screen Not Detected; U Phencyclidine Screen Not Detected
== END ==
LOC: LAB 11:46 → LAB SHORT 11:46
PROVIDERS: Internal Medicine Hematology & Oncology
DX: Z79.899 Other long term (current) drug therapy (principal)

== ENCOUNTER 2025-06-27 20:51 | Emergency (ER) | payer MEDICARE, OTHER ==
[~2025-06-27] VITALS: Ht 188 cm; Wt 122.5 kg
[2025-06-27 21:27] LABS: Hematocrit 36.1 % (37.0-53.0); Hemoglobin 12.0 g/dL (13.5-17.5); Mean Corpuscular HGB Conc 33.2 g/dL (31.5-36.5); Mean Corpuscular Volume 91 fL (80-100); NRBC ABSOLUTE 0.14 K/mm3 (0.00-0.02); NRBC Auto 0.1 /100 WBC (0.0-0.2); Platelet Count 235 K/mm3 (150-400); RDW Coefficient Variation 20.3 % (11.7-14.2); RDW Standard Deviation 64.4 fL (35.1-46.3)
[2025-06-27 21:55] LABS: Alanine Aminotransfer (ALT/SGP 59.0 U/L (12-78); Albumin, Blood 4.3 g/dL (3.4-5.0); Albumin/Globulin Ratio 1.3 (0.8-1.8); Anion Gap 6.0 mmol/L (3-11); Aspartate Aminotrans (AST/SGOT 52.0 U/L (12-37); Bilirubin, Total 0.5 mg/dL (0.1-1.0); Blood Urea Nitrogen 12.0 mg/dL (8-24); CO2, Blood 32.0 mmol/L (21-32); Calcium, Blood 9.4 mg/dL (8.5-10.1); Chloride, Blood 103.0 mmol/L (98-108); Creatinine, Blood 0.79 mg/dL (0.60-1.20); Globulin, Blood 3.4 g/dL (2.2-4.0); Glucose, Blood 73.0 mg/dL (70-99); Potassium, Blood 3.2 mmol/L (3.5-5.5); Sodium, Blood 138.0 mmol/L (136-145); Total Protein, Blood 7.7 g/dL (6.4-8.2)
[2025-06-27 22:06] LABS: BAND PERCENT MAN 12 % (0-8); BASOPHILS ABSOLUTE MAN 2.18 K/mm3 (0.00-0.23); BASOPHILS PERCENT MAN 2 % (0-2); BLASTS PERCENT MAN 2 % (0-0); EOSINOPHILS ABSOLUTE MAN 2.18 K/mm3 (0.00-0.68); EOSINOPHILS PERCENT MAN 2 % (0-6); LYMPHOCYTES ABSOLUTE MAN 9.81 K/mm3 (0.84-5.20); LYMPHOCYTES PERCENT MAN 9 % (21-46); METAMYELOCYTE ABSOLUTE MAN 6.54 K/mm3 (0.00-0.00); METAMYELOCYTE PERCENT MAN 6 % (0-0); MONOCYTES ABSOLUTE MAN 6.54 K/mm3 (0.16-1.47); MONOCYTES PERCENT MAN 6 % (4-13); MYELOCYTE ABSOLUTE MAN 15.26 K/mm3 (0.00-0.00); MYELOCYTE PERCENT MAN 14 % (0-0); NEUTROPHILS ABSOLUTE MAN 64.32 K/mm3 (1.96-9.15); SEG NEUTROPHILS PERCENT MAN 47 % (41-73)
[2025-06-27 23:25] VITALS: BP 147/95
[2025-07-01] MEDS ORDERED: OXYC10TA19 PO (16:40)
== END 2025-06-27 23:33 | disposition home or self-care (01) ==
LOC: ER 20:51
PROVIDERS: Emergency Medicine
DX: D72.829 Elevated white blood cell count, unspecified (principal); I10 Essential (primary) hypertension; E10.40 Type 1 diabetes mellitus with diabetic neuropathy, unspecified; E78.5 Hyperlipidemia, unspecified; J44.9 Chronic obstructive pulmonary disease, unspecified; Z87.891 Personal history of nicotine dependence; Z79.899 Other long term (current) drug therapy; Z88.1 Allergy status to other antibiotic agents; Z88.8 Allergy status to other drugs, medicaments and biological substances
CPT/HCPCS: 80053; 84484; 85025; 93005; 93010; 99283-25

== ENCOUNTER 2025-06-29 18:28 | Emergency (ER) | payer MEDICARE, OTHER ==
[~2025-06-29] VITALS: Ht 188 cm; Wt 124.7 kg
[2025-06-29 19:35] LABS: Hematocrit 32.1 % (37.0-53.0); Hemoglobin 10.7 g/dL (13.5-17.5); Mean Corpuscular HGB Conc 33.3 g/dL (31.5-36.5); Mean Corpuscular Volume 89 fL (80-100); NRBC ABSOLUTE 0.14 K/mm3 (0.00-0.02); NRBC Auto 0.2 /100 WBC (0.0-0.2); Platelet Count 166 K/mm3 (150-400); RDW Coefficient Variation 20.0 % (11.7-14.2); RDW Standard Deviation 62.4 fL (35.1-46.3)
[2025-06-29 19:59] LABS: Alanine Aminotransfer (ALT/SGP 41.0 U/L (12-78); Albumin, Blood 3.8 g/dL (3.4-5.0); Albumin/Globulin Ratio 1.3 (0.8-1.8); Anion Gap 11.0 mmol/L (3-11); Aspartate Aminotrans (AST/SGOT 32.0 U/L (12-37); Bilirubin, Total 0.6 mg/dL (0.1-1.0); Blood Urea Nitrogen 14.0 mg/dL (8-24); CO2, Blood 25.0 mmol/L (21-32); Calcium, Blood 8.6 mg/dL (8.5-10.1); Chloride, Blood 101.0 mmol/L (98-108); Creatinine, Blood 0.66 mg/dL (0.60-1.20); Globulin, Blood 2.9 g/dL (2.2-4.0); Glucose, Blood 354.0 mg/dL (70-99); Potassium, Blood 4.1 mmol/L (3.5-5.5); Sodium, Blood 133.0 mmol/L (136-145); Total Protein, Blood 6.7 g/dL (6.4-8.2)
[2025-06-29 20:29] LABS: BAND PERCENT MAN 11 % (0-8); BASOPHILS ABSOLUTE MAN 3.24 K/mm3 (0.00-0.23); BASOPHILS PERCENT MAN 5 % (0-2); EOSINOPHILS ABSOLUTE MAN 1.94 K/mm3 (0.00-0.68); EOSINOPHILS PERCENT MAN 3 % (0-6); LYMPHOCYTES ABSOLUTE MAN 2.59 K/mm3 (0.84-5.20); LYMPHOCYTES PERCENT MAN 4 % (21-46); METAMYELOCYTE ABSOLUTE MAN 1.94 K/mm3 (0.00-0.00); METAMYELOCYTE PERCENT MAN 3 % (0-0); MONOCYTES ABSOLUTE MAN 3.24 K/mm3 (0.16-1.47); MONOCYTES PERCENT MAN 5 % (4-13); MYELOCYTE ABSOLUTE MAN 5.18 K/mm3 (0.00-0.00); MYELOCYTE PERCENT MAN 8 % (0-0); NEUTROPHILS ABSOLUTE MAN 44.71 K/mm3 (1.96-9.15); PROMYELOCYTE ABSOLUTE MAN 1.94 K/mm3 (0.00-0.00); PROMYELOCYTE PERCENT MAN 3 % (0-0); SEG NEUTROPHILS PERCENT MAN 58 % (41-73)
[2025-06-29] MEDS ORDERED: NS 1,000 ML IV SCH (20:30)
[2025-06-29] MEDS ORDERED: Pantoprazole Sodium 40 MG Injection IV ONE (20:30)
[2025-06-29] MEDS ORDERED: Insulin Regular 100 Unit/ML 1ML Dose SC ONE (20:35)
[2025-06-29] MEDS ORDERED: HYDROmorphone HCl/Pf 1MG SYR IV ONE (20:35)
[2025-06-29 20:44] LABS: Source, Urine Clean Catch
[2025-06-29 20:46] LABS: Bilirubin, Urine Neg (Neg); Glucose Qualitative, Urine 4+ (Neg); Ketones, Urine 4+ (Neg); Leukocyte Esterase, Urine Neg (Neg); Protein, Urine Neg (Neg); Specific Gravity, Urine 1.015 (1.003-1.022); Urobilinogen, Urine NORM (Normal)
[2025-06-29 20:53] LABS: Color, Urine Yellow (P-Yellow)
[2025-06-29 20:54] LABS: White Blood Cells, Urine 0-2 /hpf (0-5)
[2025-06-29] MEDS ORDERED: Ondansetron 4 MG SoluTab SL ONE (21:35)
[2025-06-29 22:08] LABS: Hematocrit 30.6 % (37.0-53.0); Hemoglobin 10.2 g/dL (13.5-17.5)
[2025-06-29] MEDS ORDERED: PANT40 PO (22:11)
[2025-06-29] MEDS ORDERED: CEPH500 PO (22:11)
[2025-06-29] MEDS ORDERED: RX Prepack 2 Tabs Ondansetron ODT 4MG UD ONE (22:15)
[2025-06-29 22:52] VITALS: BP 151/95
[2025-07-01] MEDS ORDERED: OXYC10TA19 PO (16:40)
== END 2025-06-29 22:54 | disposition home or self-care (01) ==
LOC: ER 18:28
PROVIDERS: Emergency Medicine; Student in an Organized Health Care Education/Training Program
DX: C92.10 Chronic myeloid leukemia, BCR/ABL-positive, not having achieved remission (principal); L03.115 Cellulitis of right lower limb; E86.0 Dehydration; D64.9 Anemia, unspecified; K92.2 Gastrointestinal hemorrhage, unspecified; T50.906A Underdosing of unspecified drugs, medicaments and biological substances, initial encounter; I10 Essential (primary) hypertension; E10.40 Type 1 diabetes mellitus with diabetic neuropathy, unspecified; K21.9 Gastro-esophageal reflux disease without esophagitis; E78.5 Hyperlipidemia, unspecified; J44.9 Chronic obstructive pulmonary disease, unspecified; Z91.148 Patient's other noncompliance with medication regimen for other reason; Z87.891 Personal history of nicotine dependence; Z88.1 Allergy status to other antibiotic agents; Z88.8 Allergy status to other drugs, medicaments and biological substances; Z79.4 Long term (current) use of insulin; Z79.890 Hormone replacement therapy; Z79.899 Other long term (current) drug therapy
CPT/HCPCS: 71046; 80053; 81001; 84484; 85014; 85018; 85025; 93005; 93010; 96361; 96374; 96375; 99284-25; A9270; J1171; J1815; J2470; J7030

== ENCOUNTER 2025-07-07 12:11 | Emergency (ER) | payer MEDICARE, OTHER ==
[~2025-07-07] VITALS: Ht 188 cm; Wt 108.9 kg
[2025-07-07 17:01] VITALS: BP 136/100
[2025-07-07] MEDS ORDERED: RX Prepack 6 Tabs Oxycodone 5mg UD ONE (18:05)
[2025-07-08] MEDS ORDERED: OXYC5 PO (13:10)
== END 2025-07-07 18:20 | disposition home or self-care (01) ==
LOC: ER 12:11
DX: S63.501A Unspecified sprain of right wrist, initial encounter (principal); S80.02XA Contusion of left knee, initial encounter; R07.89 Other chest pain; I10 Essential (primary) hypertension; E10.40 Type 1 diabetes mellitus with diabetic neuropathy, unspecified; K21.9 Gastro-esophageal reflux disease without esophagitis; E78.5 Hyperlipidemia, unspecified; J44.9 Chronic obstructive pulmonary disease, unspecified; Z88.1 Allergy status to other antibiotic agents; Z88.8 Allergy status to other drugs, medicaments and biological substances; Z79.4 Long term (current) use of insulin; Z79.899 Other long term (current) drug therapy; W19.XXXA Unspecified fall, initial encounter
CPT/HCPCS: 71045; 73130; 73562-LT; 82947; 84484; 93005; 93010; 99284-25; A9270

== ENCOUNTER 2025-07-08 10:07 | Emergency (ER) | payer MEDICARE, OTHER ==
[~2025-07-08] VITALS: Ht 188 cm; Wt 102.1 kg
[2025-07-08 10:09] VITALS: BP 170/109
[2025-07-08] MEDS ORDERED: OXYC5 PO (13:10)
== END 2025-07-08 13:36 | disposition home or self-care (01) ==
LOC: ER 10:07
DX: F11.23 Opioid dependence with withdrawal (principal); R07.9 Chest pain, unspecified; E10.40 Type 1 diabetes mellitus with diabetic neuropathy, unspecified; K21.9 Gastro-esophageal reflux disease without esophagitis; E78.5 Hyperlipidemia, unspecified; J44.9 Chronic obstructive pulmonary disease, unspecified; F43.10 Post-traumatic stress disorder, unspecified; Z87.891 Personal history of nicotine dependence; Z79.899 Other long term (current) drug therapy; Z79.4 Long term (current) use of insulin; Z88.1 Allergy status to other antibiotic agents; Z88.8 Allergy status to other drugs, medicaments and biological substances
CPT/HCPCS: 99283-25; A9270

== ENCOUNTER → 2025-07-09 | Outpatient (CLI) | payer MEDICARE, OTHER ==
[2025-07-09 16:39] LABS: U Amphetamine Screen DETECTED; U Barbiturate Screen Not Detected; U Benzodiazapine Screen Not Detected; U Buprenorphine Screen Not Detected; U Cannabinoids Screen DETECTED; U Cocaine Screen Not Detected; U Methadone Screen Not Detected; U Methamphetamine Screen Not Detected; U Opiates Screen Not Detected; U Oxycodone Screen DETECTED; U Phencyclidine Screen Not Detected
== END | disposition home or self-care (01) ==
LOC: LAB 12:00 → LAB SHORT 12:00
PROVIDERS: Internal Medicine Hematology & Oncology
DX: Z51.81 Encounter for therapeutic drug level monitoring (principal); Z79.899 Other long term (current) drug therapy

== ENCOUNTER → 2025-08-06 | Outpatient (CLI) | payer MEDICARE, OTHER ==
[2025-08-06 16:20] LABS: U Amphetamine Screen DETECTED; U Barbiturate Screen Not Detected; U Benzodiazapine Screen Not Detected; U Buprenorphine Screen Not Detected; U Cannabinoids Screen DETECTED; U Cocaine Screen Not Detected; U Methadone Screen Not Detected; U Methamphetamine Screen Not Detected; U Opiates Screen Not Detected; U Oxycodone Screen DETECTED; U Phencyclidine Screen Not Detected
== END | disposition home or self-care (01) ==
LOC: LAB SHORT 11:43 → LAB 11:43
PROVIDERS: Internal Medicine Hematology & Oncology
DX: C92.10 Chronic myeloid leukemia, BCR/ABL-positive, not having achieved remission (principal); Z79.899 Other long term (current) drug therapy